=== PATIENT | female | born 1950 | race Caucasian/White ===

== ENCOUNTER 2018-01-15 09:31 | Inpatient (IN) | payer MEDICAID, MEDICARE ==
[~2018-01-15] VITALS: Ht 170.2 cm; Wt 96.6 kg
--- NOTE | 2018-01-15 09:32 | NUR ---
PT BIBA ALS FOR CONFUSION TO BED 4
--- NOTE | 2018-01-15 09:35 | NUR ---
PATIENT BIBA FOR ALOC FROM [facility], [facility]. PATIENT HAS HX OF CVA WITH RIGHT SIDED DEFICITS, DEVELOPMENTAL DELAYS, CARDIAC DISORDER UNKNOWN. PATIENT HAS BILATERAL LEG PITTING EDEMA, CAPILLARY REFILL ON LEFT BIG TOE >3 SEC. BEDSIDE EKG SHOWS SIGNS OF PVCS. UPON AUSCULTATION, PATIENT HAS EXPIRATORY WHEEZES BILATERAL. PATIENT GCS IS 13. [facility] ATTEMPTED IV UNSUCCESSFUL. PATIENT POSITIONED FOR COMFORT; HOB ELEVATED; BEDRAILS UP X2; BED DOWN. ER MD MADE AWARE OF PT STATUS.
[2018-01-15 09:36] VITALS: BP 147/56
[2018-01-15] MEDS ORDERED: SIMV20TA1 PO (09:43)
[2018-01-15] MEDS ORDERED: DIVA500T1 PO (09:43)
[2018-01-15] MEDS ORDERED: LACT10SO1 PO (09:43)
[2018-01-15] MEDS ORDERED: AMLO10TA PO (09:43)
[2018-01-15] MEDS ORDERED: MIRABULK PO (09:43)
[2018-01-15] MEDS ORDERED: LISI-420 PO ×2 (09:43→14:32)
[2018-01-15] MEDS ORDERED: SYN.05 PO ×2 (09:43→14:32)
[2018-01-15] MEDS ORDERED: MULT-2173 PO (09:43)
[2018-01-15] MEDS ORDERED: ASCO500T45 PO (09:43)
[2018-01-15] MEDS ORDERED: ROB PO (09:43)
[2018-01-15] MEDS ORDERED: POTA8TER12 PO (09:43)
[2018-01-15] MEDS ORDERED: INSU10SU8 SUBQ (09:43)
[2018-01-15] MEDS ORDERED: CARB200C PO (09:43)
[2018-01-15] MEDS ORDERED: FURO-570 PO (09:43)
[2018-01-15] MEDS ORDERED: GLU1I IM (09:44)
[2018-01-15] MEDS ORDERED: KETO2CRE3 TP (09:44)
[2018-01-15] MEDS ORDERED: ALBUTEROL SULFATE/IPRATROPIU 3 ML SOL IH ONE (10:20)
--- NOTE | 2018-01-15 10:27 | NUR ---
PATIENT TAKEN TO CT
--- NOTE | 2018-01-15 10:28 | NUR ---
PT TAKEN TO CT IN [place]
--- NOTE | 2018-01-15 10:42 | NUR ---
PATIENT BACK FROM CT
--- NOTE | 2018-01-15 10:55 | NUR ---
QUALITY ASSURANCE SUPERVISOR TRIM AT BEDSIDE FOR BLOOD COLLECTION
--- NOTE | 2018-01-15 11:14 | NUR ---
PT RECEIVING BREATHING TX, TOLERATING WELL. CAREGIVER AT BEDSIDE.
[2018-01-15 11:19] LABS: BASOPHILS % (AUTO) 0.3 % (0.0-2.0); EOSINOPHILS # (AUTO) 0.1 K/uL (0-0.4); EOSINOPHILS % (AUTO) 0.7 % (0.0-4.0); HEMOGLOBIN 11.9 g/dL (12.0-16.0); LYMPHOCYTES # (AUTO) 1.8 K/uL (2.5-16.5); LYMPHOCYTES % (AUTO) 21.6 % (20.5-51.1); MEAN CORPUSCULAR HEMOGLOBIN 30 pg (27-31); MEAN CORPUSCULAR HGB CONC 33 g/dL (33-37); MEAN CORPUSCULAR VOLUME 91.1 fL (80-94); MONOCYTES % (AUTO) 12.2 % (1.7-9.3); NEUTROPHILS # (AUTO) 5.5 K/uL (1.8-7.7); NEUTROPHILS % (AUTO) 65.2 % (42.2-75.2); PLATELET COUNT (AUTO) 250 K/uL (140-450); RED BLOOD CELL COUNT(AUTO) 3.95 MIL/uL (4.20-5.40); RED CELL DISTRIBUTION WIDTH 13.1 % (11.6-13.7); WHITE BLOOD COUNT (AUTO) 8.5 K/uL (4.8-10.8)
[2018-01-15 11:30] LABS: ANION GAP 10.8 (8-16); CARBON DIOXIDE 30.3 mmol/L (21-32); CREATININE 0.8 mg/dL (0.6-1.3); POTASSIUM 4.1 mmol/L (3.5-5.1)
[2018-01-15 11:36] LABS: ALBUMIN 2.2 g/dL (3.4-5.0); PROTHROMBIN TIME 10.3 secs (10.8-13.4); TOTAL BILIRUBIN 0.2 mg/dL (0.0-1.0)
--- NOTE | 2018-01-15 11:52 | NUR ---
# 16 FR Silverman catheter with ml utilizing sterile technique. Immediate return of ml urine noted. Bedside drainage bag placed below level of bladder. Urine sample collected and sent to lab. Pt tolerated procedure .
[2018-01-15] MEDS ORDERED: ONDANSETRON 4 MG/2 ML VIAL IVP PRN (12:30)
[2018-01-15] MEDS ORDERED: ACETAMINOPHEN 325 MG TAB PO PRN (12:30)
[2018-01-15] MEDS ORDERED: ZOLPIDEM 5 MG TAB PO PRN (12:30)
[2018-01-15 13:32] LABS: FREE T4 (FREE THYROXINE) 1.05 ng/dL (0.76-1.46); MAGNESIUM 1.9 mg/dL (1.8-2.4); PHOSPHORUS 3.3 mg/dL (2.5-4.9); THYROID STIMULATING HORMONE 2.87 uIU/mL (0.34-3.74)
--- NOTE | 2018-01-15 13:36 | NUR ---
PT ARRIVED ON THE UNIT WITH 2 ER NURSES. PT IS AWAKE AND ORIENTED X2. CAREGIVER IS ACCOMPANYING HER. PT IS MENTALLY DELAYED. PT HAS IV ON R UPPER CHEST 25G AND A 20G EJ SL. PT HAS A GORDON CATH IN PLACE. PT IS BEDBOUND. SKIN INTACT. HAS A WET DIAPER. REMOVED. ADMINISTERED THE TELE MONITOR. YELLOW SOCKS, BAND, AND SIGN ON DOOR. PT IS BEDBOUND. PT ROOM AIR. NO SIGNS OF DISTRESS. WILL CONTINUE TO MONITOR PT.
[2018-01-15 13:42] LABS: APPEARANCE,URINE SL CLOUDY (CLEAR); BILIRUBIN,URINE NEGATIVE (NEGATIVE); BLOOD, URINE NEGATIVE (NEGATIVE); COLOR,URINE YELLOW (YELLOW); LEUKOCYTE ESTERASE ,URINE NEGATIVE (NEGATIVE); NITRITE, URINE NEGATIVE (NEGATIVE); UGLUCOSE 2+ (NEGATIVE)
--- NOTE | 2018-01-15 13:52 | NUR ---
Patient will be admitted to care of DR NOGUEIRA. Admited to TELE. Will go to room. Belongings list completed. Report to .
--- NOTE | 2018-01-15 14:02 | NUR ---
V/S WITHIN NORMAL RANGE. MRSA SCREENING DONE. CAREGIVER LEFT. PT IS RESTING COMFORTABLY. WILL CONTINUE TO MONITOR PT. WILL CONTINUE THE ADMISSIONS PROCESS.
[2018-01-15] MEDS: NACL 0.9% 1,000 ML IV SCH (14:15)
[2018-01-15 15:33] VITALS: BP 165/63
[2018-01-15] MEDS ORDERED: guaiFENesin 20 MG/ML UDC PO PRN (15:45)
[2018-01-15] MEDS ORDERED: GLUCAGON 1 MG VIAL IM PRN (15:45)
[2018-01-15] MEDS ORDERED: DEXTROSE 50% 50 ML SYR IVP PRN (15:50)
[2018-01-15] MEDS ORDERED: ALBUTEROL SULFATE/IPRATROPIU 3 ML SOL IH PRN (15:50)
[2018-01-15] MEDS ORDERED: FUROSEMIDE 40 MG/4 ML VIAL IVP SCH (15:57)
[2018-01-15 16:00] VITALS: BP 111/61
--- NOTE | 2018-01-15 16:22 | NUR ---
R/T IS HERE. EKG IS BEING DONE.
[2018-01-15] MEDS ORDERED: ASPIRIN 325 MG TAB PO SCH (16:33)
--- NOTE | 2018-01-15 16:34 | NUR ---
PT UNABLE TO DO INCENTIVE SPIRAMOOTRY Addendum: 01/15/18 at 1635 by Tanesha Mccormick RT SPIROMETER
--- NOTE | 2018-01-15 17:08 | NUR ---
ADMINISTERED NC O2 2L VIA NC. O2 LOW 90%. OK PER DR. ARMSTRONG.
--- NOTE | 2018-01-15 17:28 | NUR ---
RADIOLOGY IS HERE FOR CAROTID US AND BILATERAL LEGS.
--- NOTE | 2018-01-15 19:24 | NUR ---
ENDORSED PT TO THE NIGHTSHIFT NURSE AT BEDSIDE FOR CONTINUITY OF CARE. PT IS IN STABLE CONDITION.
--- NOTE | 2018-01-15 19:34 | NUR ---
RECEIVED REPORT FROM DAY SHIFT RN, PATIENT RESTING IN BED, AWAKE AND RESPONSIVE, DOES NOT ANSWER QUESTIONS, BUT FOLLOW SIMPLE COMMENDS. NO S/S OF DISTRESS NOTED, RESPIRATION EVEN AND UNLABORED, IV PATENT AND INTACT, INFUSING NS AT 10ML/HR. RT EJ NOTED, SALINE LOCK, DRESSING DRY AND INTACT. GORDON IN PLACED, DRAINING URINE BY GRAVITY. CALL LIGHT WITHIN REACH, SAFETY MEASURE ENSURED, WILL CONTINUE TO MONITOR.
[2018-01-15 20:00] VITALS: BP 148/85
[2018-01-15] MEDS: ALBUTEROL SULFATE/IPRATROPIU 3 ML SOL IH SCH (20:00)
[2018-01-15] MEDS ORDERED: CARBAMAZEPINE 200 MG PO SCH (21:00)
[2018-01-15] MEDS: BLOOD GLUCOSE MONITORING 1 DEV DEV FS SCH (21:15)
[2018-01-15] MEDS: ASCORBIC ACID 500 MG TAB PO SCH (21:16)
[2018-01-15] MEDS: LISINOPRIL 20 MG TAB PO SCH (21:16)
[2018-01-15] MEDS: carBAMazepine 200 MG TAB PO SCH (21:16)
[2018-01-15] MEDS: DIVALPROEX 500 MG TABER PO SCH (21:16)
[2018-01-15] MEDS: DOCUSATE SODIUM 100 MG GELCAP PO SCH (21:16)
--- NOTE | 2018-01-15 21:20 | NUR ---
DUE MEDICATION GIVEN, PATIENT TOLERATED WELL. NO S/S OF DISTRESS NOTED, RESPIRATION EVEN AND UNLABORED, CALL LIGHT WITHIN REACH, SAFETY MEASURE ENSURED, WILL CONTINUE TO MONITOR.
[2018-01-15] MEDS: INSULIN LISPRO SLIDING SCALE 100 UNITS/ML VIAL SUBQ PRN (21:26)
--- NOTE | 2018-01-15 22:15 | NUR ---
PATIENT REFUSED US ARTERIAL BILATERAL LOWER EXTREMITIES, DR. CURTIS IS AWARE.
--- NOTE | 2018-01-15 22:23 | NUR ---
NO CHANGE IN CONDITION, RESPIRATION EVEN AND UNLABORED, REPOSITIONED PATIENT WITH THE GLASS MOLD REPAIRER, CALL LIGHT WITHIN REACH, SAFETY MEASURE ENSURED, WILL CONTINUE TO MONITOR.
[2018-01-16] VITALS: BP 159/78
--- NOTE | 2018-01-16 00:23 | NUR ---
DR. CURTIS IS AWARE OF BP 159/78, HR 90. NO ORDER RECEIVED AT THIS TIME.
--- NOTE | 2018-01-16 01:10 | NUR ---
PATIENT IS OFF THE UNIT FOR CT CHEST WITH CONTRAST.
--- NOTE | 2018-01-16 01:50 | NUR ---
PATIENT IS BACK FROM CT IN STABLE CONDITION, PROCESS OWNER SAID PATIENT WAS CRYING AND NOT COOPERATIVE, SO THE TECH COULD NOT GET CT CHEST WITH CONTRAS DONE. MADE DR. CURTIS AWARE, SAID," THAT'S FINE."
--- NOTE | 2018-01-16 03:37 | NUR ---
PATIENT IS SLEEPING, RESPIRATION EVEN AND UNLABORED, REPOSITIONED PATIENT WITH THE STONER OUT, CALL LIGHT WITHIN REACH, SAFETY MEASURE ENSURED, WILL CONTINUE TO MONITOR.
[2018-01-16 04:00] VITALS: BP 153/65
--- NOTE | 2018-01-16 05:47 | NUR ---
PATIENT HAD SMALL AMOUNT OF BOWEL MOVEMENT, CLEANED AND REPOSITIONED PATIENT WITH THE TIE LAYER, CALL LIGHT WITHIN REACH, SAFETY MEASURE ENSURED, WILL CONTINUE TO MONITOR.
[2018-01-16] MEDS: INSULIN LISPRO SLIDING SCALE 100 UNITS/ML VIAL SUBQ PRN ×3 (06:27→22:19)
[2018-01-16] MEDS: BLOOD GLUCOSE MONITORING 1 DEV DEV FS SCH ×4 (06:28→22:11)
[2018-01-16 06:45] LABS: BASOPHILS % (AUTO) 0.6 % (0.0-2.0); EOSINOPHILS # (AUTO) 0.2 K/uL (0-0.4); EOSINOPHILS % (AUTO) 1.9 % (0.0-4.0); HEMATOCRIT 36.2 % (36-48); HEMOGLOBIN 12.3 g/dL (12.0-16.0); LYMPHOCYTES # (AUTO) 1.8 K/uL (2.5-16.5); LYMPHOCYTES % (AUTO) 21.2 % (20.5-51.1); MEAN CORPUSCULAR HEMOGLOBIN 31 pg (27-31); MEAN CORPUSCULAR HGB CONC 34 g/dL (33-37); MEAN CORPUSCULAR VOLUME 90.4 fL (80-94); MONOCYTES # (AUTO) 1.1 K/uL (0.8-1.0); MONOCYTES % (AUTO) 12.2 % (1.7-9.3); NEUTROPHILS # (AUTO) 5.6 K/uL (1.8-7.7); NEUTROPHILS % (AUTO) 64.1 % (42.2-75.2); PLATELET COUNT (AUTO) 263 K/uL (140-450); WHITE BLOOD COUNT (AUTO) 8.7 K/uL (4.8-10.8)
[2018-01-16] MEDS: ALBUTEROL SULFATE/IPRATROPIU 3 ML SOL IH SCH ×3 (06:52→19:40)
[2018-01-16 06:59] LABS: CARBON DIOXIDE 29.5 mmol/L (21-32); CREATININE 0.6 mg/dL (0.6-1.3); MAGNESIUM 1.8 mg/dL (1.8-2.4); PHOSPHORUS 3.6 mg/dL (2.5-4.9); POTASSIUM 3.5 mmol/L (3.5-5.1)
[2018-01-16 07:07] LABS: CHOL/HDL RATIO 3.5 (1-4.5)
--- NOTE | 2018-01-16 07:15 | NUR ---
ENDORSED PLAN OF CARE TO DAY SHIFT RN, PATIENT RESTING IN BED, IN STABLE CONDITION.
--- NOTE | 2018-01-16 07:16 | NUR ---
RECEIVED REPORT FROM THE J2EE APPLICATION DEVELOPER NURSE AT BEDSIDE FOR CONTINUITY OF CARE. PT IS AWAKE AND ORIENTED. INTRODUCED MYSELF AND UPDATED THE BOARD. SKIN INTACT. IV ON R EJ 20G SL, R UPPER CHEST SL, F FA 20G NS AT 10ML/HR. SKIN INTACT, EXCEPT R HEEL, BLACK SCAB. POSSIBLY ESCHAR P.U. GORDON CATH IN PLACE. NO NC IN PLACE. PT LIKE TO TAKE IT OFF. PER J2EE APPLICATION DEVELOPER NURSE, PT REFUSED CT/ ANGIO, DOPPLER. WILL KEEP HER NPO. WILL NEED TO DO THE CT/ANGIO TODAY PER MD.
[2018-01-16 08:00] VITALS: BP 126/63
--- NOTE | 2018-01-16 09:12 | NUR ---
PATIENT HAS BEEN SCREENED AND CATEGORIZED MODERATE NUTRITION RISK. PATIENT WILL BE SEEN WITHIN 3-5 DAYS OF ADMISSION. 01/18/18 01/20/[address]
[2018-01-16] MEDS ORDERED: LORazepam 2 MG/ML VIAL IVP SCH ×2 (09:30→11:00)
[2018-01-16] MEDS: LEVOFLOXACIN 750 MG/D5W PREMIX 150 ML IV SCH (09:41)
[2018-01-16] MEDS: ECOTRIN 81 MG TABEC PO SCH (09:42)
[2018-01-16] MEDS: DOCUSATE SODIUM 100 MG GELCAP PO SCH ×2 (09:42→22:22)
[2018-01-16] MEDS: FUROSEMIDE 20 MG/2 ML VIAL IVP SCH ×2 (09:42→22:22)
[2018-01-16] MEDS: POLYETHYLENE GLYCOL 17 GM/PKT PO SCH (09:43)
[2018-01-16] MEDS: amLODIPine 5 MG TAB PO SCH (09:43)
[2018-01-16] MEDS: DIVALPROEX 500 MG TABER PO SCH ×2 (09:43→22:23)
[2018-01-16] MEDS: LEVOTHYROXINE 0.075 MG TAB PO SCH (09:44)
[2018-01-16] MEDS: POTASSIUM CHLORIDE 8 MEQ TABER PO SCH (09:44)
[2018-01-16] MEDS: PANTOPRAZOLE 40 MG TABEC PO SCH (09:44)
[2018-01-16] MEDS: ASCORBIC ACID 500 MG TAB PO SCH ×2 (09:45→22:23)
[2018-01-16] MEDS: carBAMazepine 200 MG TAB PO SCH ×2 (09:45→22:24)
[2018-01-16] MEDS: MULTIVITAMIN 1 TAB PO SCH (09:45)
[2018-01-16] MEDS: LISINOPRIL 20 MG TAB PO SCH ×2 (09:45→22:24)
[2018-01-16] MEDS: KETOCONAZOLE 2% 15 GM TUBE TP SCH (09:46)
[2018-01-16] MEDS: INSULIN NPH HUM/REG INSULIN HM 100 UNIT/ML 10 ML VIAL SUBQ SCH (09:47)
--- NOTE | 2018-01-16 09:50 | NUR ---
ADMINISTERED MORNING MEDS. CRUSHED IN APPLE SAUCE.PT TOLERATED WELL. WILL CONTINUE TO MONITOR PT.
--- NOTE | 2018-01-16 10:40 | NUR ---
C/T IS TAKING PT FOR THE CT/ANGIO. ATIVAN GIVEN PRIOR. PT SLEEPING SOUNDLY. WE WILL SEE IF SHE WILL COOPERATE.
--- NOTE | 2018-01-16 11:00 | NUR ---
CT CALLED. PT UNCOOPERATIVE. OVERRIDE ANOTHER 1 MG OF ATIVAN AND ADMINISTERED IN THE CT ROOM. ONCE THEY STARTED THE CT CONTRAST, IV INFILTRATED. IV NO GOOD. BROUGHT PT BACK. NOTIFIED .
[2018-01-16] MEDS ORDERED: LORazepam 2 MG/ML VIAL ONE (11:01)
[2018-01-16 12:00] VITALS: BP 155/67
[2018-01-16] MEDS: NACL 0.9% 1,000 ML IV SCH (12:28)
[2018-01-16] MEDS ORDERED: hePARIN / DEXT 5% PREMIX 250 ML IV SCH ×3 (14:15→15:30)
[2018-01-16] MEDS ORDERED: HEPARIN PER PHARMACY MC PRN (14:15)
--- NOTE | 2018-01-16 14:22 | NUR ---
U/S TECH HERE FOR PT'S DOPPLER STUDIES IN BLE.
[2018-01-16 16:00] VITALS: BP 126/63
--- NOTE | 2018-01-16 16:10 | NUR ---
VQ SCAN TO BE DONE AROUND 1999. TECH WILL BE COMING FROM [place]. AWARE. WILL CONTINUE TO KEEP PT NPO.
--- NOTE | 2018-01-16 18:54 | NUR ---
PT SLEEPING SOUNDLY. NO SIGNS OF DISTRESS. WILL CONTINUE TO MONITOR PT.
--- NOTE | 2018-01-16 19:24 | NUR ---
ENDORSED PT TO THE PATTERN TECHNICIAN NURSE AT BEDSIDE FOR CONTINUITY OF CARE. PT IS RESTING COMFORTABLY. NO SIGNS OF DISTRESS. HEPARIN DRIP INFUSING AT 14ML/HR. PTT AT 2200.
--- NOTE | 2018-01-16 19:25 | NUR ---
RECEIVED PT FROM AM NURSE AT THE BEDSIDE FOR CONTINUITY OF CARE. PT IS ON TELE MONITOR. INTRODUCED SELF TO PT AND UPDATED BOARD. PT HAS RT EXTERNAL JUGULAR ACCESS ,20G. HEPARIN DRIP INFUSING WELL. LINE INTACT AND PATENT. PT HAS ANOTHER IV ACCESS ON RT CHEST , 24 G. LINE IS INTACT. PT HAS GORDON CATHETER. DRAINING WITH CLEAR URINE. SIDE RAILS ARE PADDED FOR SEIZURE PRECAUTION. BED IN LOW POSITION. WILL DO FREQUENT CHECKS. CALL LIGHT WITHIN REACH. WILL CONTINUE TO MONITOR.
--- NOTE | 2018-01-16 19:52 | NUR ---
RECEIVED PATIENT ON 2L NASAL CANNULA. SCHEDULED BREATHING TREATMENT ADMINISTERED. PT TOLERATED TX WELL, NO ADVERSE SIDE EFFECTS. NO RESPIRATORY DISTRESS NOTED AT THIS TIME. WILL CONTINUE TO MONITOR.
[2018-01-16 20:00] VITALS: BP 144/69
--- NOTE | 2018-01-16 20:45 | NUR ---
TECH HERE FOR PULMONARY VQ SCAN .
[2018-01-16] MEDS ORDERED: SIMVASTATIN 40 MG TAB PO SCH (21:00)
--- NOTE | 2018-01-16 22:15 | NUR ---
PULMONARY VQ SCAN DONE AT BEDSIDE . WILL FOLLOW UP RESULT.
[2018-01-16] MEDS: CLINDAMYCIN 600 MG in DEXTROSE 5% 50 ML IV SCH (22:28)
--- NOTE | 2018-01-16 22:42 | NUR ---
VBrowsarity SCAN TECH CAME BACK. HE SAID RESULT MAY NOT BE READY TONIGHT. BUT STILL HAVE TO FOLLOW UP
--- NOTE | 2018-01-17 00:15 | NUR ---
HEPARIN DRIP WITHHELD FOR 1 HR PER PROTOCOL. PTT 96.2.
[2018-01-17 00:30] VITALS: BP 121/59
--- NOTE | 2018-01-17 01:15 | NUR ---
ITZEL SEPULVEDA RESIDENT INFORMED ABOUT PULMONARY VQ SCAN RESULT. DR MARQUES , MIGHT STOP HEPARIN DRIP IN MORNING. WAITING FOR DR AYALA TO DECIDE STOPPING OF HEPARIN. OKAY TO CONTINUE HEPARIN PER PROTOCOL AT THIS TIME. Addendum: 01/17/18 at 0122 by John Valadez RN CORRECTION DR SEPULVEDA
[2018-01-17 03:45] VITALS: BP 121/57
--- NOTE | 2018-01-17 04:15 | NUR ---
PT HAS BEEN REPOSITIONED FOR COMFORT. NO C/O ANY PAIN NOTED.
[2018-01-17] MEDS: CLINDAMYCIN 600 MG in DEXTROSE 5% 50 ML IV SCH ×2 (05:20→12:28)
[2018-01-17] MEDS: BLOOD GLUCOSE MONITORING 1 DEV DEV FS SCH ×3 (06:32→16:49)
[2018-01-17] MEDS: INSULIN LISPRO SLIDING SCALE 100 UNITS/ML VIAL SUBQ PRN ×2 (06:33→13:01)
--- NOTE | 2018-01-17 06:33 | NUR ---
BS CHECKED , 205 NOTED. ADMINISTERED 4 UNITS OF HUMALOG.
--- NOTE | 2018-01-17 07:10 | NUR ---
ENDORSED PT TO AM NURSE AT BEDSIDE FOR CONTINUITY OF CARE. PT IN STABLE CONDITION.
--- NOTE | 2018-01-17 07:11 | NUR ---
RECEIVED REPORT FROM UMBRELLA FRAME MAKER NURSE AT THE BEDSIDE FOR CONTINUITY OF CARE. PT IS ON TELE MONITOR. INTRODUCED SELF TO PT AND UPDATED BOARD. PT HAS RT EXTERNAL JUGULAR ACCESS, 20G WITH HEPARIN DRIP INFUSING WELL, INTACT, ASYMPTOMATIC, AND PATENT. PT HAS IV ACCESS ON RT CHEST, 24 G, PATENT, INTACT, AND ASYMPTOMATIC, INFUSING NS AT 10ML/HR. PT HAS GORDON CATHETER. DRAINING TO GRAVITY WITH CLEAR, YELLOW URINE. SAFETY AND SEIZURE PRECAUTIONS IN PLACE, SIDE RAILS ARE PADDED, BED IN LOW POSITION. CALL LIGHT WITHIN REACH. WILL CONTINUE TO MONITOR PATIENT.
[2018-01-17] MEDS: ALBUTEROL SULFATE/IPRATROPIU 3 ML SOL IH SCH ×2 (07:19→11:34)
--- NOTE | 2018-01-17 07:40 | NUR ---
DOCTORS MAKING THEIR ROUNDS. ORDERED HEPARIN DRIP TO BE DISCONTINUED. HEPARIN DRIP DISCONTINUED.
[2018-01-17 08:00] VITALS: BP 126/85
[2018-01-17 08:40] LABS: BASOPHILS % (AUTO) 0.4 % (0.0-2.0); EOSINOPHILS # (AUTO) 0.2 K/uL (0-0.4); EOSINOPHILS % (AUTO) 2.6 % (0.0-4.0); HEMATOCRIT 39.1 % (36-48); LYMPHOCYTES # (AUTO) 1.5 K/uL (2.5-16.5); LYMPHOCYTES % (AUTO) 19.2 % (20.5-51.1); MEAN CORPUSCULAR HEMOGLOBIN 31 pg (27-31); MEAN CORPUSCULAR HGB CONC 33 g/dL (33-37); MEAN CORPUSCULAR VOLUME 91.5 fL (80-94); MONOCYTES # (AUTO) 0.7 K/uL (0.8-1.0); MONOCYTES % (AUTO) 8.8 % (1.7-9.3); NEUTROPHILS # (AUTO) 5.4 K/uL (1.8-7.7); PLATELET COUNT (AUTO) 278 K/uL (140-450); RED BLOOD CELL COUNT(AUTO) 4.27 MIL/uL (4.20-5.40); RED CELL DISTRIBUTION WIDTH 13.1 % (11.6-13.7); WHITE BLOOD COUNT (AUTO) 7.9 K/uL (4.8-10.8)
[2018-01-17 08:50] LABS: MAGNESIUM 1.9 mg/dL (1.8-2.4)
[2018-01-17 08:51] LABS: ANION GAP 12.1 (8-16); CARBON DIOXIDE 29.4 mmol/L (21-32); CREATININE 0.8 mg/dL (0.6-1.3); POTASSIUM 3.5 mmol/L (3.5-5.1)
[2018-01-17] MEDS: MULTIVITAMIN 1 TAB PO SCH (09:05)
[2018-01-17] MEDS: PANTOPRAZOLE 40 MG TABEC PO SCH (09:05)
[2018-01-17] MEDS: DIVALPROEX 500 MG TABER PO SCH (09:05)
[2018-01-17] MEDS: LEVOTHYROXINE 0.075 MG TAB PO SCH (09:05)
[2018-01-17] MEDS: amLODIPine 5 MG TAB PO SCH (09:05)
[2018-01-17] MEDS: FUROSEMIDE 20 MG/2 ML VIAL IVP SCH (09:05)
[2018-01-17] MEDS: LISINOPRIL 20 MG TAB PO SCH (09:06)
[2018-01-17] MEDS: carBAMazepine 200 MG TAB PO SCH (09:06)
[2018-01-17] MEDS: ASCORBIC ACID 500 MG TAB PO SCH (09:06)
[2018-01-17] MEDS: DOCUSATE SODIUM 100 MG GELCAP PO SCH (09:06)
[2018-01-17] MEDS: POTASSIUM CHLORIDE 8 MEQ TABER PO SCH (09:07)
[2018-01-17] MEDS: POLYETHYLENE GLYCOL 17 GM/PKT PO SCH (09:09)
--- NOTE | 2018-01-17 09:30 | NUR ---
LAB CALLED ABOUT CRITICAL VALUE OF APTT 60.0. INFORMED DR. LUNDBERG. NO NEW ORDERS AT THIS TIME.
[2018-01-17] MEDS: KETOCONAZOLE 2% 15 GM TUBE TP SCH (09:31)
[2018-01-17] MEDS: LEVOFLOXACIN 750 MG/D5W PREMIX 150 ML IV SCH (09:37)
[2018-01-17] MEDS: INSULIN NPH HUM/REG INSULIN HM 100 UNIT/ML 10 ML VIAL SUBQ SCH (09:43)
[2018-01-17] MEDS: ECOTRIN 81 MG TABEC PO SCH (09:50)
--- NOTE | 2018-01-17 09:50 | NUR ---
ADMINISTERED ORDERED MEDICATIONS. PATIENT TOLERATED THEM. PATIENT NOW RESTING IN BED SLEEPING, NO SIGNS OF DISTRESS OR SOB NOTED. FLACC-0. SAFETY AND SEIZURE PRECAUTION IN PLACE, BED ON LOWEST SETTING, BED ALARM ON, CALL LIGHT WITHIN REACH, WILL CONTINUE TO MONITOR PATIENT. Addendum: 01/17/18 at 1027 by Carroll Saul RN BLOOD SUGAR 275, ORDERED HUMULIN 70/30 INSULIN ADMINISTERED.
--- NOTE | 2018-01-17 10:15 | NUR ---
PATIENT VOMITED. DOCTOR LISA AWARE. PATIENT CLEANED, PATIENT NOW CLEAN AND DRY. PATIENT NOW RESTING IN BED, NO SIGNS OF DISTRESS OR SOB NOTED. FLACC-0. SAFETY AND SEIZURE PRECAUTION IN PLACE, CALL LIGHT WITHIN REACH. WILL CONTINUE TO MONITOR PATIENT.
--- NOTE | 2018-01-17 10:40 | NUR ---
PATIENT HAD BOWEL MOVEMENT. PATIENT CHANGED, AND REPOSITIONED FOR COMFORT AND TO OFFLOAD PRESSURE ULCERS. PATIENT NOW CLEAN AND DRY. NO DISTRESS NOTED AT THIS TIME. BREATHING EVEN AND UNLABORED ON ROOM AIR, FLACC-0. SAFETY PRECAUTION IN PLACE, CALL LIGHT WITHIN EASY REACH. WILL CONTINUE TO MONITOR PATIENT.
--- NOTE | 2018-01-17 11:20 | NUR ---
EDGAR FROM CASE MANAGEMENT CALLED. GAVE MEL GARCIA OF [facility], PHONE NUMBER: [phone] TO GIVE REPORT ONCE PATIENT IS DISCHARGED. ALSO GAVE DELTA, IN CHARGE OF [facility]'S TRANSPORT SERVICES, PHONE NUMBER [phone].
--- NOTE | 2018-01-17 11:31 | NUR ---
Metal Rolling Mill Operator Note: I requested patient's nurse RN Carroll to contact and provide report to [facility]. I also informed her that intern product marketing manager from [facility] could provide transportation for patient upon discharge.
--- NOTE | 2018-01-17 11:35 | NUR ---
PT IS ASLEEP. HHN TX NOT GIVEN. NO SOB OR DISTRESS NOTED.
[2018-01-17 12:09] VITALS: BP 123/59
[2018-01-17] MEDS: NACL 0.9% 1,000 ML IV SCH (12:28)
--- NOTE | 2018-01-17 13:41 | NUR ---
PATIENT HAS BEEN SCREENED AND CATEGORIZED HIGH NUTRITION RISK. PATIENT WILL BE SEEN WITHIN 1-2 DAYS OF ADMISSION. 01/17/[address]
[2018-01-17] MEDS ORDERED: LACT1.4C PO (15:20)
[2018-01-17] MEDS ORDERED: LEVO750T51 PO (15:20)
[2018-01-17] MEDS ORDERED: PANT40EC28 PO (15:20)
[2018-01-17] MEDS ORDERED: CLIN300C2 PO (15:20)
[2018-01-17] MEDS ORDERED: ASPI-1173 PO (15:20)
[2018-01-17] MEDS ORDERED: HUMSLIDE SUBQ (15:20)
[2018-01-17] MEDS ORDERED: METF500T PO (15:20)
--- NOTE | 2018-01-17 15:46 | NUR ---
01/17/18 RD INITIAL ASSESSMENT COMPLETED PLEASE REFER TO NUTRITION ASSESSMENT UNDER CARE ACTIVITY FOR ESTIMATED NUTRITIONAL NEEDS. 1.CONTINUE CCHO PUREE, HONEY THICK TOLERATED 2. RD TO FOLLOW-UP 2-3 DAYS, HIGH RISK ANGEL GO RD
--- NOTE | 2018-01-17 16:05 | NUR ---
DISCHARGE ORDER IN. CALLED MEL GARCIA FOR [facility] AT [phone]. NO RESPONSE, LEFT VOICEMAIL WITH CALL BACK NUMBER. CALLED DELTA AT [phone] TO ARRANGE TRANSPORTATION FOR PATIENT. DELTA SAID SHE WILL CALL TRANSPORT AND ARRANGE TRANSPORTATION WHEN SHE GETS OFF THE PHONE AND CALL [facility]SE WELL. WILL FOLLOW UP AND CALLED JOSE AGAIN. PATIENT CURRENTLY RESTING IN BED, SLEEPING, NO SIGNS OF DISTRESS OR SOB NOTED, FLACC-0. SAFETY AND SEIZURE PRECAUTION IN PLACE, CALL LIGHT WITHIN REACH. WILL CONTINUE TO MONITOR PATIENT.
--- NOTE | 2018-01-17 16:10 | NUR ---
JOSE LEAL FROM [facility] CALLED BACK. REPORT GIVEN TO HER. UPDATED HER ON PATIENT'S STATUS AND CONDITION AND NEW LABS AND TEST RESULTS. JOSE VERBALIZED UNDERSTANDING. STATED THAT STAFF FROM [facility] WILL COME AND PICK PATIENT UP AT 1700.
--- NOTE | 2018-01-17 16:30 | NUR ---
PATIENT HAD BOWEL MOVEMENT. PATIENT CHANGED, AND REPOSITIONED FOR COMFORT AND TO OFFLOAD PRESSURE ULCERS. PATIENT NOW CLEAN AND DRY. PATIENT CHANGED INTO TRANSFER GOWN. IVS REMOVED, IV CATHETERS INTACT, MINIMAL BLEEDING NOTED. ID BANDS CUT. NO DISTRESS NOTED AT THIS TIME. BREATHING EVEN AND UNLABORED ON ROOM AIR, FLACC-0. SAFETY PRECAUTION IN PLACE, CALL LIGHT WITHIN EASY REACH. WILL CONTINUE TO MONITOR PATIENT AND WAIT FOR [facility] STAFF TO COME AND PICK PATIENT UP.
--- NOTE | 2018-01-17 17:00 | NUR ---
DISCHARGE PHOTOGRAPH TAKEN OF PATIENT'S WOUND.
--- NOTE | 2018-01-17 17:10 | NUR ---
DELTA, FROM [facility], CAME TO PICK PATIENT UP. PATIENT MOVED BY MARTINEZ LIFT TO HER WHEELCHAIR. PATIENT WHEELED OFF THE FLOOR BY DELTA. PATIENT TOOK ALL HER BELONGINGS WITH HER. PATIENT IN STABLE CONDITION. Addendum: 01/17/18 at 1927 by Carroll Saul RN TELE MONITOR REMOVED. PATIENT TOLERATED IT WELL.
--- NOTE | 2018-01-17 17:53 | NUR ---
LAB CALLED, PATIENT POSITIVE FOR MDRO AND ESBL IN THE URINE. FORWARDED ALONG TO PATIENT'S FACILITY RN, JOSE, AT [phone].
== END 2018-01-17 17:10 | disposition home or self-care (01) | DRG 48 ==
LOC: MED 09:31 → MTU 12:34
PROVIDERS: ADMIT Family Medicine; ATTEND Family Medicine
DX: G90.9 Disorder of the autonomic nervous system, unspecified (principal); J96.01 Acute respiratory failure with hypoxia; N17.0 Acute kidney failure with tubular necrosis; E43 Unspecified severe protein-calorie malnutrition; J69.0 Pneumonitis due to inhalation of food and vomit; G93.41 Metabolic encephalopathy; I50.43 Acute on chronic combined systolic (congestive) and diastolic (congestive) heart failure; D68.59 Other primary thrombophilia; N10 Acute pyelonephritis; E11.69 Type 2 diabetes mellitus with other specified complication; E87.8 Other disorders of electrolyte and fluid balance, not elsewhere classified; R56.9 Unspecified convulsions; I69.398 Other sequelae of cerebral infarction; E87.1 Hypo-osmolality and hyponatremia; K21.9 Gastro-esophageal reflux disease without esophagitis; I11.0 Hypertensive heart disease with heart failure; L97.309 Non-pressure chronic ulcer of unspecified ankle with unspecified severity; E03.9 Hypothyroidism, unspecified; B35.3 Tinea pedis; M81.0 Age-related osteoporosis without current pathological fracture; E66.9 Obesity, unspecified; D64.9 Anemia, unspecified; Z79.899 Other long term (current) drug therapy; Z68.33 Body mass index [BMI] 33.0-33.9, adult; Z79.4 Long term (current) use of insulin; Z99.3 Dependence on wheelchair; E11.42 Type 2 diabetes mellitus with diabetic polyneuropathy
CPT/HCPCS: 36415; 36600; 51702; 70450; 71045; 76604; 78582; 80048; 80053; 80156; 81003; 82140; 82150; 82550; 82553; 82803; 82948; 83036; 83605; 83690; 83735; 83874; 83880; 84100; 84439; 84443; 84484; 85025; 85379; 85610; 85730; 87040; 87081; 87086; 87186; 93005; 93880; 93925; 93970; 94640; 99285; J1644; J1815; J1940; J1956; J2060; J3490; J7030; J7060; J7620; Q0092

== ENCOUNTER 2018-05-31 12:22 | Emergency (ER) | payer MEDICAID, MEDICARE ==
[~2018-05-31] VITALS: Ht 165.1 cm; Wt 96.2 kg
[~2018-05-31 12:22] MED LIST: AMLO10TA PO; ASCO500T45 PO; ASPI-1173 PO; CARB200C PO; CLIN300C2 PO; DIVA500T1 PO; FURO-570 PO; GLU1I IM; HUMSLIDE SUBQ; INSU10SU8 SUBQ; KETO2CRE3 TP; LACT1.4C PO; LEVO750T51 PO; LISI-420 PO; METF500T PO; MIRABULK PO; MULT-2173 PO; PANT40EC28 PO; POTA8TER12 PO; ROB PO; SIMV20TA1 PO; SYN.05 PO
--- NOTE | 2018-05-31 12:27 | NUR ---
PT TAKEN BY WHEELCHAIR TO ER BED 09
[2018-05-31 12:35] VITALS: BP 120/50
--- NOTE | 2018-05-31 12:48 | NUR ---
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 PER GATE CLERK PT ACT NEUROLOGICALLY AT BASE LINE, ; DENIES PT N/V/D. AMB WITH W/C. ACCU CHECK 236 AT THIS TIME. HX; MRCP, SEIZURE, DM, HTN, HYPOTHYRODISM, GERD, RESSURE ULCER OF THE FEET, TIA, HYPERLIPIDEMIA. PATIENT POSITIONED FOR COMFORT. ARPIT DIGGS MADE AWARE OF PT STATUS. Addendum: 05/31/18 at 1342 by MED1 l foot pressure sore
--- NOTE | 2018-05-31 13:39 | NUR ---
Patient being evaluated by DR SANDOVAL at bedside.
[2018-05-31 13:55] VITALS: BP 120/50
--- NOTE | 2018-05-31 13:55 | NUR ---
Patient discharged with v/s stable. Written and verbal after care instructions given and explained. Patient alert, oriented and verbalized understanding of instructions. Ambulatory with steady gait. All questions addressed prior to discharge. ID band removed. Patient advised to follow up with PMD. Rx of BACTRIMKEFLEX& given. Patient educated on indication of medication including possible reaction and side effects. Opportunity to ask questions provided and answered.
== END 2018-05-31 13:55 | disposition home or self-care (01) ==
LOC: MED 12:22
DX: L97.529 Non-pressure chronic ulcer of other part of left foot with unspecified severity (principal); L03.116 Cellulitis of left lower limb; E11.9 Type 2 diabetes mellitus without complications; K21.9 Gastro-esophageal reflux disease without esophagitis; I10 Essential (primary) hypertension; E03.9 Hypothyroidism, unspecified; Z86.73 Personal history of transient ischemic attack (TIA), and cerebral infarction without residual deficits; Z79.4 Long term (current) use of insulin; Z79.899 Other long term (current) drug therapy; Z79.82 Long term (current) use of aspirin
CPT/HCPCS: 82948; 99283

== ENCOUNTER 2018-10-16 11:22 | Emergency (ER) | payer MEDICARE, MEDICAID ==
[~2018-10-16] VITALS: Ht 175.3 cm; Wt 92.5 kg
[~2018-10-16 11:22] MED LIST changes: -INSU10SU8 SUBQ; +NOV7030 SUBQ
--- NOTE | 2018-10-16 11:27 | NUR ---
PT TAKEN IN WHEELCHAIR BY CAREGIVER TO ER BED 09
[2018-10-16 11:37] VITALS: BP 119/59
--- NOTE | 2018-10-16 11:47 | NUR ---
68 Y/O F PT BROUGHT IN BY CAREGIVER W/C/O "WORSENING HEEL ULCERS." PER CAREGIVER PT HAS HAD THEM FOR 3 MONTHS BUT NOW THEY ARE DRAINING PUS AND FOUL SMELLING. BILAT ULCERS NOTED TO HEELS WITH YELLOW/GREEN, SEROSANGUANOUS DRAINAGE. +CMS. +1 PITTING EDEMA NOTED TO BILAT FEET. HR EVEN AND REGULAR, BL PERIPHERAL PULSES PRESENT; PT DENIES ANY FEVER, CP, SOB, OR COUGH AT THIS TIME; PT STATES 0/10 PAIN AT THIS TIME; VSS; PATIENT POSITIONED FOR COMFORT; HOB ELEVATED; BEDRAILS UP X2; BED DOWN.
[2018-10-16] MEDS ORDERED: CEPHALEXIN 500 MG CAP PO ONE (11:50)
--- NOTE | 2018-10-16 12:44 | NUR ---
Patient discharged with v/s stable. Written and verbal after care instructions given and explained. Patient alert, oriented and verbalized understanding of instructions. Wheel Chair Assisted with by caregiver. All questions addressed prior to discharge. ID band removed. Patient advised to follow up with PMD. Rx of bactrim and keflex given. Patient educated on indication of medication including possible reaction and side effects. Opportunity to ask questions provided and answered.
== END 2018-10-16 12:44 | disposition home or self-care (01) ==
LOC: MED 11:22
DX: L89.629 Pressure ulcer of left heel, unspecified stage (principal); L89.619 Pressure ulcer of right heel, unspecified stage; E11.9 Type 2 diabetes mellitus without complications; K21.9 Gastro-esophageal reflux disease without esophagitis; I10 Essential (primary) hypertension; E07.9 Disorder of thyroid, unspecified; Z86.73 Personal history of transient ischemic attack (TIA), and cerebral infarction without residual deficits; Z79.4 Long term (current) use of insulin; Z79.82 Long term (current) use of aspirin; Z79.899 Other long term (current) drug therapy
CPT/HCPCS: 99283

== ENCOUNTER 2018-11-04 10:42 | Inpatient (IN) | payer MEDICAID, MEDICARE ==
[~2018-11-04] VITALS: Ht 167.6 cm; Wt 92.1 kg
[2018-11-04 11:15] VITALS: BP 122/68
--- NOTE | 2018-11-04 11:16 | NUR ---
PT IN WHEELCHAIR TO ER BED 02
[2018-11-04] MEDS ORDERED: NACL 0.9% 1,000 ML IV SCH (12:57)
[2018-11-04] MEDS ORDERED: VANCOMYCIN 1,000 MG in DEXTROSE 5% 250 ML IV ONE (13:00)
--- NOTE | 2018-11-04 13:29 | NUR ---
LAB AT BEDSIDE
[2018-11-04 14:00] LABS: BASOPHILS % (AUTO) 0.5 % (0.0-2.0); EOSINOPHILS # (AUTO) 0.2 K/uL (0-0.4); EOSINOPHILS % (AUTO) 2.2 % (0.0-4.0); HEMATOCRIT 35.5 % (36-48); HEMOGLOBIN 11.9 g/dL (12.0-16.0); LYMPHOCYTES % (AUTO) 22.6 % (20.5-51.1); MEAN CORPUSCULAR HEMOGLOBIN 31 pg (27-31); MEAN CORPUSCULAR HGB CONC 34 g/dL (33-37); MEAN CORPUSCULAR VOLUME 91.9 fL (80-94); MONOCYTES # (AUTO) 0.8 K/uL (0.8-1.0); MONOCYTES % (AUTO) 9.2 % (1.7-9.3); NEUTROPHILS # (AUTO) 5.9 K/uL (1.8-7.7); NEUTROPHILS % (AUTO) 65.5 % (42.2-75.2); PLATELET COUNT (AUTO) 276 K/uL (140-450); RED BLOOD CELL COUNT(AUTO) 3.86 MIL/uL (4.20-5.40); RED CELL DISTRIBUTION WIDTH 13.9 % (11.6-13.7); WHITE BLOOD COUNT (AUTO) 9.1 K/uL (4.8-10.8)
[2018-11-04 14:20] LABS: ALBUMIN 3.2 g/dL (3.4-5.0); ANION GAP 11.8 (8-16); CARBON DIOXIDE 33.4 mmol/L (21-32); CREATININE 1.2 mg/dL (0.6-1.3); POTASSIUM 4.2 mmol/L (3.5-5.1); TOTAL BILIRUBIN 0.2 mg/dL (0.0-1.0)
[2018-11-04] MEDS ORDERED: PIPERACILLIN/TAZOBACTAM 3.375 GM in DEXTROSE 5% 50 ML IV ONE (14:25)
[2018-11-04 14:32] LABS: PROTHROMBIN TIME 9.4 secs (10.8-13.4)
[2018-11-04] MEDS ORDERED: PIPERACILLIN/TAZOBACTAM 3.375 GM VIAL IV ONE (14:40)
[2018-11-04] MEDS ORDERED: VANCOMYCIN 1,000 MG VIAL ONE (14:40)
[2018-11-04] MEDS ORDERED: ALBUTEROL SULFATE/IPRATROPIU 3 ML SOL IH ONE (14:50)
--- NOTE | 2018-11-04 15:27 | NUR ---
IV 24GA RT FOREARM. PT DORIAN WELL
[2018-11-04 17:50] VITALS: BP 130/68
--- NOTE | 2018-11-04 17:50 | NUR ---
RECEIVED PT FROM ED AAOX1-2, CONFUSED. NO SOB NOTED. NO C/O PAIN AT THIS TIME. CAREGIVER AT THE BEDSIDE. IV TO RT HAND PATENT AND INTACT. V/S : 97.1, HR: 70/MIN, BP: 130/68 MMHG, RESP, 18/MIN. O2 SATS AT 92% ON ROOM AIR. SETTLE PT IN BED. MRSA SWABS TAKEN AND SENT TO LAB.
--- NOTE | 2018-11-04 17:54 | NUR ---
PATIENT ADMITTED TO THE CARE OF DR MELLO ON TELE UNIT ROOM 121-B. REPORT GIVEN TO RN. PATIENT STABLE DURING TRANSFER.
[2018-11-04] MEDS ORDERED: ACETAMINOPHEN 325 MG TAB PO PRN (18:20)
[2018-11-04] MEDS ORDERED: INSULIN LISPRO SLIDING SCALE 100 UNITS/ML VIAL SUBQ PRN (18:20)
[2018-11-04] MEDS ORDERED: ONDANSETRON 4 MG/2 ML VIAL IVP PRN (18:20)
[2018-11-04] MEDS ORDERED: GLUCAGON 1 MG VIAL IM PRN (18:20)
[2018-11-04] MEDS ORDERED: guaiFENesin 20 MG/ML UDC PO PRN (18:20)
[2018-11-04] MEDS ORDERED: MORPHINE SULFATE 2 MG/ML SYR IVP PRN (18:20)
[2018-11-04] MEDS ORDERED: HYDROcodone/APAP 5/325 MG 1 TAB TAB PO PRN (18:20)
[2018-11-04] MEDS ORDERED: LORazepam 2 MG/ML VIAL IVP PRN (18:20)
[2018-11-04] MEDS ORDERED: DEXTROSE 50% 50 ML SYR IVP PRN (18:20)
[2018-11-04] MEDS: NACL 0.9% 1,000 ML IV SCH (18:30)
--- NOTE | 2018-11-04 18:55 | NUR ---
PT AWAKE, WATCHING TV. NO SOB NOTED. NO COMPLAINTS. WILL ENDORSE TO NEXT SHIFT NURSE TO CONTINUE WITH THE ADMISSION PROCESS.
--- NOTE | 2018-11-04 19:30 | NUR ---
RECEIVED REPORT AT BEDSIDE FOR CONTINUITY OF CARE. PT AAOX1. NO SOB NO S/S OF DISTRESS ON RA. PT IV NOTED RFA 24G NS 100ML/HR. BED LOWERED PT ORIENTED TO ROOM. PT ALSO HAS BOOTS TO PROTECT HEELS AND HAS A PRODUCTIVE WET COUGHT. WILL CONTINUE TO MONITOR.
[2018-11-04] MEDS: BLOOD GLUCOSE MONITORING 1 DEV DEV FS SCH (21:09)
[2018-11-04] MEDS: DIVALPROEX 500 MG TABER PO SCH (21:32)
[2018-11-04] MEDS: carBAMazepine 200 MG TAB PO SCH (21:32)
[2018-11-04] MEDS: ASCORBIC ACID 500 MG TAB PO SCH (21:32)
[2018-11-04] MEDS: LISINOPRIL 20 MG TAB PO SCH (21:33)
[2018-11-05] VITALS (7 sets, daily range): BP systolic 125–164; BP diastolic 47–80
--- NOTE | 2018-11-05 00:25 | NUR ---
CALLED [facility] FOR IMMUNIZATION RECORD. [facility] WILL SEND PATIENT INFORMATION RECORD VIA FAX IN THE AM
[2018-11-05] MEDS ORDERED: PIPERACILLIN/TAZOBACTAM 3.375 GM VIAL IV ONE ×2 (00:54→05:41)
[2018-11-05] MEDS: PIPER/TAZO 3.375GM/D5W PREMIX 50 ML IV SCH ×5 (01:24→23:17)
[2018-11-05] MEDS: NACL 0.9% 1,000 ML IV SCH ×2 (04:23→14:20)
[2018-11-05] MEDS: LEVOTHYROXINE 0.05 MG TAB PO SCH (05:35)
[2018-11-05] MEDS: PANTOPRAZOLE 40 MG TABEC PO SCH (05:35)
[2018-11-05] MEDS: INSULIN LISPRO SLIDING SCALE 100 UNITS/ML VIAL SUBQ PRN ×2 (05:37→11:42)
[2018-11-05] MEDS: BLOOD GLUCOSE MONITORING 1 DEV DEV FS SCH ×4 (05:38→21:59)
[2018-11-05 06:31] LABS: BASOPHILS % (AUTO) 0.3 % (0.0-2.0); EOSINOPHILS # (AUTO) 0.2 K/uL (0-0.4); EOSINOPHILS % (AUTO) 2.2 % (0.0-4.0); HEMATOCRIT 32.4 % (36-48); HEMOGLOBIN 10.9 g/dL (12.0-16.0); LYMPHOCYTES % (AUTO) 22.7 % (20.5-51.1); MEAN CORPUSCULAR HEMOGLOBIN 31 pg (27-31); MEAN CORPUSCULAR HGB CONC 34 g/dL (33-37); MEAN CORPUSCULAR VOLUME 92.8 fL (80-94); MONOCYTES % (AUTO) 11.2 % (1.7-9.3); NEUTROPHILS # (AUTO) 5.5 K/uL (1.8-7.7); NEUTROPHILS % (AUTO) 63.6 % (42.2-75.2); PLATELET COUNT (AUTO) 253 K/uL (140-450); RED BLOOD CELL COUNT(AUTO) 3.49 MIL/uL (4.20-5.40); RED CELL DISTRIBUTION WIDTH 13.8 % (11.6-13.7); WHITE BLOOD COUNT (AUTO) 8.7 K/uL (4.8-10.8)
[2018-11-05 06:54] LABS: ANION GAP 12.9 (8-16); CARBON DIOXIDE 27.3 mmol/L (21-32); CREATININE 0.9 mg/dL (0.6-1.3); POTASSIUM 4.2 mmol/L (3.5-5.1)
[2018-11-05 07:06] LABS: MAGNESIUM 1.8 mg/dL (1.8-2.4); PHOSPHORUS 3.8 mg/dL (2.5-4.9)
--- NOTE | 2018-11-05 07:26 | NUR ---
ENDORSED REPORT TO DAYSHIFT NURSE AT BEDSIDE FOR CONTINUITY OF CARE.
--- NOTE | 2018-11-05 07:27 | NUR ---
REPORT RECEIVED FROM CHAIN SAW DRIVER NURSE, PT AWAKE ALERT, RESP EVEN UNLABORED, SKIN WARM DRY COLOR WNL, DENIES ANY PAIN OR NEEDS, POC REVIEWD, ALL SAFETY MEASURES IN PLACE, WILL CONTINUE TO MONITOR.
--- NOTE | 2018-11-05 08:06 | NUR ---
PATIENT HAS BEEN SCREENED AND CATEGORIZED HIGH NUTRITION RISK. PATIENT WILL BE SEEN WITHIN 1-2 DAYS OF ADMISSION. 11/05/18-11/06/[address]
[2018-11-05] MEDS: LACTOBACILLUS RHAMNOSUS GG 1 EACH CAP PO SCH ×3 (08:30→16:28)
[2018-11-05] MEDS: FUROSEMIDE 40 MG TAB PO SCH ×2 (08:30→16:29)
[2018-11-05] MEDS: amLODIPine 5 MG TAB PO SCH (08:30)
[2018-11-05] MEDS: carBAMazepine 200 MG TAB PO SCH ×2 (08:30→20:19)
[2018-11-05] MEDS: metFORMIN 500 MG TAB PO SCH ×2 (08:30→16:28)
[2018-11-05] MEDS: DIVALPROEX 500 MG TABER PO SCH ×2 (08:31→20:19)
[2018-11-05] MEDS: ASPIRIN 81 MG TAB.CHEW PO SCH (08:31)
[2018-11-05] MEDS: MULTIVITAMIN 1 TAB PO SCH (08:31)
[2018-11-05] MEDS: LISINOPRIL 20 MG TAB PO SCH ×2 (08:31→20:19)
[2018-11-05] MEDS: ASCORBIC ACID 500 MG TAB PO SCH ×2 (08:31→20:20)
[2018-11-05] MEDS: POLYETHYLENE GLYCOL 17 GM/PKT PO SCH (08:32)
[2018-11-05] MEDS ORDERED: CLINDAMYCIN 150 MG CAP PO SCH (09:00)
[2018-11-05] MEDS ORDERED: NON-FORMULARY ITEM (Multivitamin (Multiple Vitamins) 1 TAB) PO SCH (09:00)
--- NOTE | 2018-11-05 10:05 | NUR ---
BED BATH GIVEN PERICARE DONE, PT POSITIONED FOR COMFORT, NO IMMEDIATE NEEDS AT THIS TIME, WILL CONTINUE TO MONITOR
[2018-11-05] MEDS ORDERED: LEVOFLOXACIN 750 MG TAB PO SCH (10:45)
[2018-11-05] MEDS: POTASSIUM CHLORIDE 8 MEQ TABER PO SCH (11:30)
[2018-11-05] MEDS: KETOCONAZOLE 2% 15 GM TUBE TP SCH (11:31)
--- NOTE | 2018-11-05 11:49 | NUR ---
10U INSULIN GIVEN FOR BS 368, PT SLEEPING, AROUSES EASILY, HEEL FOAM DRESSING APPLIED, IV ANTIBIOTIC STARTED PER ORDER, IV SITE WNL,
--- NOTE | 2018-11-05 12:33 | NUR ---
PT SITTING UP EATING LUNCH WITH ASSIST.
--- NOTE | 2018-11-05 12:46 | NUR ---
DR MELLO CALLED TO VERIFY MEDICATION PER PHARMACY, [facility], CONTINUE NPH, TRANSFER PT TO [facility].
[2018-11-05] MEDS ORDERED: INSULIN NPH HUM/REG INSULIN HM 100 UNIT/ML 10 ML VIAL SUBQ SCH (13:09)
--- NOTE | 2018-11-05 14:05 | NUR ---
PT RESTING QUIETLY IN NAD, RESP EVEN UNLABORED, AROUSES EASILY, DENIES ANY NEEDS, WILL CONTINUE TO MONITOR
--- NOTE | 2018-11-05 15:18 | NUR ---
11/05/18 RD INITIAL ASSESSMENT COMPLETED PLEASE REFER TO NUTRITION ASSESSMENT UNDER CARE ACTIVITY FOR ESTIMATED NUTRITIONAL NEEDS. 1. CONTINUE CARDIAC DIET TOLERATED 2. RD PROVIDED FOOD AND DRUG INTERACTION EDUCATION 3. RD TO FOLLOW-UP 3-5 DAYS, MODERATE RISK ANGEL GO RD
--- NOTE | 2018-11-05 15:55 | NUR ---
LARGE BM, SOFT, PERICARE DONE, POSITIONED FOR COMFORT, WILL CONTINUE TO MONITOR.
[2018-11-05] MEDS ORDERED: PNEUMOCOCCAL VACCINE 23 MCG/0.5 ML VIAL IMVAC SCH (17:00)
--- NOTE | 2018-11-05 17:05 | NUR ---
PT SLEEPING QUIETLY, IVF INFUSING, IV SITE WNL, BILAT HEELS IN BOOTS, CALL RIOS WITHIN REACH, SIDE RAIL UP, BED LOCKED IN LOW POSITION , NO IMMEDIATE NEEDS AT THIS TIME, WILL CONTINUE TO MONITOR.
--- NOTE | 2018-11-05 18:05 | NUR ---
PT ASSISTED WITH DINNER, TOTAL ASSIST, ATE 100%.
--- NOTE | 2018-11-05 19:13 | NUR ---
REPORT GIVEN TO STEAMER TENDER NURSE, PT IN STABLE CONDITION.
--- NOTE | 2018-11-05 19:30 | NUR ---
RECEIVED REPORT AT BEDSIDE FOR CONTINUITY OF CARE. PT AAOX1. NO SOB NO S/S OF DISTRESS ON RA. PT IV NOTED RFA 24G NS 100ML/HR. BED LOWERED PT ORIENTED TO ROOM. PT ALSO HAS BOOTS TO PROTECT HEELS AND HAS A PRODUCTIVE WET COUGH. WILL CONTINUE TO MONITOR.
[2018-11-05] MEDS: SIMVASTATIN 20 MG TAB PO SCH (20:33)
[2018-11-06] MEDS: NACL 0.9% 1,000 ML IV SCH ×3 (01:33→21:28)
[2018-11-06 06:37] LABS: ANION GAP 13.6 (8-16); CARBON DIOXIDE 25.2 mmol/L (21-32); CREATININE 0.9 mg/dL (0.6-1.3); POTASSIUM 3.8 mmol/L (3.5-5.1)
[2018-11-06] MEDS: LEVOTHYROXINE 0.05 MG TAB PO SCH (06:52)
[2018-11-06] MEDS: PIPER/TAZO 3.375GM/D5W PREMIX 50 ML IV SCH ×3 (06:52→18:48)
[2018-11-06] MEDS: PANTOPRAZOLE 40 MG TABEC PO SCH (06:52)
[2018-11-06] MEDS: BLOOD GLUCOSE MONITORING 1 DEV DEV FS SCH ×4 (06:52→21:46)
--- NOTE | 2018-11-06 07:39 | NUR ---
ENDORSED REPORT TO DAYSHIFT NURSE AT BEDSIDE FOR CONTINUITY OF CARE.
--- NOTE | 2018-11-06 07:42 | NUR ---
RECEIVED PT FROM WAREHOUSE SHIPPING SUPERVISOR NURSE WALDO, PT IS AWAKE WITH SIDE RAILS UP AND AMPARO LIGHT WITHIN REACH, PT HAS AN IV LINE ON THE LEFT WRIST G.24 WITH NS AT 10ML/HR INFUSING, FALL PRECAUTION INITIATED, PT IS ONN CONTACT PRECAUTION FOR MDRO AND SCHOOL OFFICE ASSISTANT OF URINE, PROTOCOL INITIATED. PT DENIES PAIN AND NO SOB NOTED. NO SIGN OF DISTRESS NOTED AND WILL CONTINUE TO MONITOR PT.
[2018-11-06 08:00] VITALS: BP 154/72
[2018-11-06 08:29] LABS: HEMATOCRIT 33.9 % (36-48); HEMOGLOBIN 11.1 g/dL (12.0-16.0); MEAN CORPUSCULAR HEMOGLOBIN 31 pg (27-31); MEAN CORPUSCULAR HGB CONC 33 g/dL (33-37); MEAN CORPUSCULAR VOLUME 93.9 fL (80-94); PLATELET COUNT (AUTO) 234 K/uL (140-450); RED BLOOD CELL COUNT(AUTO) 3.61 MIL/uL (4.20-5.40); RED CELL DISTRIBUTION WIDTH 13.7 % (11.6-13.7); WHITE BLOOD COUNT (AUTO) 10.1 K/uL (4.8-10.8)
[2018-11-06 08:30] LABS: BASOPHILS % (AUTO) 0.4 % (0.0-2.0); EOSINOPHILS # (AUTO) 0.3 K/uL (0-0.4); EOSINOPHILS % (AUTO) 3.4 % (0.0-4.0); LYMPHOCYTES # (AUTO) 2.8 K/uL (2.5-16.5); LYMPHOCYTES % (AUTO) 28.1 % (20.5-51.1); MONOCYTES # (AUTO) 1.1 K/uL (0.8-1.0); MONOCYTES % (AUTO) 10.7 % (1.7-9.3); NEUTROPHILS # (AUTO) 5.8 K/uL (1.8-7.7); NEUTROPHILS % (AUTO) 57.4 % (42.2-75.2)
[2018-11-06] MEDS: POLYETHYLENE GLYCOL 17 GM/PKT PO SCH (08:57)
[2018-11-06] MEDS: LACTOBACILLUS RHAMNOSUS GG 1 EACH CAP PO SCH ×3 (08:58→17:00)
[2018-11-06] MEDS: ASCORBIC ACID 500 MG TAB PO SCH ×2 (08:58→21:30)
[2018-11-06] MEDS: carBAMazepine 200 MG TAB PO SCH ×2 (08:59→21:30)
[2018-11-06] MEDS: metFORMIN 500 MG TAB PO SCH ×2 (08:59→17:00)
[2018-11-06] MEDS: MULTIVITAMIN 1 TAB PO SCH (08:59)
[2018-11-06] MEDS ORDERED: LEVOFLOXACIN 750 MG TAB PO SCH (09:00)
[2018-11-06] MEDS: LISINOPRIL 20 MG TAB PO SCH ×2 (09:00→21:29)
[2018-11-06] MEDS: ASPIRIN 81 MG TAB.CHEW PO SCH (09:00)
[2018-11-06] MEDS: amLODIPine 5 MG TAB PO SCH (09:01)
[2018-11-06] MEDS: FUROSEMIDE 40 MG TAB PO SCH ×2 (09:01→17:00)
[2018-11-06] MEDS: DIVALPROEX 500 MG TABEC PO SCH ×2 (09:02→21:29)
[2018-11-06] MEDS: KETOCONAZOLE 2% 15 GM TUBE TP SCH (09:03)
[2018-11-06] MEDS: POTASSIUM CHLORIDE 8 MEQ TABER PO SCH (09:03)
[2018-11-06] MEDS: INSULIN NPH HUM/REG INSULIN HM 100 UNIT/ML 10 ML VIAL SUBQ SCH (09:27)
[2018-11-06] MEDS: INSULIN LISPRO SLIDING SCALE 100 UNITS/ML VIAL SUBQ PRN ×3 (12:22→21:48)
--- NOTE | 2018-11-06 12:27 | NUR ---
PT IS AWAKE AND SEATED ON THE BED, BLOOD GLUCOSE CHECK DONE AND RESULT IS 187, 2UNITS INSULIN AND ORAL MEDICATION WERE GIVEN AND PT TOLERATED IT. NO SIGN OF DISTRESS NOTED AND WILL MONITOR PT..
--- NOTE | 2018-11-06 12:40 | NUR ---
WOUND CARE EVALUATION NOTE: REASON FOR EVALUATION: MULTIPLE WOUNDS SKIN ASSESSMENT DONE WITH PRIMARY RN AT 9:30 AM WITH THIS 58 Y/O FEMALE PT ADMITTED FROM [facility] TO [facility] WITH INITIAL DX OF PAIN ON HEEL ULCER. PAST MEDICAL HX INCLUDES CVA RIGHT SIDE WEAKNESS, HTN, DM AND GERD. PREVIOUS ED VISIT FOR HEELS ULCERS. PT IS AWAKE, SKIN IS WARM AND DRY, BLE NO HAIR GROWTH, DORSAL PEDAL PULSES PRESENT CAPILLARY REFILLED < 3 SEC. X [address]ES[address] F/C IN PLACE, NHUNG COLOR OF MODERATE AMOUNT URINE OUTPUT. PLAN OF CARE DISCUSSED WITH PRIMARY RN AND PT. AND PT VERBALIZES UNDERSTANDING. INTEGUMENTARY: -INTERTRIGO TO RIGHT AND LEFT GROINS, SKIN INTACT WITH REDNESS -POSTERIOR RIGHT THIGH AND RIGHT LATERAL FOOT TO 5TH DIGIT OLD SCARS -PRESSURE INJURY DTI TO RIGHT HEEL, 1X1CM 100% MAROON COLOR -PRESSURE INJURY UN-STAGEABLE TO LEFT HEEL 5X6CM WITH 60% YELLOW SLOUGH AND 40% GRANULATING TISSUE ON WOUND BED, MODERATE AMOUNT OF SEROSANGUINEOUS DRAINAGE, NO ODOR, PERIWOUND SKIN INTACT WITH SURROUNDING REDNESS INDICATED FURTHER DAMAGE - SACRALCOCCYX BLANCHABLE REDNESS WITH SKIN INTACT. RECOMMENDATIONS: -KEEP SKIN DRY AND CLEAN AT ALL TIMES - CLEANSE LEFT HEEL ULCER WITH WOUND CLEANSING SOLUTION AND APPLY THERAHONEY GEL TO COVER WITH DRY DRESSING QD AND PRN IF SOILING -APPLY OPTIFORM TO RIGHT HEEL AND CHANGE Q5D AND PRN IF DISLODGED - CLEANSE RIGHT AND LEFT GROINS WITH SOAP AND WATER, PAT DRY AND APPLY INTER DRY CLOTH CHANGE Q5 DAYS AND PRN IF SOILING -OFFLOAD BILATERAL HEELS BY PLACING PILLOWS UNDER CALVES UNLESS OTHERWISE CONTRAINDICATED -HEEL RAISERS TO BILATERAL HEELS AT ALL TIMES -PRESSURE REDISTRIBUTION SURFACE THERAPY -TURN AND REPOSITION Q2H, OFFLOAD SACRALCOCCYX BY TURNING RIGHT AND LEFT -MONITOR SKIN CONDITION EACH TIME PT IS REPOSITIONS -CONTINUE TO FOLLOW RD RECOMMENDATIONS ALL ABOVE RECOMMENDATIONS DISCUSSED WITH PRIMARY RN WILL FOLLOW UP PT Q7-10 DAYS. PLEASE CONTACT WOUND CARE NURSE FOR ANY QUESTION AND CHANGE OF WOUND CONDITION.
--- NOTE | 2018-11-06 12:44 | NUR ---
PT WAS FED AND ATE LUNCH ABOUT 80% AND TOLERATED IT. WILL MONITOR PT.
[2018-11-06] MEDS ORDERED: INTERDRY CLOTH TP SCH (12:50)
[2018-11-06] MEDS: THERAHONEY GEL 42.5 GM TP SCH (13:00)
[2018-11-06 16:00] VITALS: BP 139/82
--- NOTE | 2018-11-06 17:30 | NUR ---
PT IS OFF UNIT NOW FOR A SECOND ROUND OF BONE SCAN.
--- NOTE | 2018-11-06 19:40 | NUR ---
ENDORSED PT TO [facility] SHIFT NURSE, DESTINY PHILLIPS FOR CONTINUITY OF CARE, PT IS STABLE AT THIS TIME.
--- NOTE | 2018-11-06 19:41 | NUR ---
RECEIVED ENDORSEMENT FROM AM SHIFT RN; PT IS AWAKE, A/Ox2, CONFUSED, UNABLE TO MAKE NEEDS KNOWN. NO SOB OR DISTRESS NOTED. PATIENT HAS AN IV LINE ON THE LEFT WRIST, 24 GAUGE, WITH NS AT 100ML/HR. FALL PRECAUTION INITIATED, PT IS ON CONTACT PRECAUTION FOR MDRO AND ENOLOGIST OF URINE, PROTOCOL INITIATED. CALL LIGHT WITHIN REACH, BED IN THE LOWEST POSITION. INITIAL ASSESSMENT DONE. WILL CONTINUE TO MONITOR.
[2018-11-06] MEDS: SIMVASTATIN 20 MG TAB PO SCH (21:30)
--- NOTE | 2018-11-06 22:05 | NUR ---
FREQUENT ROUNDS DONE, PATIENT REPOSITIONED. LINENS AND CHUX CHANGED, TOLERATED WELL.
[2018-11-07] VITALS: BP 132/78
--- NOTE | 2018-11-07 00:10 | NUR ---
VITALS TAKEN, NO SOB OR DISTRESS NOTED.
[2018-11-07] MEDS: PIPER/TAZO 3.375GM/D5W PREMIX 50 ML IV SCH ×5 (00:39→23:19)
--- NOTE | 2018-11-07 02:35 | NUR ---
PATIENT REPOSITIONED. PATIENT ASLEEP, VISIBLE CHEST RISE AND FALL NOTED.
--- NOTE | 2018-11-07 04:30 | NUR ---
ROUNDS DONE, PATIENT TURNED, LINENS CHANGED. SMALL BM NOTED.
[2018-11-07] MEDS: NACL 0.9% 1,000 ML IV SCH ×2 (05:19→17:08)
[2018-11-07] MEDS: PANTOPRAZOLE 40 MG TABEC PO SCH (06:03)
[2018-11-07] MEDS: LEVOTHYROXINE 0.05 MG TAB PO SCH (06:05)
--- NOTE | 2018-11-07 06:10 | NUR ---
DUE MEDS GIVEN, TOLERATED WELL.
[2018-11-07 06:58] LABS: BASOPHILS % (AUTO) 0.4 % (0.0-2.0); EOSINOPHILS # (AUTO) 0.2 K/uL (0-0.4); EOSINOPHILS % (AUTO) 2.7 % (0.0-4.0); HEMATOCRIT 33.8 % (36-48); HEMOGLOBIN 11.2 g/dL (12.0-16.0); LYMPHOCYTES # (AUTO) 2.2 K/uL (2.5-16.5); LYMPHOCYTES % (AUTO) 26.7 % (20.5-51.1); MEAN CORPUSCULAR HEMOGLOBIN 31 pg (27-31); MEAN CORPUSCULAR HGB CONC 33 g/dL (33-37); MEAN CORPUSCULAR VOLUME 92.8 fL (80-94); MONOCYTES # (AUTO) 0.9 K/uL (0.8-1.0); MONOCYTES % (AUTO) 10.7 % (1.7-9.3); NEUTROPHILS # (AUTO) 4.9 K/uL (1.8-7.7); NEUTROPHILS % (AUTO) 59.5 % (42.2-75.2); PLATELET COUNT (AUTO) 230 K/uL (140-450); RED BLOOD CELL COUNT(AUTO) 3.64 MIL/uL (4.20-5.40); WHITE BLOOD COUNT (AUTO) 8.2 K/uL (4.8-10.8)
--- NOTE | 2018-11-07 07:05 | NUR ---
ENDORSED PATIENT TO AM SHIFT RN; PATIENT IN STABLE CONDITION.
[2018-11-07] MEDS: BLOOD GLUCOSE MONITORING 1 DEV DEV FS SCH ×4 (07:09→20:51)
--- NOTE | 2018-11-07 07:10 | NUR ---
RECEIVED PT FROM [facility] NURSERADHA, PT IS AWAKE AND LYING ON THE BED WITH SIDE RAISL UP AND CALL LIGHT WITHIN REACH, PT IS ON FALL PRECAUTION, PT HAS AN IV LINE ON THE LEFT HAND G. 24 WITH NS INFUSING AT A 100ML/HR, INTACT, NO SIGN OF DISTRESS NOTED AND WILL CONTINUE TO MONITOR PT.
[2018-11-07 08:00] VITALS: BP 155/73
[2018-11-07 08:18] LABS: CARBON DIOXIDE 24.9 mmol/L (21-32); CREATININE 0.9 mg/dL (0.6-1.3); POTASSIUM 3.9 mmol/L (3.5-5.1)
--- NOTE | 2018-11-07 08:20 | NUR ---
PT IS AWAKE AND VITAL SIGNS WAS TAKEN AND IS WITHIN NORMAL LIMIT, NO SIGN OF DISTRESS NOTED AND WILL MONITOR PT.
[2018-11-07] MEDS: POTASSIUM CHLORIDE 8 MEQ TABER PO SCH (10:11)
[2018-11-07] MEDS: POLYETHYLENE GLYCOL 17 GM/PKT PO SCH (10:11)
[2018-11-07] MEDS: FUROSEMIDE 40 MG TAB PO SCH ×2 (10:12→17:22)
[2018-11-07] MEDS: ASCORBIC ACID 500 MG TAB PO SCH ×2 (10:12→20:45)
[2018-11-07] MEDS: DIVALPROEX 500 MG TABEC PO SCH ×2 (10:12→20:45)
[2018-11-07] MEDS: MULTIVITAMIN 1 TAB PO SCH (10:12)
[2018-11-07] MEDS: carBAMazepine 200 MG TAB PO SCH ×2 (10:12→20:44)
--- NOTE | 2018-11-07 10:12 | NUR ---
PT IS AWAKE AND VITAL SIGNS WAS CHECKED AND IS WITHIN NORMAL LIMIT, BLOOD GLUCOSE CHECKED AND RESULT IS 297, INSULIN SCHEDULED IN AM WAS GIVEN AND ALL ORAL MEDICATIONS WERE GIVEN WELL AND PT TOLERATED ALL OF IT. NO SIGN OF DISTRESS NOTED AND WILL MONITOR PT.
[2018-11-07] MEDS: LISINOPRIL 20 MG TAB PO SCH ×2 (10:13→20:45)
[2018-11-07] MEDS: amLODIPine 5 MG TAB PO SCH (10:13)
[2018-11-07] MEDS: ASPIRIN 81 MG TAB.CHEW PO SCH (10:13)
[2018-11-07] MEDS: KETOCONAZOLE 2% 15 GM TUBE TP SCH (10:14)
[2018-11-07] MEDS: INSULIN NPH HUM/REG INSULIN HM 100 UNIT/ML 10 ML VIAL SUBQ SCH (10:16)
[2018-11-07] MEDS: LACTOBACILLUS RHAMNOSUS GG 1 EACH CAP PO SCH ×3 (10:33→17:22)
[2018-11-07] MEDS: metFORMIN 500 MG TAB PO SCH ×2 (10:33→17:22)
--- NOTE | 2018-11-07 11:30 | NUR ---
PT IS AWAKE AND BLOOD GLUCOSE CHECKED DONE AND RESULT IS 281, INSULIN COVERAGE WAS GIVEN AND PT TOLERATED IT. WILL MONITOR PT.
[2018-11-07] MEDS: INSULIN LISPRO SLIDING SCALE 100 UNITS/ML VIAL SUBQ PRN ×2 (12:30→20:59)
[2018-11-07] MEDS: THERAHONEY GEL 42.5 GM TP SCH (13:00)
[2018-11-07 16:00] VITALS: BP 158/79
--- NOTE | 2018-11-07 17:24 | NUR ---
PT IS AWAKE, ON RT LATERAL SIDE AND LYING ON THE BED, SIDE RAILS ARE UP AND CALL LIGHT WITHIN REACH, ORAL MEDICATIONS WERE GIVEN AND PT TOLERATED IT. NO SIGN OF DISTRESS NOTED AND WILL CONTINUE TO MONITOR PT.
--- NOTE | 2018-11-07 19:30 | NUR ---
ENDORSED PT TO SOCIAL ORGANIZATION PROFESSOR NURSERADHA FOR CONTINUITY OF CARE, PT IS AWAKE ON SEMI-ECHOLS'S POSITION, TALKING AND IS STABLE AT THIS TIME, IVF BAG WAS CHANGED.
--- NOTE | 2018-11-07 19:40 | NUR ---
RECEIVED ENDORSEMENT FROM AM SHIFT RN; PT IS AWAKE, A/Ox2, CONFUSED, UNABLE TO MAKE NEEDS KNOWN. NO SOB OR DISTRESS NOTED. PATIENT HAS AN IV LINE ON THE LEFT WRIST, 24 GAUGE, INTACT. FALL PRECAUTION INITIATED, PT IS ON CONTACT PRECAUTION FOR MDRO AND OIL AND GAS FIELD TECHNICIAN OF URINE, PROTOCOL INITIATED. CALL LIGHT WITHIN REACH, BED IN THE LOWEST POSITION. INITIAL ASSESSMENT DONE. WILL CONTINUE TO MONITOR.
--- NOTE | 2018-11-07 20:30 | NUR ---
ADMINISTERED DUE MEDS, NO SOB OR DISTRESS NOTED. Addendum: 11/07/18 at 2353 by Emre Felix RN PATIENT WAS CLEANED, CHUX AND LINENS WERE CHANGED. REPOSITIONED, TOLERATED WELL.
[2018-11-07] MEDS: SIMVASTATIN 20 MG TAB PO SCH (20:45)
--- NOTE | 2018-11-07 23:52 | NUR ---
ROUNDS DONE, VITALS TAKEN. PATIENT IS ASLEEP, VISIBLE CHEST RISE AND FALL NOTED.
[2018-11-08] VITALS: BP 147/66
--- NOTE | 2018-11-08 01:26 | NUR ---
PATIENT ASLEEP, EYES CLOSED, VISIBLE CHEST RISE AND FALL NOTED.
[2018-11-08] MEDS: NACL 0.9% 1,000 ML IV SCH ×3 (02:06→21:56)
--- NOTE | 2018-11-08 03:44 | NUR ---
FREQUENT CHECKS MADE. PATIENT ASLEEP, NO SOB OR DISTRESS NOTED.
[2018-11-08] MEDS: PIPER/TAZO 3.375GM/D5W PREMIX 50 ML IV SCH ×3 (05:02→18:53)
[2018-11-08] MEDS: PANTOPRAZOLE 40 MG TABEC PO SCH (05:42)
[2018-11-08] MEDS: LEVOTHYROXINE 0.05 MG TAB PO SCH (05:43)
[2018-11-08 06:48] LABS: EOSINOPHILS # (AUTO) 0.3 K/uL (0-0.4); LYMPHOCYTES # (AUTO) 2.5 K/uL (2.5-16.5); PLATELET COUNT (AUTO) 234 K/uL (140-450)
[2018-11-08] MEDS: BLOOD GLUCOSE MONITORING 1 DEV DEV FS SCH ×4 (06:50→20:37)
[2018-11-08 06:52] LABS: BASOPHILS % (AUTO) 0.4 % (0.0-2.0); EOSINOPHILS % (AUTO) 3.1 % (0.0-4.0); HEMOGLOBIN 11.4 g/dL (12.0-16.0); LYMPHOCYTES % (AUTO) 26.5 % (20.5-51.1); MEAN CORPUSCULAR HEMOGLOBIN 31 pg (27-31); MEAN CORPUSCULAR HGB CONC 33 g/dL (33-37); MEAN CORPUSCULAR VOLUME 93.4 fL (80-94); MONOCYTES # (AUTO) 1.1 K/uL (0.8-1.0); MONOCYTES % (AUTO) 11.4 % (1.7-9.3); NEUTROPHILS # (AUTO) 5.6 K/uL (1.8-7.7); NEUTROPHILS % (AUTO) 58.6 % (42.2-75.2); RED BLOOD CELL COUNT(AUTO) 3.75 MIL/uL (4.20-5.40); RED CELL DISTRIBUTION WIDTH 13.9 % (11.6-13.7); WHITE BLOOD COUNT (AUTO) 9.5 K/uL (4.8-10.8)
[2018-11-08 07:19] LABS: ALBUMIN 2.5 g/dL (3.4-5.0); ANION GAP 9.1 (8-16); CARBON DIOXIDE 27.2 mmol/L (21-32); CREATININE 0.8 mg/dL (0.6-1.3); POTASSIUM 3.3 mmol/L (3.5-5.1); TOTAL BILIRUBIN 0.2 mg/dL (0.0-1.0)
--- NOTE | 2018-11-08 07:25 | NUR ---
ENDORSED PATIENT TO AM SHIFT RN; PATIENT IN STABLE CONDITION.
--- NOTE | 2018-11-08 07:27 | NUR ---
RECEIVED BEDSIDE REPORT FROM AUDIT INTERN NURSE. PT IS AWAKE, AOX2 TO NAME AND PLACE;CONFUSED. ABLE TO FOLLOW SIMPLE COMMANDS AND MAKE NEEDS KNOWN. DENIES PAIN. RESPIRATION IS EVEN AND UNLABORED. RA. NO SIGNS OF DISTRESS NOTED. PATIENT HAS AN IV LINE ON THE LEFT WRIST, 24 GAUGE, INTACT. FALL PRECAUTION INITIATED, PT IS ON CONTACT PRECAUTION FOR MDRO AND CHIEF CATALYST OPERATOR OF URINE, PROTOCOL INITIATED. CALL LIGHT WITHIN REACH, BED IN THE LOWEST POSITION. DISCUSSED PLAN OF CARE FOR TODAY. WILL CONTINUE TO MONITOR.
[2018-11-08 08:00] VITALS: BP 155/76
[2018-11-08] MEDS: LACTOBACILLUS RHAMNOSUS GG 1 EACH CAP PO SCH ×3 (08:28→17:24)
[2018-11-08] MEDS: carBAMazepine 200 MG TAB PO SCH ×2 (08:29→20:28)
[2018-11-08] MEDS: FUROSEMIDE 40 MG TAB PO SCH ×2 (08:29→17:24)
[2018-11-08] MEDS: ASCORBIC ACID 500 MG TAB PO SCH ×2 (08:29→20:28)
[2018-11-08] MEDS: LISINOPRIL 20 MG TAB PO SCH ×2 (08:29→20:28)
[2018-11-08] MEDS: metFORMIN 500 MG TAB PO SCH ×2 (08:29→17:24)
[2018-11-08] MEDS: MULTIVITAMIN 1 TAB PO SCH (08:30)
[2018-11-08] MEDS: ASPIRIN 81 MG TAB.CHEW PO SCH (08:30)
[2018-11-08] MEDS: amLODIPine 5 MG TAB PO SCH (08:30)
[2018-11-08] MEDS: DIVALPROEX 500 MG TABEC PO SCH ×2 (08:30→20:28)
[2018-11-08] MEDS: KETOCONAZOLE 2% 15 GM TUBE TP SCH (08:41)
[2018-11-08] MEDS: POLYETHYLENE GLYCOL 17 GM/PKT PO SCH (08:42)
[2018-11-08] MEDS: POTASSIUM CHLORIDE 8 MEQ TABER PO SCH (08:42)
[2018-11-08] MEDS: INSULIN NPH HUM/REG INSULIN HM 100 UNIT/ML 10 ML VIAL SUBQ SCH (08:44)
--- NOTE | 2018-11-08 08:49 | NUR ---
ADMINISTERED MEDS PER MD ORDER. PT'S POTASSIUM LEVEL IS 3.3. PT TOLERATED WELL. PT IS WATCHING TV ON BED. NO SIGNS OF DISTRESS NOTED.
--- NOTE | 2018-11-08 11:02 | NUR ---
PT IS RESTING ON AT THIS TIME, NO SIGNS OF DISTRESS NOTED.
--- NOTE | 2018-11-08 12:08 | NUR ---
PUT A CALL IN FOR JOSE SANDS RN CAREGIVER AT THE FACILITY ABOUT WHETHER THEY GIVE IV ANTIBIOTICS THERE. WAITING FOR CALL BACK.
[2018-11-08] MEDS: INSULIN LISPRO SLIDING SCALE 100 UNITS/ML VIAL SUBQ PRN ×3 (12:11→20:40)
--- NOTE | 2018-11-08 12:23 | NUR ---
ADMINISTERED MEDS PER MD ORDER. PT IS SITTING UP ON BED AND STUMMEL SELECTOR IS FEEDING HER LUNCH. NO SIGNS OF DISTRESS NOTED.
--- NOTE | 2018-11-08 13:09 | NUR ---
WOUND CARE RE-EVALUATION: -RIGHT HEEL PRESSURE INJURY DTI TO RIGHT HEEL IS PROGRESSING TO UN-STAGEABLE 2X2CM BROWN SCAB, FOAM DRESSING IN PLACE, APPLY HEEL RAISER AT ALL TIMES.
[2018-11-08] MEDS: THERAHONEY GEL 42.5 GM TP SCH (13:18)
--- NOTE | 2018-11-08 13:18 | NUR ---
CHANGED SOILED DRESSING AND APPLIED THERAHONEY. PT TOLERATED WELL. NO SIGNS OF DISTRESS NOTED.
--- NOTE | 2018-11-08 14:20 | NUR ---
CALLED SELVIN AT FACILITY. THEY DO NOT DO IV ANTIBIOTICS.
[2018-11-08] MEDS ORDERED: POTASSIUM CHLORIDE 10 MEQ TABER PO SCH (14:30)
--- NOTE | 2018-11-08 14:32 | NUR ---
CALLED [facility]. 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 HE WILL CONTACT THE FLOOR.
--- NOTE | 2018-11-08 14:53 | NUR ---
RECEIVED A CALL FROM LAB THAT PT IS POSITIVE OF MRSA. NOTIFIED HEADLINE WRITER. AND CONTACT PRECAUTION INITIAL.
--- NOTE | 2018-11-08 15:09 | NUR ---
Water Pump Servicer Note: Per manager rn case at [facility], Komal Cleveland [facility] may be contacted for snf placement. I faxed inquiry to [facility]. Per Sy from [facility], they need final cultures, Template Reproduction Technician Komal made aware. Addendum: 11/11/18 at 1634 by Cheryl Hernandez SS Late entry for 11/08/18: Per Director Aisha, it is anticipated that patient will need snf placement for continuity of care.
[2018-11-08] MEDS ORDERED: VANCOMYCIN PER PHARMACY MC PRN (15:35)
[2018-11-08 16:00] VITALS: BP 150/82
--- NOTE | 2018-11-08 16:20 | NUR ---
PT IS WATCHING TV ON BED. DENIES OF PAIN. NO SIGNS OF DISTRESS NOTED.
[2018-11-08] MEDS: VANCOMYCIN 1,250 MG in DEXTROSE 5% 250 ML IV SCH (17:59)
--- NOTE | 2018-11-08 18:13 | NUR ---
PT IS SITTING ON BED AND EATING DINNER WITH ASSISTANCE FROM AIRPORT SHUTTLE DRIVER.
--- NOTE | 2018-11-08 19:15 | NUR ---
ENDORSED PATIENT AT BEDSIDE TO RADIO TOWER TECHNICIAN NURSE FOR CONTINUITY OF CARE. PT IS IN STABLE CONDITION.
--- NOTE | 2018-11-08 19:20 | NUR ---
RECEIVED ENDORSEMENT FROM AM SHIFT RN; PT IS AWAKE, A/Ox2, CONFUSED, UNABLE TO MAKE NEEDS KNOWN. NO SOB OR DISTRESS NOTED. PATIENT HAS AN IV LINE ON THE LEFT WRIST, 24 GAUGE, INTACT. PT IS ON CONTACT PRECAUTION FOR MDRO AND CLINICAL DOCUMENTATION MANAGER OF URINE, PROTOCOL INITIATED. CALL LIGHT WITHIN REACH, BED IN THE LOWEST POSITION. INITIAL ASSESSMENT DONE. WILL CONTINUE TO MONITOR.
--- NOTE | 2018-11-08 20:00 | NUR ---
DUE MEDS GIVEN, TOLERATED WELL.
[2018-11-08] MEDS: SIMVASTATIN 20 MG TAB PO SCH (20:28)
--- NOTE | 2018-11-08 22:05 | NUR ---
ROUNDS MADE, PATIENT WATCHING TV.
[2018-11-09] VITALS: BP 131/75
[2018-11-09] MEDS: PIPER/TAZO 3.375GM/D5W PREMIX 50 ML IV SCH ×2 (00:12→05:13)
--- NOTE | 2018-11-09 00:15 | NUR ---
VITALS TAKEN, PATIENT WAS CHANGED AT THIS TIME. LINENS AND CHUX CHANGED, REPOSITIONED, TOLERATED WELL.
--- NOTE | 2018-11-09 02:30 | NUR ---
PATIENT ASLEEP, EYES CLOSED, VISIBLE CHEST RISE AND FALL NOTED.
--- NOTE | 2018-11-09 05:00 | NUR ---
DUE MEDS GIVEN, NO SOB OR DISTRESS NOTED.
[2018-11-09] MEDS: LEVOTHYROXINE 0.05 MG TAB PO SCH (05:37)
[2018-11-09] MEDS: PANTOPRAZOLE 40 MG TABEC PO SCH (05:38)
[2018-11-09] MEDS: BLOOD GLUCOSE MONITORING 1 DEV DEV FS SCH ×4 (06:31→21:22)
--- NOTE | 2018-11-09 07:05 | NUR ---
ENDORSED PATIENT TO AM SHIFT RN; PATIENT IN STABLE CONDITION.
--- NOTE | 2018-11-09 07:06 | NUR ---
RECEIVED BEDSIDE REPORT FROM UNDERGROUND MINER NURSE. PT IS AWAKE, AOX1 TO NAME;CONFUSED. ABLE TO FOLLOW SIMPLE COMMANDS AND MAKE NEEDS KNOWN. DENIES PAIN. RESPIRATION IS EVEN AND UNLABORED. RA. NO SIGNS OF DISTRESS NOTED. PATIENT HAS AN IV LINE ON THE RIGHT WRIST, 22 GAUGE, INTACT AND PATENT, INFUSING PER MD ORDER. IV ON RFA 22G, NOT INFUSING AT THIS TIME. FALL PRECAUTION INITIATED, PT IS ON CONTACT PRECAUTION FOR MDRO AND CUSTOMER EXPERIENCE RETAIL CLERK OF URINE AND MRSA, PROTOCOL INITIATED. CALL LIGHT WITHIN REACH, BED IN THE LOWEST POSITION. DISCUSSED PLAN OF CARE FOR TODAY.
[2018-11-09 07:43] LABS: BASOPHILS % (AUTO) 0.6 % (0.0-2.0); EOSINOPHILS # (AUTO) 0.2 K/uL (0-0.4); EOSINOPHILS % (AUTO) 3.4 % (0.0-4.0); HEMATOCRIT 32.4 % (36-48); HEMOGLOBIN 10.8 g/dL (12.0-16.0); LYMPHOCYTES % (AUTO) 29.1 % (20.5-51.1); MEAN CORPUSCULAR HEMOGLOBIN 31 pg (27-31); MEAN CORPUSCULAR HGB CONC 33 g/dL (33-37); MEAN CORPUSCULAR VOLUME 93.2 fL (80-94); MONOCYTES # (AUTO) 0.8 K/uL (0.8-1.0); MONOCYTES % (AUTO) 11.7 % (1.7-9.3); NEUTROPHILS # (AUTO) 3.8 K/uL (1.8-7.7); NEUTROPHILS % (AUTO) 55.2 % (42.2-75.2); PLATELET COUNT (AUTO) 204 K/uL (140-450); RED BLOOD CELL COUNT(AUTO) 3.48 MIL/uL (4.20-5.40); RED CELL DISTRIBUTION WIDTH 14.1 % (11.6-13.7); WHITE BLOOD COUNT (AUTO) 6.9 K/uL (4.8-10.8)
[2018-11-09 08:00] VITALS: BP 160/82
--- NOTE | 2018-11-09 08:20 | NUR ---
PT IS SITTING UP ON BED AND DIGITAL MARKETING OFFICER IS FEEDING HER BREAKFAST. NO SIGNS OF DISTRESS NOTED.
[2018-11-09 08:21] LABS: ANION GAP 13.1 (8-16); CARBON DIOXIDE 25.5 mmol/L (21-32); CREATININE 0.8 mg/dL (0.6-1.3); POTASSIUM 3.6 mmol/L (3.5-5.1)
[2018-11-09] MEDS: LACTOBACILLUS RHAMNOSUS GG 1 EACH CAP PO SCH ×3 (08:37→17:44)
[2018-11-09] MEDS: carBAMazepine 200 MG TAB PO SCH ×2 (08:37→21:08)
[2018-11-09] MEDS: metFORMIN 500 MG TAB PO SCH ×2 (08:37→17:45)
[2018-11-09] MEDS: ASCORBIC ACID 500 MG TAB PO SCH ×2 (08:37→21:08)
[2018-11-09] MEDS: LISINOPRIL 20 MG TAB PO SCH ×2 (08:38→21:07)
[2018-11-09] MEDS: MULTIVITAMIN 1 TAB PO SCH (08:38)
[2018-11-09] MEDS: amLODIPine 5 MG TAB PO SCH (08:38)
[2018-11-09] MEDS: ASPIRIN 81 MG TAB.CHEW PO SCH (08:38)
[2018-11-09] MEDS: DIVALPROEX 500 MG TABEC PO SCH ×2 (08:39→21:07)
[2018-11-09] MEDS: POLYETHYLENE GLYCOL 17 GM/PKT PO SCH (08:39)
[2018-11-09] MEDS: FUROSEMIDE 40 MG TAB PO SCH ×2 (08:39→17:44)
[2018-11-09] MEDS: FOAM DRESSING TP SCH (08:42)
[2018-11-09] MEDS: KETOCONAZOLE 2% 15 GM TUBE TP SCH (08:42)
[2018-11-09] MEDS: NACL 0.9% 1,000 ML IV SCH ×2 (08:47→17:56)
[2018-11-09] MEDS: POTASSIUM CHLORIDE 8 MEQ TABER PO SCH (08:53)
[2018-11-09] MEDS: INSULIN NPH HUM/REG INSULIN HM 100 UNIT/ML 10 ML VIAL SUBQ SCH (08:55)
--- NOTE | 2018-11-09 09:02 | NUR ---
ADMINISTERED MEDS PER MD ORDER, PT TOLERATED WELL. SAFETY MEASURES IN PLACE.
[2018-11-09] MEDS: VANCOMYCIN 1,250 MG in DEXTROSE 5% 250 ML IV SCH (11:11)
--- NOTE | 2018-11-09 11:13 | NUR ---
ASSISTED TO CHANGE THE PT INTO CLEAN GOWN AND LINEN. REPOSITIONED PT TO HER LEFT SIDE AND USED PILLOWS TO OFF LOAD PRESSURE FROM BACK AND SACRAL, AND HEEL WEDGE TO OFF LOAD PRESSURE FROM HEEL. PT TOLERATED WELL.
[2018-11-09] MEDS: INSULIN LISPRO SLIDING SCALE 100 UNITS/ML VIAL SUBQ PRN ×3 (11:53→21:22)
--- NOTE | 2018-11-09 12:57 | NUR ---
PT IS SITTING ON BED AND PIPE FITTER SOFT COPPER IS ASSISTING PT TO EAT LUNCH. NO SIGNS OF DISTRESS NOTED.
[2018-11-09] MEDS: THERAHONEY GEL 42.5 GM TP SCH (12:58)
--- NOTE | 2018-11-09 15:10 | NUR ---
PT IS SLEEPING AT THIS TIME. NO SIGNS OF DISTRESS NOTED. IV IS INFUSING PER MD ORDER.
--- NOTE | 2018-11-09 15:41 | NUR ---
11/09/18 RD FOLLOW UP COMPLETED PLEASE REFER TO NUTRITION PROGRESS NOTE UNDER CARE ACTIVITY FOR ESTIMATED NUTRITION NEEDS. RD RECOMMENDATIONS: 1. RECOMMEND CONTINUE WITH CARDIAC DIET. 2. RD WILL F/U 7 DAYS; LOW RISK. TRUE HAILE RD
[2018-11-09 16:00] VITALS: BP 131/79
--- NOTE | 2018-11-09 18:10 | NUR ---
PT IS SITTING UP ON BED AND MARKETING COPYWRITER IS ASSISTING PT TO EAT DINNER. NO SIGNS OF DISTRESS NOTED.
--- NOTE | 2018-11-09 18:30 | NUR ---
RECEIVED A CALL BACK FROM DR SARMIENTO. PER , CONTINUE WITH HIS ORIGINAL PLAN AND CONTINUE ZOSYN. REBACK 'S ORDER AND CONFIRMED ORDER.
--- NOTE | 2018-11-09 19:10 | NUR ---
ENDORSED PATIENT AT BEDSIDE TO POST OFFICE MARKUP CLERK NURSE FOR CONTINUITY OF CARE. PT IS IN STABLE CONDITION.
--- NOTE | 2018-11-09 19:45 | NUR ---
RECEIVED BEDSIDE REPORT FROM DAY SHIFT NURSE FOR CONTINUITY OF CARE. PATIENT IS AWAKE AOX1 TO NAME RESPIRATION EVEN UNLABORED ON ROOM AIR. DENIES PAIN. SKIN IS WARM AND DRY. IV PATENT AND INTACT. PLAN OF CARE WAS DISCUSSED. ALL SAFETY MEASURES ARE IN PLACE. CONTACT PRECAUTION MAINTAINED. BED IS AT LOW POSITION. CALL LIGHT WITHIN REACH.
--- NOTE | 2018-11-09 20:45 | NUR ---
PATIENT AWAKE, RESPIRATION EVEN UNLABORED ON ROOM AIR. NO DISTRESS NOTED. INITIAL ASSESSMENT DONE. VITAL STABLE. ALL DUE MEDS WERE GIVEN PER ORDER. CALL LIGHT WITHIN REACH. BED IS AT LOW POSITION. WILL CONTINUE TO MONITOR
[2018-11-09] MEDS: SIMVASTATIN 20 MG TAB PO SCH (21:07)
[2018-11-09] MEDS: MEROPENEM 500 MG in NACL 0.9% 50 ML IV SCH (21:08)
[2018-11-09] MEDS ORDERED: MEROPENEM 500 MG VIAL IV ONE (21:10)
--- NOTE | 2018-11-09 23:00 | NUR ---
CHECKED PATIENT. PATIENT SLEEPING COMFORTABLY RESPIRATION EVEN UNLABORED ON ROOM AIR. NO DISTRESS NOTED. WILL CONTINUE TO MONITOR.
[2018-11-10] VITALS: BP 179/75
[2018-11-10] MEDS ORDERED: PIPER/TAZO 3.375GM/D5W PREMIX 50 ML IV SCH
--- NOTE | 2018-11-10 | NUR ---
PATIENT BP 172/63. RECHECKED 3OMINS LATER BP 179/75. CALLED DR. MELLO. NO ANSWER. WILL CONTINUE TO MONITOR
--- NOTE | 2018-11-10 00:30 | NUR ---
RECHECKED BP 179/66 CALLED AGAIN X2 NO RESPOND. WILL CONTINUE TO MONITOR.
--- NOTE | 2018-11-10 01:00 | NUR ---
CLEAN WOUND AND CHANGED DRESSING. PATIENT TOLERATED WELL. WILL CONTINUE TO MONITOR.
--- NOTE | 2018-11-10 03:32 | NUR ---
CHECKED PATIENT. PATIENT STABLE. NO DISTRESS NOTED. WILL CONTINUE TO MONITOR.
[2018-11-10] MEDS: NACL 0.9% 1,000 ML IV SCH ×3 (04:19→23:35)
[2018-11-10] MEDS: MEROPENEM 500 MG in NACL 0.9% 50 ML IV SCH ×3 (04:42→20:51)
[2018-11-10] MEDS ORDERED: MEROPENEM 500 MG VIAL IV ONE (04:47)
[2018-11-10 05:30] LABS: ANION GAP 12.7 (8-16); CARBON DIOXIDE 27.6 mmol/L (21-32); CREATININE 0.7 mg/dL (0.6-1.3); POTASSIUM 3.3 mmol/L (3.5-5.1)
--- NOTE | 2018-11-10 05:30 | NUR ---
RECHECKED PATIENT BP 163/[address] MELLO CALL BACK. PATIENT STABLE. NO DISTRESS NOTED.
[2018-11-10] MEDS: LEVOTHYROXINE 0.05 MG TAB PO SCH (05:35)
[2018-11-10] MEDS: PANTOPRAZOLE 40 MG TABEC PO SCH (05:35)
[2018-11-10] MEDS: VANCOMYCIN 1,250 MG in DEXTROSE 5% 250 ML IV SCH (06:02)
[2018-11-10] MEDS: BLOOD GLUCOSE MONITORING 1 DEV DEV FS SCH ×4 (06:07→20:50)
[2018-11-10 06:34] LABS: BASOPHILS % (AUTO) 0.6 % (0.0-2.0); EOSINOPHILS # (AUTO) 0.2 K/uL (0-0.4); EOSINOPHILS % (AUTO) 2.8 % (0.0-4.0); HEMATOCRIT 34.6 % (36-48); HEMOGLOBIN 11.5 g/dL (12.0-16.0); LYMPHOCYTES # (AUTO) 1.9 K/uL (2.5-16.5); LYMPHOCYTES % (AUTO) 29.4 % (20.5-51.1); MEAN CORPUSCULAR HEMOGLOBIN 31 pg (27-31); MEAN CORPUSCULAR HGB CONC 33 g/dL (33-37); MEAN CORPUSCULAR VOLUME 92.5 fL (80-94); MONOCYTES # (AUTO) 0.8 K/uL (0.8-1.0); MONOCYTES % (AUTO) 11.6 % (1.7-9.3); NEUTROPHILS # (AUTO) 3.6 K/uL (1.8-7.7); NEUTROPHILS % (AUTO) 55.6 % (42.2-75.2); PLATELET COUNT (AUTO) 217 K/uL (140-450); RED BLOOD CELL COUNT(AUTO) 3.74 MIL/uL (4.20-5.40); RED CELL DISTRIBUTION WIDTH 13.9 % (11.6-13.7); WHITE BLOOD COUNT (AUTO) 6.5 K/uL (4.8-10.8)
[2018-11-10] MEDS ORDERED: cloNIDine 0.1 MG TAB PO PRN (07:10)
--- NOTE | 2018-11-10 07:42 | NUR ---
ENDORSED PATIENT TO DAY SHIFT NURSE. PATIENT STABLE AT THIS TIME.
--- NOTE | 2018-11-10 07:43 | NUR ---
RECEIVED REPORT FROM CARGO SUPERVISOR RN AT BEDSIDE, PT IS AAOX1, CONFUSED, SELF TALKING, ABLE TO FOLLOW COMMANDS SOMETIMES, DENIES PAIN, VSS, NO S/S OF DISTRESS, CLEAR LUNG SOUNDS TIMUR, ON RA. DENIES CHEST PAIN, HYPERTENSION NOTED, NONPITTING EDEMA ON BOTH FEET NOTED, LARGE ROUND SOFT ABDOMEN WITH ACTIVE BOWEL SOUNDS, INCONTINENT b&B'S, SEVERE WEAKNESS TO BLE, SKIN IS WARM AND DRY TO TOUCH, OPEN WOUND TO LEFT HEEL, (SEE WOUND ASSESSMENT), IV SITE TO RIGHT FOREARM,22GA, RUNNING NS AT 100ML/HR. HOB ELEVATED TO 30 DEGREES, SAFETY MEASURES IN PLACE, POSITION FOR COMFORT, CALL LIGHT WITHIN REACH, WILL CONTINUE TO MONITOR.
[2018-11-10 08:00] VITALS: BP 168/64
[2018-11-10] MEDS: LACTOBACILLUS RHAMNOSUS GG 1 EACH CAP PO SCH ×3 (08:59→16:33)
[2018-11-10] MEDS: MULTIVITAMIN 1 TAB PO SCH (08:59)
[2018-11-10] MEDS: carBAMazepine 200 MG TAB PO SCH ×2 (09:00→20:50)
[2018-11-10] MEDS: ASPIRIN 81 MG TAB.CHEW PO SCH (09:00)
[2018-11-10] MEDS: metFORMIN 500 MG TAB PO SCH ×2 (09:00→16:33)
--- NOTE | 2018-11-10 09:00 | NUR ---
SCHEDULED MEDICATION GIVEN, PT IS ABLE TO SWALLOW PILLS WHOLE, NO SIDE EFFECTS NOTED.
[2018-11-10] MEDS: DIVALPROEX 500 MG TABEC PO SCH ×2 (09:03→20:49)
[2018-11-10] MEDS: ASCORBIC ACID 500 MG TAB PO SCH ×2 (09:03→20:50)
[2018-11-10] MEDS: FUROSEMIDE 40 MG TAB PO SCH ×2 (09:03→16:34)
[2018-11-10] MEDS: POTASSIUM CHLORIDE 8 MEQ TABER PO SCH (09:04)
[2018-11-10] MEDS: LISINOPRIL 20 MG TAB PO SCH ×2 (09:04→20:50)
[2018-11-10] MEDS: POLYETHYLENE GLYCOL 17 GM/PKT PO SCH (09:06)
[2018-11-10] MEDS: amLODIPine 5 MG TAB PO SCH (09:06)
[2018-11-10] MEDS: KETOCONAZOLE 2% 15 GM TUBE TP SCH (09:07)
[2018-11-10] MEDS: INSULIN NPH HUM/REG INSULIN HM 100 UNIT/ML 10 ML VIAL SUBQ SCH (09:10)
--- NOTE | 2018-11-10 12:00 | NUR ---
PT IS RESTING IN BED, NO S/S OF DISTRESS, DENIES PAIN, POSITION CHANGED WITH HEAVY EQUIPMENT PLUMBING SUPERVISOR.
[2018-11-10] MEDS: INSULIN LISPRO SLIDING SCALE 100 UNITS/ML VIAL SUBQ PRN ×3 (12:07→20:53)
[2018-11-10] MEDS: THERAHONEY GEL 42.5 GM TP SCH (12:08)
--- NOTE | 2018-11-10 13:00 | NUR ---
WOUND CARE PROVIDED TO BIL. CHOPRA. PT TOLERATED WELL.
[2018-11-10 16:00] VITALS: BP 136/85
--- NOTE | 2018-11-10 16:00 | NUR ---
NO CHANGE OF CONDITION, PT IS RESTING IN BED, NO S/S OF DISTRESS, VSS, DENIES PAIN, POSITION CHANGE FOR OFF LOAD PRESSURE.
[2018-11-10] MEDS: VANCOMYCIN 1GM/DEXT 5% PREMIX 200 ML IV SCH (17:30)
--- NOTE | 2018-11-10 19:15 | NUR ---
REPORT GIVEN TO AUTOMATION TECHNICIAN NURSE AT BEDSIDE FOR CONTINUE OF CARE.
--- NOTE | 2018-11-10 19:16 | NUR ---
RECEIVED REPORT FROM DAY SHIFT NURSE BAUTISTA-RN AT BEDSIDE. PT RESTING IN BED, AOX1-CONFUSED, ON BEDREST, UNABLE TO AMBULATE, INCONTINENT OF URINE AND STOOL, WITH BILATERAL HEEL WOUNDS (LEFT OPEN, RIGHT REDNESS). RIGHT FA #22G RUNNING NS @ 100ML/HR. PT UNABLE TO VERBALIZED UNDERSTANDING THE PLAN OF CARE. BED IN LOWEST POSITION, BED BREAKS ON, BOTH SIDE RAILS UP AND FALL PRECAUTIONS ARE IN PLACE. BEDSIDE TABLE AND CALL LIGHT ARE WITHIN REACH. WILL CONTINUE TO MONITOR.
[2018-11-10 20:00] VITALS: BP 145/84
--- NOTE | 2018-11-10 20:00 | NUR ---
VITAL SIGNS TAKEN AND TOLERATED WELL. BLOOD GLUCOSE 213- WILL ADMINISTER INSULIN COVERAGE. NO S/S OF RESPIRATORY DISTRESS OR DISCOMFORT NOTED AT THIS TIME. WILL CONTINUE TO MONITOR.
[2018-11-10] MEDS: SIMVASTATIN 20 MG TAB PO SCH (20:50)
--- NOTE | 2018-11-10 20:53 | NUR ---
SCHEDULED MEDICATION AND INSULIN COVERAGE GIVEN. PT TOLERATED WELL. NO S/S OF RESPIRATORY DISTRESS OR DISCOMFORT NOTED AT THIS TIME. WILL CONTINUE TO MONITOR.
--- NOTE | 2018-11-10 22:00 | NUR ---
PT RESTING IN BED. NO S/S OF RESPIRATORY DISTRESS OR DISCOMFORT NOTED AT THIS TIME. WILL CONTINUE TO MONITOR.
[2018-11-11] VITALS: BP 91/59
--- NOTE | 2018-11-11 | NUR ---
VITAL SIGNS TAKEN AND TOLERATED WELL. NO S/S OF RESPIRATORY DISTRESS OR DISCOMFORT NOTED AT THIS TIME. WILL CONTINUE TO MONITOR.
--- NOTE | 2018-11-11 02:00 | NUR ---
PT CONTINUES TO SLEEP IN BED. NO S/S OF RESPIRATORY DISTRESS OR DISCOMFORT NOTED AT THIS TIME. WILL CONTINUE TO MONITOR.
--- NOTE | 2018-11-11 04:00 | NUR ---
PT RESTING IN BED. NO S/S OF RESPIRATORY DISTRESS OR DISCOMFORT NOTED AT THIS TIME. WILL CONTINUE TO MONITOR.
[2018-11-11] MEDS: MEROPENEM 500 MG in NACL 0.9% 50 ML IV SCH ×3 (04:33→20:59)
--- NOTE | 2018-11-11 04:33 | NUR ---
SCHEDULED MEDICATION MERREM GIVEN AND TOLERATED WELL. EDYTA NORIEGA AND JASON ASSISTING PT WITH PERINEAL CARE. NO S/S OF RESPIRATORY DISTRESS OR DISCOMFORT NOTED AT THIS TIME. WILL CONTINUE TO MONITOR.
[2018-11-11] MEDS: NACL 0.9% 1,000 ML IV SCH ×2 (04:38→20:19)
[2018-11-11] MEDS: LEVOTHYROXINE 0.05 MG TAB PO SCH (05:38)
[2018-11-11] MEDS: PANTOPRAZOLE 40 MG TABEC PO SCH (05:38)
[2018-11-11] MEDS: VANCOMYCIN 1GM/DEXT 5% PREMIX 200 ML IV SCH ×2 (05:38→18:31)
[2018-11-11] MEDS: BLOOD GLUCOSE MONITORING 1 DEV DEV FS SCH ×4 (05:39→21:29)
[2018-11-11] MEDS: INSULIN LISPRO SLIDING SCALE 100 UNITS/ML VIAL SUBQ PRN ×3 (05:42→21:29)
--- NOTE | 2018-11-11 05:42 | NUR ---
SCHEDULED MEDICATION GIVEN. BLOOD GLUCOSE 153- INSULIN COVERAGE GIVEN AND TOLERATED WELL. NO S/S OF RESPIRATORY DISTRESS OR DISCOMFORT NOTED AT THIS TIME. WILL CONTINUE TO MONITOR.
[2018-11-11] MEDS ORDERED: VANCOMYCIN 1,250 MG in DEXTROSE 5% 250 ML IV SCH (07:00)
--- NOTE | 2018-11-11 07:14 | NUR ---
ENDORSED PT CARE TO DAY SHIFT NURSE KRISTIN FOR CONTINUITY OF CARE.
--- NOTE | 2018-11-11 07:25 | NUR ---
RECEIVED PT REPORT FROM ICEBOX MAN NURSE AT BEDSIDE. PT IS AWAKE AND TALKING, BUT SPEECH IS INCOMPREHENSIBLE. PT IS IN NO ACUTE DISTRESS, NO SOB NOTED. IV SITE NOTED IN RFA, 22 G, INFUSING NS 100 ML/HR. SKIN INTACT ASIDE FROM THE PRESSURE ULCERS ON BIALTERAL HEELS, L HEEL IS COVERED BY DRY DRESSING. SEIZURE AND FALL PRECAUTIONS IN PLACE. CONTACT ISOLATION IN PLACE. CALL LIGHT WITHIN REACH. WILL CONTINUE TO MONITOR.
[2018-11-11 07:57] LABS: BASOPHILS # (AUTO) 0.1 K/uL (0.00-0.22); BASOPHILS % (AUTO) 0.7 % (0.0-2.0); EOSINOPHILS # (AUTO) 0.2 K/uL (0-0.4); EOSINOPHILS % (AUTO) 2.4 % (0.0-4.0); HEMATOCRIT 34.1 % (36-48); HEMOGLOBIN 11.3 g/dL (12.0-16.0); LYMPHOCYTES # (AUTO) 1.9 K/uL (2.5-16.5); LYMPHOCYTES % (AUTO) 24.7 % (20.5-51.1); MEAN CORPUSCULAR HEMOGLOBIN 31 pg (27-31); MEAN CORPUSCULAR HGB CONC 33 g/dL (33-37); MEAN CORPUSCULAR VOLUME 93.8 fL (80-94); MONOCYTES # (AUTO) 0.9 K/uL (0.8-1.0); MONOCYTES % (AUTO) 10.8 % (1.7-9.3); NEUTROPHILS # (AUTO) 4.9 K/uL (1.8-7.7); NEUTROPHILS % (AUTO) 61.4 % (42.2-75.2); PLATELET COUNT (AUTO) 213 K/uL (140-450); RED BLOOD CELL COUNT(AUTO) 3.63 MIL/uL (4.20-5.40); RED CELL DISTRIBUTION WIDTH 14.3 % (11.6-13.7); WHITE BLOOD COUNT (AUTO) 7.9 K/uL (4.8-10.8)
[2018-11-11 08:00] VITALS: BP 151/74
[2018-11-11 08:51] LABS: ALBUMIN 2.5 g/dL (3.4-5.0); ANION GAP 12.2 (8-16); CARBON DIOXIDE 26.3 mmol/L (21-32); CREATININE 0.8 mg/dL (0.6-1.3); POTASSIUM 3.5 mmol/L (3.5-5.1); TOTAL BILIRUBIN 0.2 mg/dL (0.0-1.0)
[2018-11-11] MEDS ORDERED: THIAMINE 100 MG TAB PO SCH (09:00)
--- NOTE | 2018-11-11 09:10 | NUR ---
Biology Professor Note: I faxed final cultures to [facility].
[2018-11-11] MEDS: metFORMIN 500 MG TAB PO SCH ×2 (09:20→18:32)
[2018-11-11] MEDS: POLYETHYLENE GLYCOL 17 GM/PKT PO SCH (09:20)
[2018-11-11] MEDS: LISINOPRIL 20 MG TAB PO SCH ×2 (09:22→21:30)
[2018-11-11] MEDS: amLODIPine 5 MG TAB PO SCH (09:22)
[2018-11-11] MEDS: ASPIRIN 81 MG TAB.CHEW PO SCH (09:22)
[2018-11-11] MEDS: ASCORBIC ACID 500 MG TAB PO SCH ×2 (09:22→20:57)
[2018-11-11] MEDS: FUROSEMIDE 40 MG TAB PO SCH ×2 (09:22→18:32)
[2018-11-11] MEDS: MULTIVITAMIN 1 TAB PO SCH (09:23)
[2018-11-11] MEDS: DIVALPROEX 500 MG TABEC PO SCH ×2 (09:23→20:58)
[2018-11-11] MEDS: carBAMazepine 200 MG TAB PO SCH ×2 (09:23→20:58)
[2018-11-11] MEDS: LACTOBACILLUS RHAMNOSUS GG 1 EACH CAP PO SCH ×3 (09:23→18:31)
[2018-11-11] MEDS: POTASSIUM CHLORIDE 8 MEQ TABER PO SCH (09:23)
[2018-11-11] MEDS: INSULIN NPH HUM/REG INSULIN HM 100 UNIT/ML 10 ML VIAL SUBQ SCH (09:24)
--- NOTE | 2018-11-11 11:27 | NUR ---
PICC LINE INSERTED INTO LUE, BY PICC LINE NURSE AUGUSTA. TIMEOUT FORM WAS COMPLETED. PT TOLERATED WELL. PT IS GOING TO HAVE XRAY FOR PLACEMENT CONFIRMATION.
--- NOTE | 2018-11-11 11:43 | NUR ---
PT SEEN BY DR AIKEN
[2018-11-11] MEDS: THERAHONEY GEL 42.5 GM TP SCH (15:30)
[2018-11-11 16:00] VITALS: BP 133/51
--- NOTE | 2018-11-11 16:19 | NUR ---
PT COMFORTABLY RESTING IN BED, NO S/S OF ACUTE DISTRESS NOTED. CALL LIGHT IS WITHIN REACH. WILL CONTINUE TO MONITOR PT.
--- NOTE | 2018-11-11 19:28 | NUR ---
PT ENDORSED TO UNIVERSITY SERVICES PROGRAM ASSOCIATE IN STABLE CONDITION
--- NOTE | 2018-11-11 19:29 | NUR ---
RECEIVED PT REPORT FROM AM NURSE AT BEDSIDE. PT IS AWAKE, SPEECH IS INCOMPREHENSIBLE. PT IS MS. PT MENTALLY DELAYED. PT IS IN NO ACUTE DISTRESS, NO SOB NOTED. IV SITE NOTED IN RFA, 22 G, INFUSING VANCO AT THIS TIME. WITH R AC AC IV NOT WORKING, SALINE LOCK PT PER PREVIOUS NURSE TRY TO TAKE IT OFF BUT PT REFUSED TO LET THEM. WILL TRY AGAIN LATER. WITH PICC LINE ON L UPPER ARM, FOR MCC VANCO. WITH PRESSURE ULCERS ON BILATERAL HEELS, L HEEL IS COVERED BY DRY DRESSING, RIGHT HEEL WITH BILATERAL BOOTS ON. SEIZURE AND FALL PRECAUTIONS IN PLACE. CONTACT ISOLATION IN PLACE. CALL LIGHT WITHIN REACH. WILL CONTINUE TO MONITOR.
--- NOTE | 2018-11-11 20:00 | NUR ---
PT CHANGED DRESSING ON BILATERAL HEELS. W/ SEROSANGUIOUS NOTED
--- NOTE | 2018-11-11 20:56 | NUR ---
[employer] TECH HERE. WILL AWAIT FOR RESULTS
[2018-11-11] MEDS: SIMVASTATIN 20 MG TAB PO SCH (20:57)
--- NOTE | 2018-11-11 21:30 | NUR ---
DR. SARMIENTO VISITED PT. SAID TO D/C ALL IV ON THE LEFT SUDE. AND TO USE THE PICC LINE
[2018-11-12] VITALS: BP 138/68
--- NOTE | 2018-11-12 00:13 | NUR ---
PT CHECKED PT IS ON HER SIDE ABLE TO TURN SELF. SLEEPING. TAKEN VS/
--- NOTE | 2018-11-12 05:40 | NUR ---
VANCO TROUGH RESULT PER LAB IS 20.4. HIGH. INFORMED PHARMACY AFTER OFFC HRS, SHE SAID TO HOLD VANCO. TO INFORM PHARMACY IN HOUSE IN THE AM
[2018-11-12] MEDS: MEROPENEM 500 MG in NACL 0.9% 50 ML IV SCH ×3 (05:58→21:55)
[2018-11-12] MEDS: BLOOD GLUCOSE MONITORING 1 DEV DEV FS SCH ×4 (05:59→21:53)
[2018-11-12] MEDS: NACL 0.9% 1,000 ML IV SCH ×3 (05:59→17:54)
[2018-11-12] MEDS: VANCOMYCIN 1GM/DEXT 5% PREMIX 200 ML IV SCH (06:00)
[2018-11-12] MEDS: INSULIN LISPRO SLIDING SCALE 100 UNITS/ML VIAL SUBQ PRN ×3 (06:01→22:10)
[2018-11-12] MEDS: PANTOPRAZOLE 40 MG TABEC PO SCH (06:07)
[2018-11-12] MEDS: LEVOTHYROXINE 0.05 MG TAB PO SCH (06:07)
[2018-11-12 06:41] LABS: CARBON DIOXIDE 28.7 mmol/L (21-32); CREATININE 0.7 mg/dL (0.6-1.3); POTASSIUM 3.7 mmol/L (3.5-5.1)
[2018-11-12 06:44] LABS: BASOPHILS % (AUTO) 0.7 % (0.0-2.0); EOSINOPHILS # (AUTO) 0.2 K/uL (0-0.4); EOSINOPHILS % (AUTO) 2.8 % (0.0-4.0); LYMPHOCYTES # (AUTO) 2.3 K/uL (2.5-16.5); LYMPHOCYTES % (AUTO) 33.2 % (20.5-51.1); MEAN CORPUSCULAR HEMOGLOBIN 31 pg (27-31); MEAN CORPUSCULAR HGB CONC 33 g/dL (33-37); MEAN CORPUSCULAR VOLUME 93.6 fL (80-94); MONOCYTES # (AUTO) 0.7 K/uL (0.8-1.0); MONOCYTES % (AUTO) 10.3 % (1.7-9.3); NEUTROPHILS # (AUTO) 3.7 K/uL (1.8-7.7); PLATELET COUNT (AUTO) 224 K/uL (140-450); RED BLOOD CELL COUNT(AUTO) 3.53 MIL/uL (4.20-5.40); RED CELL DISTRIBUTION WIDTH 14.3 % (11.6-13.7)
--- NOTE | 2018-11-12 06:59 | NUR ---
WILL ENDORSE TO NEXT SHIFT FOR CONTINUITY OF CARE. WILL ENDORSE TO NEXT SHIFT VANCO TROUGH WAS HIGH AND TO INFORM PHARMACY THAT VANCOMYCIN DOSE WAS NOT GIVEN.
--- NOTE | 2018-11-12 07:25 | NUR ---
RECEIVED REPORT FROM COMBER FIXER NURSE. PATIENT LYING DOWN IN BED WATCHING TV. NO DISTRESS NOTED. DENIES ANY PAIN. RESPIRATIONS EVEN, UNLABORED ON ROOM AIR. LUNGS CTA ON ALL LOBES. AAOX1, CALM, COOPERATIVE, SKIN COLOR APPROPRIATE TO ETHNICITY, WARM TO TOUCH. B/L HEELS ULCERS NOTED, DRESSING IS DRY AND INTACT. LEFT UPPER ARM PICC LINE NOTED, INFUSING IVF PER MD ORDERS. ABDOMEN SOFT. REVIEWED PLAN OF CARE WITH PATIENT. PATIENT VERBALIZED UNDERSTANDING. SAFETY MEASURES IN PLACE, CALL LIGHT WITHIN REACH. WILL CONTINUE TO MONITOR.
[2018-11-12 08:00] VITALS: BP 138/97
[2018-11-12] MEDS: LISINOPRIL 20 MG TAB PO SCH ×2 (09:53→22:00)
[2018-11-12] MEDS: LACTOBACILLUS RHAMNOSUS GG 1 EACH CAP PO SCH ×3 (09:53→17:53)
[2018-11-12] MEDS: ASCORBIC ACID 500 MG TAB PO SCH ×2 (09:53→22:00)
[2018-11-12] MEDS: POLYETHYLENE GLYCOL 17 GM/PKT PO SCH (09:53)
[2018-11-12] MEDS: MULTIVITAMIN 1 TAB PO SCH (09:54)
[2018-11-12] MEDS: FUROSEMIDE 40 MG TAB PO SCH ×2 (09:54→17:53)
[2018-11-12] MEDS: DIVALPROEX 500 MG TABEC PO SCH ×2 (09:54→21:59)
[2018-11-12] MEDS: carBAMazepine 200 MG TAB PO SCH ×2 (09:54→22:00)
[2018-11-12] MEDS: ASPIRIN 81 MG TAB.CHEW PO SCH (09:55)
[2018-11-12] MEDS: metFORMIN 500 MG TAB PO SCH ×2 (09:55→17:53)
[2018-11-12] MEDS: FOAM DRESSING TP SCH (09:55)
[2018-11-12] MEDS: amLODIPine 5 MG TAB PO SCH (09:55)
[2018-11-12] MEDS: INSULIN NPH HUM/REG INSULIN HM 100 UNIT/ML 10 ML VIAL SUBQ SCH (10:08)
[2018-11-12] MEDS: POTASSIUM CHLORIDE 8 MEQ TABER PO SCH (10:36)
--- NOTE | 2018-11-12 10:36 | NUR ---
ASSISTED CURATOR NATURAL HISTORY MUSEUM IN CLEANING AND REPOSITIONING PATIENT. SCHEDULED MEDICATIONS DUE GIVEN. WILL CONTINUE TO MONITOR.
[2018-11-12] MEDS: VANCOMYCIN 1,250 MG in DEXTROSE 5% 250 ML IV SCH (12:54)
--- NOTE | 2018-11-12 12:59 | NUR ---
PATIENT SITTING IN BED WITH LUNCH TRAY IN FRONT. NO DISTRESS NOTED. DENIES ANY PAIN. SCHEDULED MEDICATIONS DUE GIVEN. WILL CONTINUE TO MONITOR.
[2018-11-12] MEDS: THERAHONEY GEL 42.5 GM TP SCH (13:01)
--- NOTE | 2018-11-12 14:43 | NUR ---
Auto Carrier Driver Note: Detention Facility placement follow up: Per Greg from [facility] , they do not have any female beds available at this time. Per Nicole from [facility] , the type of services patient will need will be too costly, unable to accept patient. Per Tho from [facility] , the type of services patient will need will be too costly, unable to accept patient. Pending response from Esha at [facility] .
[2018-11-12 16:00] VITALS: BP 143/53
--- NOTE | 2018-11-12 16:30 | NUR ---
PATIENT LYING DOWN IN BED SLEEPING, AROUSABLE BY VOICE. CONDITION UNCHANGED. WILL CONTINUE TO MONITOR.
--- NOTE | 2018-11-12 19:36 | NUR ---
GAVE REPORT TO TECH ED/WOODSHOP TEACHER NURSE FOR CONTINUITY OF CARE. PATIENT IN STABLE CONDITION.
--- NOTE | 2018-11-12 19:36 | NUR ---
RECEIVED REPORT FROM VITO LEAL DAYSHIFT NURSE AT BEDSIDE FOR CONTINUITY OF CARE, PT IN STABLE CONDITION.
--- NOTE | 2018-11-12 20:00 | NUR ---
PT IN BED ALL FALLS AND SEIZURE PRECAUTIONS IN PLACE. PT AOX1 SHE CAN FOLLOWS COMMANDS, HOWEVER PT KEEPS COMPLAINING OF ROOMMATE THAT HAS PULLED ON HER FOOT WHEN PT DOESN'T HAVE ROOMMATE. PT IN BED WATCHING TV NO S/S OF PAIN OR DISTRESS NOTED. V/S FOLLOWS T 97.8 P 81 R 18 B/P 149/50 02 91 ON ROOM AIR,. PT HAS NO S/S OF PAIN OR DISTRESS NOTED. RESPIRATIONS EVEN AND UNLABORED ON ROOM AIR. BOWEL SOUNDS ACTIVE. CALL RIOS IN EACH.
--- NOTE | 2018-11-12 21:00 | NUR ---
PT GIVEN ALL DUE MEDS , MERREM IV RUNNING PIGGY BACK ORDERED. PICC LINE INTACT AND FLUSHED PATENT. PT GIVEN ORAL MEDS OF DEPAKOTE, TEGRETOL VITAMIN C ZESTRIL AND ZOCOR. PT F/S WAS 155, GIVEN 2 UNITS HUMALOG COVERAGE.
[2018-11-12] MEDS: SIMVASTATIN 20 MG TAB PO SCH (22:00)
[2018-11-13] VITALS: BP 126/68
--- NOTE | 2018-11-13 | NUR ---
PT IN BED NO /S OF PAIN OR DISTRESS NOTED. PT IS ON WOUND BED WITH ALL FALLS AND SEIZURE PRECAUTIONS IN PLACE. PT HAS HEEL PROTECTORS ON. PT WAS TURNED, CHANGED AND REPOSITIONED. V/S FOLLOWS T 97.2 P 78 R 18 B/P 133/91 02 95% ON ROOM AIR. NO S/S OF PAIN OR DISTRESS NOTED.
[2018-11-13] MEDS: NACL 0.9% 1,000 ML IV SCH ×2 (02:19→08:56)
--- NOTE | 2018-11-13 04:00 | NUR ---
PT TURNED CHANGED AND REPOSITIONED.
--- NOTE | 2018-11-13 05:00 | NUR ---
GIVEN IV MERREM
--- NOTE | 2018-11-13 06:00 | NUR ---
GIVEN VANCOMYCIN IV AND SCHEDULE ED MEDS. F/S IS 157 GIVEN 2 UNITS OF COVERAGE.
[2018-11-13] MEDS: MEROPENEM 500 MG in NACL 0.9% 50 ML IV SCH (06:19)
[2018-11-13] MEDS: VANCOMYCIN 1,250 MG in DEXTROSE 5% 250 ML IV SCH (06:56)
[2018-11-13] MEDS: PANTOPRAZOLE 40 MG TABEC PO SCH (06:57)
[2018-11-13] MEDS: LEVOTHYROXINE 0.05 MG TAB PO SCH (06:57)
[2018-11-13] MEDS: BLOOD GLUCOSE MONITORING 1 DEV DEV FS SCH ×2 (07:03→11:30)
[2018-11-13] MEDS: INSULIN LISPRO SLIDING SCALE 100 UNITS/ML VIAL SUBQ PRN (07:05)
--- NOTE | 2018-11-13 07:25 | NUR ---
REPORT GIVEN TO GEORGE RN DAYSHIFT NURSE AT BEDSIDE FOR CONTINUITY OF CARE, PT IN STABLE CONDITION.
--- NOTE | 2018-11-13 07:26 | NUR ---
RECEIVED BEDSIDE REPORT FROM AUCTIONEER TOBACCO NURSE. PATIENT IS AWAKE, ALERT AND ORIENTEDX1. VERBALLY GARBLED, HARD TO UNDERSTAND. HX MENTAL DELAY AND CVA. FALL RISK PROTOCOL PATIENT HAS WEAKNESS. WOUND BED IN PLACE. WOUNDS TIMUR HEELS. HEEL RAISERS AVAILABLE. INCONTINENT DERMATITIS. DANNI DOUBLE LUMEN PICC LINE INFUSING VANCO AT 125 CLEAN, DRY AND INTACT. CONTACT PRECAUTIONS IN PLACE. SEIZURE PRECAUTIONS. BED IN LOW POSITION. CALL LIGHT WITHIN REACH. WILL CONTINUE TO MONITOR THE PATIENT.
[2018-11-13 07:31] LABS: ANION GAP 11.6 (8-16); CARBON DIOXIDE 27.9 mmol/L (21-32); CREATININE 0.6 mg/dL (0.6-1.3); POTASSIUM 3.5 mmol/L (3.5-5.1)
[2018-11-13 08:00] VITALS: BP 136/81
[2018-11-13] MEDS: metFORMIN 500 MG TAB PO SCH (08:46)
[2018-11-13] MEDS: ASPIRIN 81 MG TAB.CHEW PO SCH (08:48)
[2018-11-13] MEDS: DIVALPROEX 500 MG TABEC PO SCH (08:49)
[2018-11-13] MEDS: LACTOBACILLUS RHAMNOSUS GG 1 EACH CAP PO SCH (08:50)
[2018-11-13] MEDS: FUROSEMIDE 40 MG TAB PO SCH (08:50)
[2018-11-13] MEDS: LISINOPRIL 20 MG TAB PO SCH (08:51)
[2018-11-13] MEDS: carBAMazepine 200 MG TAB PO SCH (08:51)
[2018-11-13] MEDS: ASCORBIC ACID 500 MG TAB PO SCH (08:52)
[2018-11-13] MEDS: amLODIPine 5 MG TAB PO SCH (08:52)
[2018-11-13] MEDS: MULTIVITAMIN 1 TAB PO SCH (08:52)
[2018-11-13] MEDS: POLYETHYLENE GLYCOL 17 GM/PKT PO SCH (08:53)
[2018-11-13] MEDS: POTASSIUM CHLORIDE 8 MEQ TABER PO SCH (08:53)
[2018-11-13] MEDS: INSULIN NPH HUM/REG INSULIN HM 100 UNIT/ML 10 ML VIAL SUBQ SCH (09:12)
--- NOTE | 2018-11-13 09:14 | NUR ---
ADMINISTERED MEDS. PATIENT TOLERATED WELL. WILL CONTINUE TO MONITOR
--- NOTE | 2018-11-13 10:03 | NUR ---
Spoke with Greg from [facility] still no female bed available at this time.
--- NOTE | 2018-11-13 10:15 | NUR ---
Spoke with Esha from [facility] pt is going to room 17 D.
--- NOTE | 2018-11-13 10:29 | NUR ---
Transportation arranged with pt will be picked up from room 121 B and transported to [facility] room 17 D at 1300. Address: [address] [place] [address]. [phone], phone # . Informed Mehrdad RN and Dorothea RN for pt schedule for brain picker. Pt unable to pay the transportation bill. Joselitoier will bill [facility].
--- NOTE | 2018-11-13 10:44 | NUR ---
Bagman/Woman Note: I called and spoke with case management director Komal Cleveland at [facility] . I informed Komal patient will be transfer to [facility] today for abx ivs. She verbalized understanding.
--- NOTE | 2018-11-13 10:46 | NUR ---
Called Maria M Morrow from [facility] left a message for her to call me back.
--- NOTE | 2018-11-13 11:30 | NUR ---
PATIENT REFUSED INSULIN AT THIS TIME.
[2018-11-13] MEDS ORDERED: MER500I IV (12:08)
[2018-11-13] MEDS ORDERED: VANC1.2524 IV (12:09)
--- NOTE | 2018-11-13 13:00 | NUR ---
CALLED JOSE CAREGIVER. JOSE DID NOT ANSWER. LEFT HER A MESSAGE WITH MY CALL BACK NUMBER FOR DISCHARGE.
--- NOTE | 2018-11-13 13:40 | NUR ---
I GAVE TELEPHONE REPORT TO PETAR, NURSE FROM [facility]. GAVE HIM MY CALL BACK NUMBER. TRANSPORT HERE TO EQUIPMENT SERVICE TECHNICIAN PATIENT. EDUCATED PATIENT ON DISEASE PROCESS, ABN S/SX, WHEN TO GO TO THE ER, EDUCATED ON CONTINUED ANTIBIOTICS, EDUCATED ON DISCHARGE TO SNF, EDUCATED ON WOUND CARE, PATIENT HAS PNA AND FLU VACCINE. PATIENT UNABLE TO VERBALIZE UNDERSTANDING. PATIENT LEFT [facility] IN STABLE CONDITION
== END 2018-11-13 13:40 | DRG 720 ==
LOC: MED 10:42 → MTU 16:49
PROVIDERS: ADMIT Preventive Medicine Preventive Medicine/Occupational Environmental Medicine; ATTEND Preventive Medicine Preventive Medicine/Occupational Environmental Medicine
PROC: 3E0234Z Introduction of Serum, Toxoid and Vaccine into Muscle, Percutaneous Approach (ICD-10-PCS; 2018-11-05)
PROC: 02HV33Z Insertion of Infusion Device into Superior Vena Cava, Percutaneous Approach (ICD-10-PCS; principal; 2018-11-11)
PROC: B548ZZA Ultrasonography of Superior Vena Cava, Guidance (ICD-10-PCS; 2018-11-11)
DX: A41.9 Sepsis, unspecified organism (principal); E44.0 Moderate protein-calorie malnutrition; J18.1 Lobar pneumonia, unspecified organism; E11.51 Type 2 diabetes mellitus with diabetic peripheral angiopathy without gangrene; M86.171 Other acute osteomyelitis, right ankle and foot; E11.21 Type 2 diabetes mellitus with diabetic nephropathy; E11.621 Type 2 diabetes mellitus with foot ulcer; L03.116 Cellulitis of left lower limb; D64.9 Anemia, unspecified; E03.9 Hypothyroidism, unspecified; E78.5 Hyperlipidemia, unspecified; E11.65 Type 2 diabetes mellitus with hyperglycemia; G40.909 Epilepsy, unspecified, not intractable, without status epilepticus; I12.9 Hypertensive chronic kidney disease with stage 1 through stage 4 chronic kidney disease, or unspecified chronic kidney disease; K21.9 Gastro-esophageal reflux disease without esophagitis; I69.351 Hemiplegia and hemiparesis following cerebral infarction affecting right dominant side; Z68.32 Body mass index [BMI] 32.0-32.9, adult; E87.1 Hypo-osmolality and hyponatremia; E87.6 Hypokalemia; B96.4 Proteus (mirabilis) (morganii) as the cause of diseases classified elsewhere; L89.629 Pressure ulcer of left heel, unspecified stage; E11.69 Type 2 diabetes mellitus with other specified complication; F79 Unspecified intellectual disabilities; M85.80 Other specified disorders of bone density and structure, unspecified site; N18.9 Chronic kidney disease, unspecified; Z16.24 Resistance to multiple antibiotics; E86.0 Dehydration; E87.8 Other disorders of electrolyte and fluid balance, not elsewhere classified; L97.419 Non-pressure chronic ulcer of right heel and midfoot with unspecified severity; B95.62 Methicillin resistant Staphylococcus aureus infection as the cause of diseases classified elsewhere; Z99.3 Dependence on wheelchair; Z23 Encounter for immunization; Z79.82 Long term (current) use of aspirin; Z79.4 Long term (current) use of insulin; Z79.84 Long term (current) use of oral hypoglycemic drugs; Z79.899 Other long term (current) drug therapy; M86.9 Osteomyelitis, unspecified
CPT/HCPCS: 36415; 71045; 73650; 78315; 80048; 80053; 80202; 82948; 83605; 83735; 84100; 84484; 85025; 85610; 85651; 85730; 86140; 87040; 87070; 87075; 87081; 87186; 87205; 90732; 93005; 93925; 94640; 99285; C1751; J1815; J2185; J2543; J3370; J7030; J7060; J7620; Q0092

== ENCOUNTER 2018-11-18 11:09 | Inpatient (IN) | payer MEDICAID, MEDICARE ==
[~2018-11-18] VITALS: Ht 160 cm; Wt 89.4 kg
[~2018-11-18 11:09] MED LIST changes: +MER500I IV; +VANC1.2524 IV
--- NOTE | 2018-11-18 11:09 | NUR ---
PT BIBA ALS TO ER BED 10
[2018-11-18 11:10] VITALS: BP 95/40
--- NOTE | 2018-11-18 11:10 | NUR ---
DERIAN FROM [facility]. PT PRESENTS TO ED WITH ALOC STARTED 25 MINS AGO PER EMS. ON O2 2LPM VIA NASAL CANNULA BY EMS, SPO2 98%. PERRL, RESPONDS TO PAINFUL STIMULATION. NON VERBAL. BILATERAL LUNGS CLEAR. TACHYPNEIC. FLACCID BILATERAL UPPER AND LOWER EXTREMITIES. HOB UP, BED RAILS UP X 1, ON LOW BED POSITION, LOCKED. WILL CONTINUE TO MONITOR.
[2018-11-18] MEDS ORDERED: NACL 0.9% 2,000 ML IV SCH (11:24)
--- NOTE | 2018-11-18 11:24 | NUR ---
Patient being evaluated by physician at bedside.
[2018-11-18] MEDS ORDERED: PIPERACILLIN/TAZOBACTAM 3.375 GM in DEXT 5% MINI-BAG PLUS 50 ML IV ONE (11:25)
[2018-11-18] MEDS ORDERED: ACETAMINOPHEN 650 MG SUPP RC ONE (11:30)
[2018-11-18] MEDS ORDERED: ACETAMINOPHEN 325 MG SUPP RC ONE (11:33)
--- NOTE | 2018-11-18 12:00 | NUR ---
PT TAKEN TO CT AT THIS TIME
[2018-11-18] MEDS ORDERED: PIPERACILLIN/TAZOBACTAM 3.375 GM VIAL IV ONE (12:03)
--- NOTE | 2018-11-18 12:12 | NUR ---
PATIENT TAKEN BACK FROM CT TO HER ROOM VIA BED
[2018-11-18 12:13] LABS: BASOPHILS % (AUTO) 0.2 % (0.0-2.0); HEMATOCRIT 42.2 % (36-48); HEMOGLOBIN 13.7 g/dL (12.0-16.0); LYMPHOCYTES # (AUTO) 2.2 K/uL (2.5-16.5); LYMPHOCYTES % (AUTO) 19.5 % (20.5-51.1); MEAN CORPUSCULAR HEMOGLOBIN 31 pg (27-31); MEAN CORPUSCULAR HGB CONC 32 g/dL (33-37); MEAN CORPUSCULAR VOLUME 97.1 fL (80-94); MONOCYTES # (AUTO) 1.5 K/uL (0.8-1.0); MONOCYTES % (AUTO) 12.7 % (1.7-9.3); NEUTROPHILS # (AUTO) 7.8 K/uL (1.8-7.7); NEUTROPHILS % (AUTO) 67.6 % (42.2-75.2); PLATELET COUNT (AUTO) 280 K/uL (140-450); RED BLOOD CELL COUNT(AUTO) 4.35 MIL/uL (4.20-5.40); WHITE BLOOD COUNT (AUTO) 11.5 K/uL (4.8-10.8)
--- NOTE | 2018-11-18 12:13 | NUR ---
RADIOLOGY AT BEDSIDE
--- NOTE | 2018-11-18 12:30 | NUR ---
Pt laying on bed in supine position, eyes open to name, respirations e/u, on full monitor bed in low position, locked, no identified requests at this time. Will continue to monitor closely.
[2018-11-18 12:34] LABS: PROTHROMBIN TIME 10.1 secs (10.8-13.4)
[2018-11-18 12:37] LABS: ACETONE, SERUM NEGATIVE (NEGATIVE)
[2018-11-18 12:51] LABS: APPEARANCE,URINE CLEAR (CLEAR); BILIRUBIN,URINE NEGATIVE (NEGATIVE); BLOOD, URINE TRACE-I (NEGATIVE); COLOR,URINE YELLOW (YELLOW); LEUKOCYTE ESTERASE ,URINE NEGATIVE (NEGATIVE); NITRITE, URINE NEGATIVE (NEGATIVE); PH,URINE 5.5 (5.0-9.0); UGLUCOSE 3+ (NEGATIVE)
[2018-11-18 13:28] LABS: ANION GAP 21.2 (8-16); CHLORIDE 124 mmol/L (98-107); POTASSIUM 4.2 mmol/L (3.5-5.1); SODIUM SERUM 165 mmol/L (136-145)
[2018-11-18 13:29] LABS: CREATININE 2.1 mg/dL (0.6-1.3); GFR ARICAN-AMERICAN 30 mL/min (>90); GLUCOSE 467 mg/dL (74-106); TOTAL BILIRUBIN 0.4 mg/dL (0.0-1.0); UREA NITROGEN, BLOOD 58 mg/dL (7-18)
[2018-11-18 13:30] LABS: ALBUMIN 2.7 g/dL (3.4-5.0); ASPARTATE AMINOTRANSFERASE 27 U/L (15-37); MAGNESIUM 2.8 mg/dL (1.8-2.4); URIC ACID 9.8 mg/dL (2.6-7.2)
[2018-11-18 13:43] LABS: RBC,URINE 0-5 /HPF (0-5); WBC,URINE 0-5 /HPF (0-5)
[2018-11-18] MEDS ORDERED: INSULIN REGULAR, HUMAN 100 UNIT/ML VIAL IVP ONE (14:00)
[2018-11-18] MEDS ORDERED: THIAMINE 200 MG/2 ML VIAL IM ONE (14:00)
[2018-11-18] MEDS ORDERED: POTASSIUM CHL 10 MEQ/D5-1/2NS 1,000 ML IV ONE (14:05)
[2018-11-18] MEDS ORDERED: THIAMINE 200 MG/2 ML VIAL IM SCH (14:15)
--- NOTE | 2018-11-18 14:30 | NUR ---
Pt laying on bed in supine position, pt found hypotensive 85/47, and not following commands EDMD aware, physician to place orders. Respirations E/U, on full monitor bed in low position, locked, no identified requests at this time. Will continue to monitor closely.
--- NOTE | 2018-11-18 15:15 | NUR ---
Pt laying on bed in supine position, eyes open to painful stimuli, following commands, BP stabilized, pt placed on monitor for transfer.
[2018-11-18] MEDS ORDERED: DEXT 5% / NACL 0.2% 1,000 ML IV ONE (15:20)
[2018-11-18] MEDS ORDERED: DEXT 5% / NACL 0.2% 500 ML IV ONE (15:20)
--- NOTE | 2018-11-18 15:25 | NUR ---
Patient will be admitted to care of Dr. Carpenter. Admited to icu. Will go to room icu bed 8. Belongings list completed. Report to Sheila LEAL.
--- NOTE | 2018-11-18 15:30 | NUR ---
PT ADMITTED TO ICU FROM ER. PT IS AWAKE, DISORIENTED, GARBLED SPEECH, FOLLOWS SOME SIMPLE COMMANDS. PERRL. AFEBRILE. A. FIB ON MONITOR. PT IS ON O2 AT 2 LPM/NC. LUNGS SOUND DIMINISHED. BREATHING EVEN AND UNLABORED, NO SOB NOTED. ABDOMEN SOFT, ROUND, NONTENDER W/ ACTIVE BOWEL SOUNDS. BOWEL MOVEMENT X1 UPON ARRIVAL. PICC LINE TO LEFT UPPER ARM INTACT, PATENT, RUNNING IVF D51/2NS W/ 10 MEQ KCL AT 250 ML/HR. PT IS INCONTINENT B&B. SKIN IS DRY AND WARM TO TOUCH. SKIN IS NONINTACT, PRESSURE ULCER TO LEFT HEEL AND SCAB TO RIGHT HEEL NOTED. BLANCHABLE REDNESS TO BILATERAL BUTTOCKS. HOB 30 DEGREES, BED IN LOWEST POSITION AND CALL LIGHT WITHIN REACH. WILL CONTINUE TO MONITOR.
[2018-11-18 16:00] VITALS: BP 102/58
[2018-11-18] MEDS ORDERED: COMPOSITE DRESSING TP PRN (16:50)
[2018-11-18] MEDS ORDERED: MILD SOAP AND WATER TP PRN (16:50)
[2018-11-18] MEDS ORDERED: THERAHONEY GEL 42.5 GM TP PRN (16:50)
[2018-11-18] MEDS ORDERED: WOUND CARE PREPARATION 178 ML SPR TP PRN (16:50)
[2018-11-18] MEDS ORDERED: HYDRAGUARD CREAM TP PRN (16:50)
[2018-11-18] MEDS ORDERED: FOAM DRESSING TP PRN (16:50)
--- NOTE | 2018-11-18 16:54 | NUR ---
A. FIB CONVERTED TO NORMAL SINUS RHYTHM.
[2018-11-18] MEDS ORDERED: DEXT 5% / NACL 0.45% 1,000 ML IV SCH (17:15)
[2018-11-18] MEDS ORDERED: guaiFENesin 20 MG/ML UDC PO PRN (17:40)
[2018-11-18] MEDS ORDERED: GLUCAGON 1 MG VIAL IM PRN (17:40)
[2018-11-18] MEDS ORDERED: ONDANSETRON 4 MG/2 ML VIAL IVP PRN (17:45)
[2018-11-18] MEDS ORDERED: LORazepam 2 MG/ML VIAL IVP PRN (17:45)
[2018-11-18] MEDS ORDERED: MORPHINE SULFATE 4 MG/ML SYR IVP PRN (17:45)
[2018-11-18] MEDS ORDERED: MORPHINE SULFATE 2 MG/ML SYR IVP PRN (17:45)
--- NOTE | 2018-11-18 17:45 | NUR ---
DR. FUNMILYAO Salazar IN THE UNIT, SEEN AND EXAMINED PT. WILL FOLLOW UP ON ORDERS.
--- NOTE | 2018-11-18 17:50 | NUR ---
BLOOD SUGAR 452, [address] FUNMILAYO ROBERTS.
[2018-11-18 18:00] VITALS: BP 115/59
[2018-11-18] MEDS ORDERED: DEXTROSE 50% 50 ML SYR IVP PRN (18:05)
--- NOTE | 2018-11-18 18:16 | NUR ---
DR. Mil MELLO CALLED. UPDATED ON PT'S CONDITION.
--- NOTE | 2018-11-18 18:33 | NUR ---
RECEIVED A CALL FROM DR. SARMIENTO, UPDATES GIVEN ON PT'S CONDITION. ORDERS RECEIVED.
[2018-11-18] MEDS ORDERED: VANCOMYCIN PER PHARMACY MC PRN (18:35)
[2018-11-18 18:50] LABS: ANION GAP 16.6 (8-16); CARBON DIOXIDE 26.1 mmol/L (21-32); CREATININE 2.2 mg/dL (0.6-1.3); POTASSIUM 3.7 mmol/L (3.5-5.1)
--- NOTE | 2018-11-18 19:25 | NUR ---
RECEIVED BEDSIDE REPORT FROM MORNING NURSE, PATIENT IN A SLEEP, AROUSABLE TO LIGHT PAIN, ABLE TO ANSWER VERBALLY SIMPLE QUESTIONS BUT CONFUSED. O2 2L/M VIA NC WITH O2 SAT 94%, BILATERAL LUNGS SOUND DIMINISHED, SR ON THE MONITOR WITH HR 80'S. NO ACUTE DISTRESS NOTED. PICC LINE TO LEFT UPPER ARM, INTACT AND PATENT BUT NO BLOOD RETURN FROM DOUBLE LUMENS. RUNNING WITH 1/2 NS 100ML/HR. PRESSURE ULCERS TO BILATERAL HEEL WITH DRESSING. HOB ELEVATED, BED IN LOW POSITION, CALL LIGHT WITHIN REACH. WILL CONTINUE TO MONITOR.
[2018-11-18] MEDS: NACL 0.45% 1,000 ML IV SCH (19:39)
--- NOTE | 2018-11-18 19:39 | NUR ---
REPORT GIVEN TO ROTARY FURNACE TENDER RN FOR CONTINUITY OF CARE. PT IS IN STABLE CONDITION.
--- NOTE | 2018-11-18 19:45 | NUR ---
US TECH AT BEDSIDE TO DO US KIDNEY. WILL CONTINUE TO MONITOR.
[2018-11-18 20:00] VITALS: BP 117/59
--- NOTE | 2018-11-18 20:00 | NUR ---
INSERTED GORDON CATH 18FR, PATIENT TOLERATED WELL. CLEAR YELLOW URINE NOTED. UA SAMPLE OBTAINED. WILL CONTINUE TO MONITOR.
[2018-11-18] MEDS ORDERED: DIVALPROEX 500 MG TABER PO SCH (21:00)
[2018-11-18] MEDS ORDERED: PIPER/TAZO 2.25GM/D5W PREMIX 50 ML IV SCH (21:00)
[2018-11-18] MEDS ORDERED: FUROSEMIDE 40 MG TAB PO SCH (21:00)
[2018-11-18] MEDS ORDERED: PIPERACILLIN/TAZOBACTAM 3.375 GM in DEXTROSE 5% 50 ML IV SCH (21:00)
[2018-11-18] MEDS ORDERED: VALPROIC ACID 250 MG/5 ML UDC PO SCH (21:00)
--- NOTE | 2018-11-18 21:00 | NUR ---
INSERTED NGT TO LEFT NARES. PLACEMENT CHECKED, NO RESIDUAL NOTED. BS CHECKED 371 NOTED. WILL CONTINUE TO MONITOR.
[2018-11-18 21:03] LABS: CREATINE KINASE MB 2.4 ng/mL (0-3.6)
[2018-11-18] MEDS: INSULIN LISPRO SLIDING SCALE 100 UNITS/ML VIAL SUBQ PRN (21:06)
[2018-11-18] MEDS: BLOOD GLUCOSE MONITORING 1 DEV DEV FS SCH (21:06)
[2018-11-18] MEDS: carBAMazepine 200 MG TAB PO SCH (21:07)
[2018-11-18] MEDS: ASCORBIC ACID 500 MG TAB PO SCH (21:07)
[2018-11-18 22:00] VITALS: BP 114/50
[2018-11-18] MEDS ORDERED: DIVALPROEX SPRINKLES 125 MG CAPDR PO SCH (22:00)
[2018-11-18] MEDS ORDERED: DIVALPROEX 500 MG TABEC PO ONE (22:16)
--- NOTE | 2018-11-18 22:20 | NUR ---
AT BEDSIDE TO CHECK THE PATIENT, RECEIVED ORDERS; IV ABX CHANGE TO MERREM AND WOUND CULTURE FROM LEFT HEEL. CARRIED OUT. WILL CONTINUE TO MONITOR.
[2018-11-18] MEDS ORDERED: DIVALPROEX SPRINKLES 125 MG CAPDR ONE (23:12)
[2018-11-19] VITALS (35 sets, daily range): BP systolic 113–158; BP diastolic 51–107
[2018-11-19] MEDS ORDERED: PIPER/TAZO 2.25GM/D5W PREMIX 50 ML IV SCH
--- NOTE | 2018-11-19 01:00 | NUR ---
PATIENT IN ASLEEP, NO ACUTE DISTRESS NOTED. VSS. DENIES PAIN. ABLE TO ANSWER SIMPLE QUESTIONS BUT CONFUSED. WILL CONTINUE TO MONITOR.
[2018-11-19] MEDS: HYDRAGUARD CREAM TP SCH ×2 (01:25→13:21)
[2018-11-19] MEDS: MILD SOAP AND WATER TP SCH ×2 (01:25→13:22)
--- NOTE | 2018-11-19 04:00 | NUR ---
PATIENT IS ASLEEP, AROUSABLE TO LIGHT TOUCH. NO ACUTE DISTRESS NOTED. VSS. O2 2L/M VIA NC WITH O2 SAT 95% NOTED. WILL CONTINUE TO MONITOR.
[2018-11-19 04:52] LABS: BASOPHILS % (AUTO) 0.3 % (0.0-2.0); EOSINOPHILS % (AUTO) 0.1 % (0.0-4.0); HEMATOCRIT 36.5 % (36-48); HEMOGLOBIN 11.6 g/dL (12.0-16.0); LYMPHOCYTES % (AUTO) 16.3 % (20.5-51.1); MEAN CORPUSCULAR HEMOGLOBIN 31 pg (27-31); MEAN CORPUSCULAR HGB CONC 32 g/dL (33-37); MEAN CORPUSCULAR VOLUME 96.3 fL (80-94); MONOCYTES # (AUTO) 0.9 K/uL (0.8-1.0); MONOCYTES % (AUTO) 7.6 % (1.7-9.3); NEUTROPHILS # (AUTO) 9.1 K/uL (1.8-7.7); NEUTROPHILS % (AUTO) 75.7 % (42.2-75.2); PLATELET COUNT (AUTO) 219 K/uL (140-450); RED BLOOD CELL COUNT(AUTO) 3.79 MIL/uL (4.20-5.40); RED CELL DISTRIBUTION WIDTH 16.3 % (11.6-13.7)
--- NOTE | 2018-11-19 05:30 | NUR ---
PROVIDED MORNING CARE, TOLERATED WELL. NO ACUTE DISTRESS. VSS. PATIENT HAD MODERATE AMOUNT BROWN FORMED STOOL NOTED. DENIES PAIN AT THIS TIME. WILL CONTINUE TO MONITOR.
[2018-11-19] MEDS: NACL 0.45% 1,000 ML IV SCH (05:48)
[2018-11-19 05:56] LABS: ALBUMIN 2.2 g/dL (3.4-5.0); ANION GAP 14.2 (8-16); CARBON DIOXIDE 27.6 mmol/L (21-32); CREATININE 1.7 mg/dL (0.6-1.3); MAGNESIUM 2.5 mg/dL (1.8-2.4); PHOSPHORUS 4.5 mg/dL (2.5-4.9); POTASSIUM 3.8 mmol/L (3.5-5.1); TOTAL BILIRUBIN 0.3 mg/dL (0.0-1.0)
[2018-11-19 06:01] LABS: CREATINE KINASE MB 2.9 ng/mL (0-3.6)
[2018-11-19] MEDS: LEVOTHYROXINE 0.075 MG TAB PO SCH (06:46)
[2018-11-19] MEDS: BLOOD GLUCOSE MONITORING 1 DEV DEV FS SCH ×4 (06:48→20:17)
[2018-11-19] MEDS: INSULIN LISPRO SLIDING SCALE 100 UNITS/ML VIAL SUBQ PRN ×3 (06:51→20:16)
--- NOTE | 2018-11-19 07:30 | NUR ---
RECEIVED BEDSIDE REPORT FROM CANTEEN OPERATOR RN. PT IS ASLEEP, AROUSABLE TO LIGHT PAIN. FOLLOWS SIMPLE COMMANDS. SINUS RHYTHM ON MONITOR, S1 S2 HEARD. PT IS ON O2 AT 2 LPM/NC. LUNGS SOUND CLEAR BILATERALLY. NO SOB NOTED, BREATHING EVEN AND UNLABORED. ABDOMEN SOFT, NONTENDER W/ ACTIVE BOWEL SOUNDS. NGT IN PLACE, PLACEMENT CONFIRMED VIA AUSCULTATION. PICC LINE TO LEFT UPPER ARM INTACT, PATENT, RUNNING IVF 1/2NS AT 100 ML/HR. DRESSINGS TO PRESSURE ULCER TO LEFT HEEL AND SCAB TO RIGHT HEEL CLEAN, DRY AND INTACT. HEEL PROTECTORS IN PLACE. GORDON CATH IN PLACE DRAINING LIGHT NHUNG URINE TO GRAVITY. SKIN IS DRY AND WARM TO TOUCH. PT IS AFEBRILE. FLACC 0. HOB 30 DEGREES, BED IN LOWEST POSITION LOCKED, CALL LIGHT WITHIN REACH. WILL CONTINUE TO MONITOR.
[2018-11-19] MEDS: MEROPENEM 500 MG in NACL 0.9% 50 ML IV SCH ×2 (08:19→20:14)
[2018-11-19] MEDS: POLYETHYLENE GLYCOL 17 GM/PKT PO SCH (08:19)
[2018-11-19] MEDS: MULTIVITAMIN 1 TAB PO SCH (08:20)
[2018-11-19] MEDS: ECOTRIN 81 MG TABEC PO SCH (08:20)
[2018-11-19] MEDS: ASCORBIC ACID 500 MG TAB PO SCH ×2 (08:20→20:13)
[2018-11-19] MEDS: carBAMazepine 200 MG TAB PO SCH ×2 (08:20→20:13)
[2018-11-19] MEDS: LACTOBACILLUS RHAMNOSUS GG 1 EACH CAP PO SCH ×3 (08:20→16:31)
[2018-11-19] MEDS: PANTOPRAZOLE 40 MG TABEC PO SCH (08:20)
[2018-11-19] MEDS: amLODIPine 5 MG TAB PO SCH (08:20)
[2018-11-19] MEDS: KETOCONAZOLE 2% 15 GM TUBE TP SCH (08:21)
[2018-11-19] MEDS: DIVALPROEX SPRINKLES 125 MG CAPDR PO SCH ×2 (08:21→20:13)
[2018-11-19] MEDS: INSULIN NPH HUMAN ISOPHANE 100 UNIT/ML VIAL SUBQ SCH (08:22)
--- NOTE | 2018-11-19 08:45 | NUR ---
PT SEEN AND EXAMINED BY DR. WALTON. WILL FOLLOW UP ON ORDERS.
--- NOTE | 2018-11-19 08:48 | NUR ---
PATIENT HAS BEEN SCREENED AND CATEGORIZED HIGH NUTRITION RISK. PATIENT WILL BE SEEN WITHIN 1-2 DAYS OF ADMISSION. 11/19/18-11/20/[address]
--- NOTE | 2018-11-19 08:51 | NUR ---
MEDICATIONS ADMINISTERED ORDERED. PT TOLERATED WELL.
[2018-11-19] MEDS ORDERED: POTASSIUM CHLORIDE 8 MEQ TABER PO SCH (09:00)
--- NOTE | 2018-11-19 09:07 | NUR ---
DR. RUSHING IN TO SEE PT. WILL FOLLOW UP ON ORDERS.
--- NOTE | 2018-11-19 10:10 | NUR ---
ECHOCARDIOGRAM BEING DONE AT BEDSIDE. NO S/SX OF ACUTE DISTRESS NOTED. VSS. WILL CONTINUE TO MONITOR.
--- NOTE | 2018-11-19 11:29 | NUR ---
DR. WALTON INFORMED THAT UNABLE TO SCHEDULE PT FOR MRI UNTIL SUNDAY. PER DR. WALTON IT IS OK.
--- NOTE | 2018-11-19 13:00 | NUR ---
WOUND CARE AND TREATMENT DONE ORDERED. PT TOLERATED WELL.
[2018-11-19] MEDS: WOUND CARE PREPARATION 178 ML SPR TP SCH (13:21)
[2018-11-19] MEDS: THERAHONEY GEL 42.5 GM TP SCH (13:21)
[2018-11-19] MEDS: COMPOSITE DRESSING TP SCH (13:21)
--- NOTE | 2018-11-19 14:00 | NUR ---
CALLED DR. SONG'S OFFICE, NOTIFIED DR. SONG OF HIS NEW CONSULT.
--- NOTE | 2018-11-19 14:01 | NUR ---
PT SEEN AND EXAMINED BY DR. WILLIAMSON. WILL FOLLOW UP ON ORDERS. Addendum: 11/19/18 at 1417 by Zeus Liu RN BRANDY HERNANDEZ
[2018-11-19] MEDS: DEXT 5% / NACL 0.2% 1,000 ML IV SCH (14:10)
--- NOTE | 2018-11-19 14:44 | NUR ---
RECEIVED AN ORDER FOR MRI BRAIN WITHOUT CONTRAST.. SPOKE WITH MARY ELLEN AT [facility]. SHE SAID NO TECH TOMORROW, BUT HAS TECH ON SUNDAY [id number]. TO 12A.M. FAXED THE ORDER TO HER AT [phone] INCLUDING FACE SHEET AND QUESTIONNAIRE AND CT HEAD. SHE SAID SHE DOES HAVE A NURSE AT RADIOLOGY. SHE ASKED THAT WE CALL HER TOMORROW TO CONFIRM TIME FOR MRI FOR SUNDAY. PER [employer] APPLIANCE TECH NURSE, DR. WALTON SAID SUNDAY IS OKAY. Addendum: 11/19/18 at 1448 by Komal Parikh CM PHONE MARY ELLEN [phone]
--- NOTE | 2018-11-19 14:55 | NUR ---
11/19/18 RD INITIAL ASSESSMENT COMPLETED PLEASE REFER TO NUTRITION ASSESSMENT UNDER CARE ACTIVITY FOR ESTIMATED NUTRITIONAL NEEDS. 1. CONTINUE NPO MEDICALLY NECESSARY 2. WHEN PATIENT BECOMES MEDICALLY STABLE CONSIDER REQUESTING A SWALLOW EVALULATION TO ADVANCE DIET 3. CONTINUE MULTIVITAMIN WITH VITAMIN C 4. RD TO FOLLOW-UP 2-3 DAYS, HIGH RISK ANGEL GO, RD
--- NOTE | 2018-11-19 14:55 | NUR ---
RETURNED FROM RADIOLOGY. CT OF ABDOMEN/PELVIS DONE. PT TOLERATED WELL.
--- NOTE | 2018-11-19 15:18 | NUR ---
NORMAL SINUS RHYTHM TURNED INTO A. FIB.
[2018-11-19] MEDS ORDERED: INSULIN LANTUS 100 UNITS/ML 10 ML VIAL SUBQ SCH (15:40)
--- NOTE | 2018-11-19 15:45 | NUR ---
PT SEEN BY DR. SONG. WILL FOLLOW UP ON ORDERS.
--- NOTE | 2018-11-19 16:30 | NUR ---
DR. FUNMILAYO Champion MADE AWARE THAT Good. SAHIL HAS CONVERTED TO NSR. ORDERS RECEIVED. Addendum: 11/19/18 at 1927 by Zeus Liu RN WRONG TIME. CORRECT TIME = 1830
--- NOTE | 2018-11-19 16:49 | NUR ---
DR. FUNMILAYO Champion IN TO SEE PT. WILL FOLLOW UP ON ORDERS.
[2018-11-19] MEDS ORDERED: DILTIAZEM 125 MG in DEXTROSE 5% 100 ML IV SCH (16:55)
--- NOTE | 2018-11-19 17:48 | NUR ---
A. FIB CONVERTED INTO NORMAL SINUS RHYTHM. PT ON CARDIZEM DRIP AT 10 MG/HR.
--- NOTE | 2018-11-19 19:28 | NUR ---
REPORT GIVEN TO RETIREMENT PLAN SPECIALIST RN FOR CONTINUITY OF CARE. PT IS IN STABLE CONDITION.
--- NOTE | 2018-11-19 19:30 | NUR ---
RECEIVED REPORT FROM MORNING RN, JACQUES, FOR CONTINUITY OF CARE. VS STABLE AT THIS TIME. PT AWAKE AND ABLE TO FOLLOW SIMPLE COMMANDS. PT DENIES PAIN OR ANY DISCOMFORT AT THIS TIME. PERRL. LUNG SOUNDS CLEAR. PT ON OXYGEN AT 2L/MIN VIA NC. RESPIRATIONS ARE EVEN AND UNLABORED. NO SOB NOTED. S1+S2 HEARD. SR ON MONITOR. PULSES ARE PALPABLE IN ALL EXTREMITIES. NGT THROUGH LEFT NARES AT THIS TIME. PLACEMENT WAS CHECKED. GORDON CATHETER IN PLACE WITH CLEAR AND YELLOW URINE IN PLACE. RECEIVED PT WITH PICC LINE ON LEFT UPPER ARM. PT HAS D5 0.20NS AT 100ML/HR. RECEIVED PT ON CARDIZEM DRIP AT 10MG/HR. SKIN IS WARM AND DRY TO TOUCH. KEPT HOB AT 30 DEGREES AT THIS TIME. ALL SAFETY PRECAUTIONS ARE IN PLACE AT THIS TIME.
--- NOTE | 2018-11-19 20:10 | NUR ---
PT WAS TURNED AND REPOSITIONED AT TH IS TIME. PT WAS ABLE TO ASSIST. DENIES ANY DISCOMFORT AT THIS TIME. WILL CONTINUE TO MONITOR.
[2018-11-19] MEDS: SIMVASTATIN 20 MG TAB PO SCH (20:13)
--- NOTE | 2018-11-19 22:17 | NUR ---
NO CHANGE IN PT'S CONDITION AT THIS TIME. PT REMAINS AFIB ON MONITOR WITH HR BETWEEN 70S TO 80S. PT DOES NOT APPEAR TO BE EXPERIENCING ANY DISCOMFORT AT THIS TIME. WILL CONTINUE TO MONITOR PT.
[2018-11-20] VITALS (39 sets, daily range): BP systolic 101–173; BP diastolic 56–127
[2018-11-20] MEDS: DILTIAZEM 60 MG TAB PO SCH ×4 (00:01→17:17)
[2018-11-20] MEDS: MILD SOAP AND WATER TP SCH ×2 (00:02→13:05)
[2018-11-20] MEDS: HYDRAGUARD CREAM TP SCH ×2 (00:02→13:06)
[2018-11-20] MEDS: DEXT 5% / NACL 0.2% 1,000 ML IV SCH ×3 (00:02→21:13)
--- NOTE | 2018-11-20 00:39 | NUR ---
CALLED DR. Mil MELLO TO INFORM HIM THAT PT'S RHYTHM IS AFIB AT THIS TIME. CARDIZEM PO FIRST DOSE WAS ALREADY ADMINISTERED WELL. RECEIVED AN ORDER TO DECREASE CARDIZEM DRIP DOSE TO 5MG/HR AND HOLD THE NEXT DOSE OF CARDIZEM DRIP.
--- NOTE | 2018-11-20 02:02 | NUR ---
PT WATCHING TELEVISION AT THIS TIME. DENIES ANY DISCOMFORT OR PAIN. VS STABLE AT THIS TIME. AFIB ON BEDSIDE MONITOR WITH HR BETWEEN 70S TO 80S. PT REMAINS OF CARDIZEM DRIP AT 5MG/HR.
[2018-11-20] MEDS ORDERED: DILTIAZEM 125 MG in DEXTROSE 5% 100 ML IV SCH (03:00)
[2018-11-20 06:25] LABS: BASOPHILS # (AUTO) 0.1 K/uL (0.00-0.22); BASOPHILS % (AUTO) 0.8 % (0.0-2.0); EOSINOPHILS # (AUTO) 0.1 K/uL (0-0.4); EOSINOPHILS % (AUTO) 2.1 % (0.0-4.0); HEMATOCRIT 37.3 % (36-48); HEMOGLOBIN 12.1 g/dL (12.0-16.0); LYMPHOCYTES % (AUTO) 27.4 % (20.5-51.1); MEAN CORPUSCULAR HEMOGLOBIN 32 pg (27-31); MEAN CORPUSCULAR HGB CONC 33 g/dL (33-37); MEAN CORPUSCULAR VOLUME 97.1 fL (80-94); MONOCYTES # (AUTO) 0.5 K/uL (0.8-1.0); MONOCYTES % (AUTO) 7.4 % (1.7-9.3); NEUTROPHILS # (AUTO) 4.5 K/uL (1.8-7.7); NEUTROPHILS % (AUTO) 62.3 % (42.2-75.2); PLATELET COUNT (AUTO) 201 K/uL (140-450); RED BLOOD CELL COUNT(AUTO) 3.84 MIL/uL (4.20-5.40); RED CELL DISTRIBUTION WIDTH 15.7 % (11.6-13.7); WHITE BLOOD COUNT (AUTO) 7.1 K/uL (4.8-10.8)
[2018-11-20] MEDS: LEVOTHYROXINE 0.075 MG TAB PO SCH (06:30)
[2018-11-20 06:38] LABS: ANION GAP 14.2 (8-16); CARBON DIOXIDE 26.4 mmol/L (21-32); POTASSIUM 3.6 mmol/L (3.5-5.1)
[2018-11-20 06:44] LABS: ALBUMIN 2.2 g/dL (3.4-5.0); MAGNESIUM 2.4 mg/dL (1.8-2.4); TOTAL BILIRUBIN 0.4 mg/dL (0.0-1.0)
[2018-11-20] MEDS: BLOOD GLUCOSE MONITORING 1 DEV DEV FS SCH ×5 (07:30→22:55)
[2018-11-20] MEDS: LACTOBACILLUS RHAMNOSUS GG 1 EACH CAP PO SCH ×3 (08:00→17:16)
--- NOTE | 2018-11-20 08:00 | NUR ---
PATIENT OPENS EYES TO VOICE, DOES NOT COMMUNICATE AT THIS TIME, LOCALIZES TO PAIN, SINUS RHYTHM, ON CARDIZEM DRIP 5MGS/HR., NASAL CANNULA O2 2L/MIN. 100%, BILATERAL CLEAR BREATH SOUNDS ANTERIOR CHEST, WITH NG TUBE LEFT NARES, NO RESIDUALS, NPO EXCEPT MEDICATIONS ORDERED, WITH GORDON CATHETER, CLEAR YELLOW URINE NOTED IN THE UROMETER, WITH PICC LINE AT LEFT UPPER ARM-SITE ASYMPTOMATIC WITH CLEAN/INTACT DRESSING- D5 0.2%NS INFUSING AT 100ML/HR, CARDIZEM IN SEPARATE PORT, BACK INTACT, BILATERAL FOAM BOOTS ON, PRESSURE SORE ON BILATERAL HEELS WITH CLEAN INTACT DRESSING
[2018-11-20] MEDS ORDERED: INSULIN LANTUS 100 UNITS/ML 10 ML VIAL SUBQ SCH ×2 (09:00)
[2018-11-20] MEDS: ASCORBIC ACID 500 MG TAB PO SCH ×2 (09:00→21:11)
[2018-11-20] MEDS: PANTOPRAZOLE 40 MG TABEC PO SCH (09:00)
[2018-11-20] MEDS: INSULIN NPH HUMAN ISOPHANE 100 UNIT/ML VIAL SUBQ SCH (09:00)
[2018-11-20] MEDS: MULTIVITAMIN 1 TAB PO SCH (09:00)
[2018-11-20] MEDS: DIVALPROEX SPRINKLES 125 MG CAPDR PO SCH ×2 (09:00→21:12)
[2018-11-20] MEDS: carBAMazepine 200 MG TAB PO SCH ×2 (09:00→21:14)
[2018-11-20] MEDS: POLYETHYLENE GLYCOL 17 GM/PKT PO SCH (09:00)
[2018-11-20] MEDS: MEROPENEM 500 MG in NACL 0.9% 50 ML IV SCH ×2 (09:00→21:12)
[2018-11-20] MEDS: ECOTRIN 81 MG TABEC PO SCH (09:00)
[2018-11-20] MEDS: amLODIPine 5 MG TAB PO SCH (09:00)
[2018-11-20] MEDS: KETOCONAZOLE 2% 15 GM TUBE TP SCH (09:00)
[2018-11-20] MEDS: VANCOMYCIN 1GM/DEXT 5% PREMIX 200 ML IV SCH (09:00)
--- NOTE | 2018-11-20 09:00 | NUR ---
DR. SONG HERE FOR ROUNDS
--- NOTE | 2018-11-20 09:37 | NUR ---
DR. MELLO BEHAVIORAL SERVICES TECH ON THE PHONE AND MADE AWARE OF PATIENT RECENT VITAL SIGNS, SINUS RHYTHM RATE IN THE 60s. OK TO DISCONTINUE CARDIZEM DRIP, TELEPHONE ORDERS RECEIVED-READBACK AND VERIFIED
--- NOTE | 2018-11-20 10:26 | NUR ---
FAXED H&P AND MED LIST TO [facility], [phone] RECEIVED A CALL FROM MARY ELLEN FROM [facility]. SHE SAID THEY CAN DO THE MRI OF THE HEAD ON THIS PATIENT ON 11/21/18 AT 2P.M. ARRANGE DIAGNOSTIC TECHNICIAN BY 1:15P.M. I CALLED MARY ELLEN BACK AND INFORMED HER THAT THE PATIENT WAS ON A CARDIZEM DRIP AT THE PRESENT TIME. WILL CALL WHEN PATIENT IS STABLE TO GET THE MRI. SHE WILL HOLD THE APPOINTMENT AT THE PRESENT TIME. SHE SAID SHE DOES HAVE A NURSE IN RADIOLOGY.
--- NOTE | 2018-11-20 10:26 | NUR ---
WOUND CARE EVALUATION NOTE: REASON FOR EVALUATION: MULTIPLE WOUNDS SKIN ASSESSMENT DONE WITH THIS 58 Y/O FEMALE PT. ADMITTED FROM SNF TO [facility] WITH INITIAL DX OF ALOC. PAST MEDICAL HX INCLUDES CVA RIGHT SIDE WEAKNESS, HTN, DM AND GERD. PT. ADMITTED WITH BILATERAL HEELS ULCERS. PT IS AWAKE, SKIN IS WARM AND DRY, BLE NO HAIR GROWTH, DORSAL PEDAL PULSES PRESENT FUNGAL NAILS X 10 TOES[address] F/C IN PLACE, CLEAR YELLOW COLOR OF MODERATE AMOUNT URINE OUTPUT. PLAN OF CARE DISCUSSED WITH PRIMARY RN AND PT. AND PT VERBALIZES UNDERSTANDING. INTEGUMENTARY: -POSTERIOR RIGHT THIGH AND RIGHT LATERAL FOOT TO 5TH DIGIT OLD SCARS -PRESSURE INJURY UNSTAGEABLE TO RIGHT HEEL, 1X2CM BROWN SCAB -PRESSURE INJURY UN-STAGEABLE TO LEFT HEEL 3.5X5CM WITH 30% BROWN SOFT SLOUGH AND 70% GRANULATING TISSUE ON WOUND BED, MODERATE AMOUNT OF SEROSANGUINEOUS DRAINAGE, NO ODOR, PERIWOUND SKIN INTACT PALE WHITE WITH SURROUNDING REDNESS INDICATED FURTHER DAMAGE - SACRALCOCCYX BLANCHABLE REDNESS WITH SKIN INTACT. RECOMMENDATIONS: -KEEP SKIN DRY AND CLEAN AT ALL TIMES -CLEANSE LEFT HEEL ULCER WITH WOUND CLEANSING SOLUTION AND APPLY THERAHONEY GEL TO COVER WITH DRY DRESSING QD AND PRN IF SOILING -APPLY OPTIFORM TO RIGHT HEEL AND CHANGE Q5D AND PRN IF DISLODGED -OFFLOAD BILATERAL HEELS BY PLACING PILLOWS UNDER CALVES UNLESS OTHERWISE CONTRAINDICATED -HEEL RAISERS TO BILATERAL HEELS AT ALL TIMES -PRESSURE REDISTRIBUTION SURFACE THERAPY -TURN AND REPOSITION Q2H, OFFLOAD SACRALCOCCYX BY TURNING RIGHT AND LEFT -MONITOR SKIN CONDITION EACH TIME PT IS REPOSITIONS -CONTINUE TO FOLLOW RD RECOMMENDATIONS ALL ABOVE RECOMMENDATIONS DISCUSSED WITH PRIMARY RN WILL FOLLOW UP PT Q7-10 DAYS. PLEASE CONTACT WOUND CARE NURSE FOR ANY QUESTION AND CHANGE OF WOUND CONDITION.
--- NOTE | 2018-11-20 10:35 | NUR ---
PER DR FUNMILAYO IVEY TO JOSE [place]NON, START ON PO AND START ON METOPROLOL 25MG BID AND GIVE FRIST DOSE NOW. ORDERS TRANSCRIBED AND CARRIED OUT. PRIMARY RN AWARE.
[2018-11-20] MEDS ORDERED: METOPROLOL 25 MG TAB PO SCH ×2 (11:00→21:00)
--- NOTE | 2018-11-20 11:59 | NUR ---
Client Success Specialist Note: Per Esha from [facility] , patient is on a 7 day bed hold. On previous hospital admission ([facility]) patient was transferred to [facility] for short term placement. Patient resides at [facility] . Patient�s corpsman at [facility] is Komal Cleveland . Patient does not have any family members.
[2018-11-20] MEDS: INSULIN LISPRO SLIDING SCALE 100 UNITS/ML VIAL SUBQ PRN ×2 (12:00→17:22)
--- NOTE | 2018-11-20 12:17 | NUR ---
DR. RUSHING AT BEDSIDE. PLAN TO DO SWALLOW EVALUATION
[2018-11-20] MEDS: THERAHONEY GEL 42.5 GM TP SCH (13:04)
[2018-11-20] MEDS: WOUND CARE PREPARATION 178 ML SPR TP SCH (13:05)
[2018-11-20] MEDS: COMPOSITE DRESSING TP SCH (13:06)
--- NOTE | 2018-11-20 13:10 | NUR ---
DR. MELLO AT BEDSIDE. INFORMED OF PATIENT'S VITAL SIGN TRENDS, HEART RATE WOULD DROP TO 50s, SBP HIGH IN THE 160-170s. PER PHYSICIAN WILL NOT GIVE PRN ANTIHYPERTENSIVE WILL WAIT FOR THE METOPROLOL AND CARDIZEM MEDICATIONS TO WORK, CONTINUE TO MONITOR, MAY GIVE PRN NORCO FOR PAIN IN BOTH HEELS
--- NOTE | 2018-11-20 13:12 | NUR ---
PER DR. MELLO WAIT ANOTHER DAY TO MONITOR PATIENT PRIOR TO TRANSPORTING PATIENT FOR MRI
[2018-11-20] MEDS ORDERED: HYDROcodone/APAP 5/325 MG 1 TAB TAB PO PRN (13:40)
--- NOTE | 2018-11-20 14:15 | NUR ---
PER DR. Marie MELLO, IF PATIENT IS STABLE ALL DAY, MAY TRANSFER TO TELEMETRY IN AM.
--- NOTE | 2018-11-20 18:00 | NUR ---
PM CARE RENDERED, PATIENT TOLERATED. BACK INTACT. PUT PATIENT ON ROOM AIR SO2 >95%. WILL CONTINUE TO MONITOR
--- NOTE | 2018-11-20 19:05 | NUR ---
RECEIVED BEDSDIE REPORT FROM RNOSEI. PT IS IN STABLE CONDITION AT THIS TIME. AFEBRILE, BP 120/68, SATING 97%, RR=16, HR=97. PERRL, GARBLED/DELAYED SPEECH AAOX1-2. ON ROOM AIR, LUNG SOUNDS CLEAR.SR ON QUOTATION CHECKER. NGT IN PLACE, NPO EXCEPT MEDS. BOWEL SOUNDS ACTIVE X4. DANNI PICC LINE INFUSING D5.2NS AT 100ML/HR. GORDON CATH IN PLACE. CONTACT ISOLATION MAINTAINED. HOB ABOVE 30 DEG. SKIN IS NON-INTACT, WITH WOUNDS BILATERAL HEELS, COVERED WITH DRESSING AND HEEL PROTECTORS ON.
[2018-11-20] MEDS: SIMVASTATIN 20 MG TAB PO SCH (21:11)
--- NOTE | 2018-11-20 22:30 | NUR ---
PT AWAKE, WATCHING TV, APPEARS TO BE WITHOUT DISTRESS.
[2018-11-21] VITALS (9 sets, daily range): BP systolic 132–171; BP diastolic 53–84
[2018-11-21] MEDS: DILTIAZEM 60 MG TAB PO SCH ×5 (00:53→23:55)
[2018-11-21] MEDS: MILD SOAP AND WATER TP SCH ×2 (01:00→13:45)
[2018-11-21] MEDS: HYDRAGUARD CREAM TP SCH ×2 (01:00→13:45)
--- NOTE | 2018-11-21 01:04 | NUR ---
PT AWAKE, REPOSITIONED. ADULT PAIN SCALE 0/10 APPEARS TO BE WITHOUT DISTRESS. AFEBRILE TEMP 97.3 [address]GT [address] AND IN PLACE.
--- NOTE | 2018-11-21 04:45 | NUR ---
AM CARES PROVIDED, PT REPOSITIONED, DRESSING ON HEELS DRY/INTACT. HEEL PROTECTORS ON. HOB ELEVATED.
--- NOTE | 2018-11-21 05:04 | NUR ---
PAGED DR. VIKAS MELLO Addendum: 11/21/18 at 0518 by Lizbeth Rodriguez RN ALSO PAGED DR QUE MELLO AT THIS TIME
--- NOTE | 2018-11-21 05:36 | NUR ---
UNABLE TO DRAW BLOOD FROM PICC LINE, HEATH FROM LAB AT BEDSIDE TO COLLECT BLOOD SAMPLE.
[2018-11-21] MEDS ORDERED: hydrALAZINE 20 MG/ML VIAL IVP PRN (05:45)
[2018-11-21] MEDS: LEVOTHYROXINE 0.075 MG TAB PO SCH (06:03)
[2018-11-21] MEDS: BLOOD GLUCOSE MONITORING 1 DEV DEV FS SCH ×4 (07:09→20:23)
[2018-11-21 07:59] LABS: BASOPHILS % (AUTO) 0.5 % (0.0-2.0); EOSINOPHILS # (AUTO) 0.3 K/uL (0-0.4); EOSINOPHILS % (AUTO) 4.5 % (0.0-4.0); HEMOGLOBIN 11.6 g/dL (12.0-16.0); LYMPHOCYTES # (AUTO) 1.3 K/uL (2.5-16.5); LYMPHOCYTES % (AUTO) 21.9 % (20.5-51.1); MEAN CORPUSCULAR HEMOGLOBIN 32 pg (27-31); MEAN CORPUSCULAR HGB CONC 33 g/dL (33-37); MEAN CORPUSCULAR VOLUME 95.4 fL (80-94); MONOCYTES # (AUTO) 0.3 K/uL (0.8-1.0); MONOCYTES % (AUTO) 5.8 % (1.7-9.3); NEUTROPHILS # (AUTO) 3.9 K/uL (1.8-7.7); NEUTROPHILS % (AUTO) 67.3 % (42.2-75.2); PLATELET COUNT (AUTO) 179 K/uL (140-450); RED BLOOD CELL COUNT(AUTO) 3.67 MIL/uL (4.20-5.40); RED CELL DISTRIBUTION WIDTH 15.2 % (11.6-13.7); WHITE BLOOD COUNT (AUTO) 5.8 K/uL (4.8-10.8)
--- NOTE | 2018-11-21 08:00 | NUR ---
PATIENT OPENS EYES TO SPONTANEOUSLY, ORIENTED TO SELF AND PLACE, NOTED GARBLED SPEECH, OBEYS SIMPLE COMMANDS, SINUS RHYTHM, ON ROOM AIR SO2 96%, BILATERAL CLEAR BREATH SOUNDS ANTERIOR CHEST, WITH NG TUBE LEFT NARES, NO RESIDUALS, NPO EXCEPT MEDICATIONS ORDERED, WITH GORDON CATHETER, CLEAR YELLOW URINE NOTED IN THE UROMETER, WITH PICC LINE AT LEFT UPPER ARM-SITE ASYMPTOMATIC WITH CLEAN/INTACT DRESSING- D5 0.2%NS INFUSING AT 100ML/HR, CARDIZEM IN SEPARATE PORT, BACK INTACT, BILATERAL FOAM BOOTS ON, PRESSURE SORE ON BILATERAL HEELS WITH CLEAN INTACT DRESSING
[2018-11-21 08:12] LABS: ANION GAP 13.9 (8-16); CARBON DIOXIDE 25.7 mmol/L (21-32); CREATININE 0.7 mg/dL (0.6-1.3); MAGNESIUM 1.8 mg/dL (1.8-2.4); PHOSPHORUS 2.1 mg/dL (2.5-4.9); POTASSIUM 3.6 mmol/L (3.5-5.1); TOTAL BILIRUBIN 0.4 mg/dL (0.0-1.0)
[2018-11-21] MEDS: ASCORBIC ACID 500 MG TAB PO SCH ×2 (08:39→20:45)
[2018-11-21] MEDS: carBAMazepine 200 MG TAB PO SCH ×2 (08:39→20:45)
[2018-11-21] MEDS: ECOTRIN 81 MG TABEC PO SCH (08:39)
[2018-11-21] MEDS: LACTOBACILLUS RHAMNOSUS GG 1 EACH CAP PO SCH ×3 (08:39→17:16)
[2018-11-21] MEDS ORDERED: FOAM DRESSING TP SCH (09:00)
[2018-11-21] MEDS: METOPROLOL 50 MG TAB PO SCH ×2 (09:05→20:46)
[2018-11-21] MEDS: PANTOPRAZOLE 40 MG TABEC PO SCH (09:05)
[2018-11-21] MEDS: POLYETHYLENE GLYCOL 17 GM/PKT PO SCH (09:06)
[2018-11-21] MEDS: INSULIN NPH HUMAN ISOPHANE 100 UNIT/ML VIAL SUBQ SCH (09:07)
[2018-11-21] MEDS: DIVALPROEX SPRINKLES 125 MG CAPDR PO SCH ×2 (09:08→20:46)
[2018-11-21] MEDS: KETOCONAZOLE 2% 15 GM TUBE TP SCH (09:09)
[2018-11-21] MEDS: MULTIVITAMIN 1 TAB PO SCH (09:10)
[2018-11-21] MEDS: MEROPENEM 500 MG in NACL 0.9% 50 ML IV SCH ×2 (09:11→20:57)
--- NOTE | 2018-11-21 09:17 | NUR ---
DR. MELLO THE ATTENDING PHYSICIAN AT BEDSIDE
--- NOTE | 2018-11-21 09:19 | NUR ---
11/21/18 RD FOLLOW UP COMPLETED PLEASE REFER TO NUTRITION ASSESSMENT UNDER CARE ACTIVITY FOR ESTIMATED NUTRITIONAL NEEDS. 1. CONTINUE NPO MEDICALLY NECESSARY 2. IF PATIENT PASSES SWALLOW EVALUATION RECOMMEND A CARDIAC AND CCHO 60 GM DIET WITH RECOMMENDED FOOD TEXTURES AND LIQUID CONSISTENCIES 3. IF PATIENT DOES NOT PASS THE SWALLOW EVALUATION CONSIDER ENTERAL NUTRITION 4. CONTINUE MULTIVITAMIN WITH VITAMIN C 5. RD TO FOLLOW-UP 2-3 DAYS, HIGH RISK ANGEL GO RD
[2018-11-21] MEDS: VANCOMYCIN 1GM/DEXT 5% PREMIX 200 ML IV SCH (09:30)
[2018-11-21] MEDS: DEXT 5% / NACL 0.2% 1,000 ML IV SCH ×3 (09:31→22:20)
--- NOTE | 2018-11-21 09:49 | NUR ---
S.T. BEDSIDE SWALLOW EVAL COMPLETED See report for details. Pt presents with mild oral dysphagia c/b prolonged mastication with diffuse oral residue after swallow of solids. No overt s/s aspiration observed across all textures. Pt unable to feed self. Pt impulsive, taking large sips of thin liquid via straw. Requires external pacing from a 1:1 feeder. Recommend: 1) Advance to mechanical soft ground diet, thin liquids okay. Straws okay, sips controlled by feeder. 2) P.O. meds crushed and mixed with puree. 3) 1:1 feeder w/ aspiration precautions Pt appears to be functioning at or close to PLOF. No further swallow tx indicated at this time. [facility] to [facility]. D/w bedside RN results/recommendations. Time [id number]
--- NOTE | 2018-11-21 09:50 | NUR ---
ISABELLE FELDER INFORMED THAT PT. HAS METAL FRAGMENT IN HER MOUTH, HE SAID IT OK TO HAVE MRI OF THE ASHTYN.
--- NOTE | 2018-11-21 10:17 | NUR ---
CALLED KORTNEY FROM [facility]. SHE SAID THEY CAN DO THE MRI AT NOON TODAY. I CALLED [facility] AND SET UP ALS TRANSPORT FOR 11A.M. PER ANALI. [facility] TO STOP IN OUT PATIENT SURGERY FIRST. I CALLED ICU AND INFORMED TELMA RN OF TIME OF PICKUP. KORTNEY FROM [facility] AWARE OF METAL IN 3 TEETH. PER TELMA IN ICU, DR. WALTON OK WITH PATIENT GOING FOR MRI TODAY.
[2018-11-21] MEDS ORDERED: POTASSIUM PHOSPHATE 15 MM in NACL 0.9% 250 ML IV SCH (10:30)
[2018-11-21] MEDS: INSULIN LISPRO SLIDING SCALE 100 UNITS/ML VIAL SUBQ PRN ×2 (11:04→20:42)
[2018-11-21] MEDS ORDERED: SODIUM PHOSPHATE 15 MMOLE in NACL 0.9% 250 ML IV ONE (13:15)
--- NOTE | 2018-11-21 13:30 | NUR ---
PATIENT ARRIVED FROM [facility]. TRANSFERRED TO ICU BED AND HOOKED TO MONITORS. VITAL SIGNS STABLE
[2018-11-21] MEDS: THERAHONEY GEL 42.5 GM TP SCH (13:46)
[2018-11-21] MEDS: WOUND CARE PREPARATION 178 ML SPR TP SCH (13:46)
--- NOTE | 2018-11-21 14:12 | NUR ---
DR. RUSHING HERE FOR ROUNDS. OK TO START P.O. DIET AND DISCONTINUE NGT
[2018-11-21] MEDS: COMPOSITE DRESSING TP SCH (14:42)
--- NOTE | 2018-11-21 15:00 | NUR ---
PATIENT NOW OFF CONTACT ISOLATION PER ICU AGGIE HOLLIS
--- NOTE | 2018-11-21 15:20 | NUR ---
PATIENT TRANSFERRED TO TELEMETRY. PATIENT ALERT, ON ROOM AIR SO2 96% NOT ON RESPIRATORY DISTRESS, SINUS RHYTHM. BEDSIDE REPORT GIVEN TO RECEIVING RN. BELONGINGS WITH PATIENT
--- NOTE | 2018-11-21 15:30 | NUR ---
RECEIVED PT TRANSFER FROM ICU FROM ICU NURSEOSEI FOR CONTINUITY OF CARE, ADMITTED TO TELE, PT IS AWAKE AND ALERT AND NON-AMBULATORY, GARBLED SPEECH, FALL RISK, FALL PRECAUTION INITIATED, PT WAS MADE COMFORTABLE ON THE BED, SIDE RAILS ARE UP AND CALL LIGHT WITHIN REACH, BED ALARM ACTIVATED, PT HAS A PICC LINE ON THE LEFT UPPER ARM, DOUBLE LUMEN, WITH POTASSIUM PHOSPHATE AT 42.5 ML/HR, INFUSING, INTACT, VITAL SIGNS CHECKED DONE AND BP IS 157/65, TEMPERATURE IS 97.9, PULSE IS 64, O2 SATURATION IS 100%, PT DENIES PAIN AND NO SIGN OF DISTRESS NOTED AND WILL CONTINUE TO MONITOR PT.
--- NOTE | 2018-11-21 16:32 | NUR ---
PT IS AWAKE AND BLOOD GLUCOSE CHECKED DONE RESULT IS 129 AND NO INSULIN COVERAGE NEEDED. WILL MONITOR PT.
--- NOTE | 2018-11-21 17:17 | NUR ---
PT IS AWAKE AND VITAL SIGNS CHECKED DONE, BP IS 157/70, PULSE IS 65, O2 SATURATION IS 100%, RESPIRATION IS 18/MIN. ORAL MEDICATIONS GIVEN, CRUSHED AND GAVE WITH THE APPLE SAUCE, WITH ASPIRATION PRECAUTION, NO SIGN OF DISTRESS NOTED AND WILL MONITOR THE PT.
--- NOTE | 2018-11-21 19:30 | NUR ---
RECEIVED PATIENT AWAKE LYING ON BED. HOB ELEVATED, WITH FC IN PLACE DRAINING YELLOW URINE. SEIZURES/FALL PRECAUTION APPLIED. RESPIRATION EVEN AND UNLABORED. EXPLAINED PLAN OF CARE. HEEL PROTECTOR IN PLACE.CALL LIGHT WITHIN REACH. WILL CONTINUE TO MONITOR.
--- NOTE | 2018-11-21 19:30 | NUR ---
ENDORSED PT TO ENRICHMENT TEACHER NURSE BETHANY FOR CONTINUITY OF CARE. PT IS STABLE AT THIS TIME.
--- NOTE | 2018-11-21 20:00 | NUR ---
V/S TAKEN AND RECORDED. BS 186 WITH COVERAGE. NO S/S OF DISTRESS NOTED.
[2018-11-21] MEDS: SIMVASTATIN 20 MG TAB PO SCH (20:45)
--- NOTE | 2018-11-21 21:00 | NUR ---
SCHEDULE MEDICATION GIVEN TOLERATED WELL. REPOSITIONED PATIENT AND HOB ELEVATED. FALL/SEIZURES PRECAUTION APPLIED. NO S/S OF DISTRESS NOTED AT THIS TIME. GORDON CATHETER DRAINING WELL WITH CLEAR, YELLOW URINE.WILL CONTINUE TO MONITOR.
--- NOTE | 2018-11-21 22:40 | NUR ---
PATIENT TRANSFERRED TO WOUND BED . HOB ELEVATED.
[2018-11-22] VITALS: BP 151/71
--- NOTE | 2018-11-22 | NUR ---
SCHEDULE MEDICATION GIVEN. V/S TAKEN AND RECORDED. HOB ELEVATED. FALL/SEIZURES PRECAUTION APPLIED. NO S/S OF DISTRESS NOTED. WILL CONTINUE TO MONITOR.
[2018-11-22] MEDS: MILD SOAP AND WATER TP SCH ×2 (01:05→13:23)
[2018-11-22] MEDS: HYDRAGUARD CREAM TP SCH ×2 (01:05→13:22)
--- NOTE | 2018-11-22 02:00 | NUR ---
PATIENT SEEN RESTING IN BED WITH HOB ELEVATED. CALL LIGHT WITHIN REACH. NO S/S OF DISTRESS NOTED. TURNED AND REPOSITIONED. FALL PRECAUTION APPLIED. WILL CONTINUE TO MONITOR.
[2018-11-22 04:00] VITALS: BP 133/67
--- NOTE | 2018-11-22 04:00 | NUR ---
AM CARE DONE. HYDRAGUARD APPLIED TO PERINEAL AND GROIN AREA. HOB ELEVATED. CALL LIGHT WITHIN REACH.
[2018-11-22] MEDS: LEVOTHYROXINE 0.075 MG TAB PO SCH (05:47)
[2018-11-22] MEDS: DILTIAZEM 60 MG TAB PO SCH ×2 (05:47→11:44)
[2018-11-22] MEDS: BLOOD GLUCOSE MONITORING 1 DEV DEV FS SCH ×3 (06:30→16:36)
[2018-11-22] MEDS: INSULIN LISPRO SLIDING SCALE 100 UNITS/ML VIAL SUBQ PRN ×3 (06:33→16:32)
--- NOTE | 2018-11-22 07:20 | NUR ---
GAVE REPORT TO AM SHIFT RN AT BEDSIDE. CALL LIGHT WITHIN REACH. ALL NEEDS ATTENDED. PATIENT IN STABLE CONDITION.
--- NOTE | 2018-11-22 07:22 | NUR ---
RECEIVED BEDSIDE REPORT FROM MILK OF LIME SLAKER NURSE. PATIENT IS AOX2, TO NAME AND DATE. DENIES PAIN. RA. RESPIRATION ASYMMETRICAL AND UNLABORED. NO SIGNS OF DISTRESS NOTED. SKIN CLEAN AND DRY. DRESSING ON L HEEL NOTED, CLEAN AND DRY. HEEL WEDGES IN PLACE. DANNI PICC DOUBLE LUMEN NOTED, FLUSHED, PATENT AND INTACT, INFUSING PER MD ORDER. GORDON CATHETER IN PLACE, DRAINING YELLOW URINE. PILLOWS ARE USED TO LOAD PRESSURE FROM PRESSURE AREAS. SEIZURES PRECAUTION AND FALL PRECAUTION APPLIED. DISCUSSED PLAN OF CARE WITH PATIENT, AND PATIENT NODDED HER HEAD. BED IN LOW POSITION, AND CALL LIGHT WITHIN REACH.
[2018-11-22 07:31] LABS: BASOPHILS % (AUTO) 0.6 % (0.0-2.0); EOSINOPHILS # (AUTO) 0.3 K/uL (0-0.4); EOSINOPHILS % (AUTO) 5.3 % (0.0-4.0); HEMATOCRIT 35.8 % (36-48); HEMOGLOBIN 11.6 g/dL (12.0-16.0); LYMPHOCYTES # (AUTO) 1.4 K/uL (2.5-16.5); MEAN CORPUSCULAR HEMOGLOBIN 31 pg (27-31); MEAN CORPUSCULAR HGB CONC 33 g/dL (33-37); MEAN CORPUSCULAR VOLUME 95.8 fL (80-94); MONOCYTES # (AUTO) 0.4 K/uL (0.8-1.0); MONOCYTES % (AUTO) 7.6 % (1.7-9.3); NEUTROPHILS # (AUTO) 2.9 K/uL (1.8-7.7); NEUTROPHILS % (AUTO) 57.5 % (42.2-75.2); PLATELET COUNT (AUTO) 155 K/uL (140-450); RED BLOOD CELL COUNT(AUTO) 3.74 MIL/uL (4.20-5.40)
[2018-11-22 08:00] VITALS: BP 140/86
[2018-11-22 08:08] LABS: ALBUMIN 2.2 g/dL (3.4-5.0); ANION GAP 12.9 (8-16); CARBON DIOXIDE 25.6 mmol/L (21-32); CREATININE 0.7 mg/dL (0.6-1.3); PHOSPHORUS 3.4 mg/dL (2.5-4.9); POTASSIUM 4.5 mmol/L (3.5-5.1); TOTAL BILIRUBIN 0.4 mg/dL (0.0-1.0)
--- NOTE | 2018-11-22 09:08 | NUR ---
ASSISTED STRUCTURAL METAL WORKER TO REPOSITION PATIENT TO HER LEFT SIDE AND OFF LOADED PRESSURES WITH PILLOWS AND HEEL WEDGES. PATIENT WAS PLACE IN A COMFORT POSITION. PATIENT TOLERATED WELL. DENIES PAIN. NO SIGNS OF DISTRESS NOTED.
[2018-11-22] MEDS: MEROPENEM 500 MG in NACL 0.9% 50 ML IV SCH (09:25)
[2018-11-22] MEDS: POLYETHYLENE GLYCOL 17 GM/PKT PO SCH (10:00)
[2018-11-22] MEDS ORDERED: VANCOMYCIN 1,250 MG in DEXTROSE 5% 250 ML IV SCH (10:00)
[2018-11-22] MEDS: ECOTRIN 81 MG TABEC PO SCH (10:00)
[2018-11-22] MEDS: LACTOBACILLUS RHAMNOSUS GG 1 EACH CAP PO SCH ×3 (10:00→17:26)
[2018-11-22] MEDS: METOPROLOL 50 MG TAB PO SCH (10:01)
[2018-11-22] MEDS: ASCORBIC ACID 500 MG TAB PO SCH (10:01)
[2018-11-22] MEDS: carBAMazepine 200 MG TAB PO SCH (10:01)
[2018-11-22] MEDS: MULTIVITAMIN 1 TAB PO SCH (10:01)
[2018-11-22] MEDS: DIVALPROEX SPRINKLES 125 MG CAPDR PO SCH (10:02)
[2018-11-22] MEDS: KETOCONAZOLE 2% 15 GM TUBE TP SCH (10:02)
[2018-11-22] MEDS: PANTOPRAZOLE 40 MG TABEC PO SCH (10:02)
[2018-11-22] MEDS: INSULIN NPH HUMAN ISOPHANE 100 UNIT/ML VIAL SUBQ SCH (10:05)
--- NOTE | 2018-11-22 10:49 | NUR ---
SPOKE WITH JOHN FROM [facility] AND FAXED INFORMATION TO HER. INFORMED HER NO DISCHARGE DATE YET. FAXED TO [phone] PHONE [phone]
--- NOTE | 2018-11-22 11:20 | NUR ---
REPOSITIONED PATIENT TO HER RIGHT SIDE. OFF LOADED PRESSURE WITH PILLOWS AND HEEL WEDGES. PATIENT TOLERATED WELL. DENIED PAIN. NO SIGNS OF DISTRESS NOTE.
[2018-11-22] MEDS: DEXT 5% / NACL 0.2% 1,000 ML IV SCH (11:50)
--- NOTE | 2018-11-22 11:56 | NUR ---
PATIENT IS EATING LUNCH ON BED WITH ASSISTANCE FROM ALKYLATION OPERATOR. NO SIGNS OF DISTRESS NOTED.
[2018-11-22 12:00] VITALS: BP 141/60
--- NOTE | 2018-11-22 13:18 | NUR ---
CLEANSED WOUNDS WITH NS AND PAD DRY. APPLIED THERAHONEY AND OPTIFOAM DRESSING TO L HEEL WOUND. PATIENT TOLERATED WELL. OFF LOADED PRESSURES USING HEEL WEDGES. OFF LOAD PRESSURES FROM PRESSURE AREAS WITH PILLOWS.
[2018-11-22] MEDS: THERAHONEY GEL 42.5 GM TP SCH (13:22)
[2018-11-22] MEDS: WOUND CARE PREPARATION 178 ML SPR TP SCH (13:23)
[2018-11-22] MEDS: COMPOSITE DRESSING TP SCH (13:23)
[2018-11-22] MEDS ORDERED: DIVA125E11 PO (14:36)
[2018-11-22] MEDS ORDERED: DILT60TA94 PO (14:36)
[2018-11-22] MEDS ORDERED: METO50TA99 PO (14:36)
--- NOTE | 2018-11-22 15:20 | NUR ---
PATIENT IS SLEEPING ON BED AT THIS TIME. NO SIGNS OF DISTRESS NOTED. SAFETY MEASURES IN PLACE.
--- NOTE | 2018-11-22 15:37 | NUR ---
SPOKE WITH JOHN FROM [facility]. FAXED ORDER TO HER. SHE SAID THE PATIENT CAN GO TO ROOM 17D UNDER DR. Good MELLO. INFORMED MICHAEL LEALLEAD SUPPLY WORKER NURSE. SHE WILL ARRANGE TRANSPORT.
[2018-11-22 16:00] VITALS: BP 115/64
--- NOTE | 2018-11-22 16:37 | NUR ---
CALLED [facility] AND GAVE REPORT TO FEMI White RN THAT PATIENT WILL BE TRANSFERRED THERE. PER FEMI, THEY WILL PREPARED THE ROOM READY FOR PATIENT.
--- NOTE | 2018-11-22 16:43 | NUR ---
CALLED [employer] [employer] AND NOTIFIED THAT PATIENT WILL BE TRANSFERRED TO [facility] TODAY. LEOBARDO WAS AWARE OF THE TRANSFER.
--- NOTE | 2018-11-22 17:10 | NUR ---
PATIENT CHANGED INTO [place]. WOUNDS PICTURES TAKEN. PATIENT IS READY FOR DISCHARGE. WAITING FOR [facility]SPORTATION TO BE ARRIVAL.
--- NOTE | 2018-11-22 17:50 | NUR ---
DISCHARGE PICTURE TAKEN. DISCHARGE INSTRUCTION PROVIDED TO PATIENT. DISCHARGE PACKET HANDED TO [employer] FROM [facility]. EDUCATED PATIENT ON MEDICATION REGIMEN, SIDE EFFECTS, DISEASE MANAGEMENT, SIGNS AND SYMPTOMS, WOUND CARE EDUCATION. REINFORCEMENT NEEDED. REMOVED ALL ARM BANDS FROM PATIENT. PATIENT TOOK ALL BELONGINGS. PATIENT TRANSFERRED IN [facility]. PATIENT DISCHARGED IN A STABLE CONDITION. PATIENT DISCHARGED AT THIS TIME.
== END 2018-11-22 17:50 | DRG 720 ==
LOC: MED 11:09 → MIC 15:15 → MTU 11-21 15:20
PROVIDERS: ADMIT Preventive Medicine Preventive Medicine/Occupational Environmental Medicine; ATTEND Preventive Medicine Preventive Medicine/Occupational Environmental Medicine
PROC: 05HY33Z Insertion of Infusion Device into Upper Vein, Percutaneous Approach (ICD-10-PCS; principal; 2018-11-18)
DX: A41.9 Sepsis, unspecified organism (principal); I21.A1 Myocardial infarction type 2; J96.01 Acute respiratory failure with hypoxia; N17.0 Acute kidney failure with tubular necrosis; E43 Unspecified severe protein-calorie malnutrition; G93.41 Metabolic encephalopathy; E11.21 Type 2 diabetes mellitus with diabetic nephropathy; E83.39 Other disorders of phosphorus metabolism; I27.21 Secondary pulmonary arterial hypertension; I48.91 Unspecified atrial fibrillation; N18.5 Chronic kidney disease, stage 5; I13.11 Hypertensive heart and chronic kidney disease without heart failure, with stage 5 chronic kidney disease, or end stage renal disease; E86.0 Dehydration; E87.0 Hyperosmolality and hypernatremia; E83.41 Hypermagnesemia; I69.351 Hemiplegia and hemiparesis following cerebral infarction affecting right dominant side; E03.9 Hypothyroidism, unspecified; E11.22 Type 2 diabetes mellitus with diabetic chronic kidney disease; E78.5 Hyperlipidemia, unspecified; G40.909 Epilepsy, unspecified, not intractable, without status epilepticus; E11.69 Type 2 diabetes mellitus with other specified complication; L89.629 Pressure ulcer of left heel, unspecified stage; E87.8 Other disorders of electrolyte and fluid balance, not elsewhere classified; K21.9 Gastro-esophageal reflux disease without esophagitis; D64.9 Anemia, unspecified; E83.52 Hypercalcemia; F79 Unspecified intellectual disabilities; K80.20 Calculus of gallbladder without cholecystitis without obstruction; E11.65 Type 2 diabetes mellitus with hyperglycemia; T36.8X1A Poisoning by other systemic antibiotics, accidental (unintentional), initial encounter; M86.18 Other acute osteomyelitis, other site; Z79.4 Long term (current) use of insulin; Z79.899 Other long term (current) drug therapy; Z79.82 Long term (current) use of aspirin; Y92.89 Other specified places as the place of occurrence of the external cause; Z68.34 Body mass index [BMI] 34.0-34.9, adult
CPT/HCPCS: 36415; 36600; 70450; 71045; 76770; 80048; 80053; 80202; 81001; 82009; 82140; 82550; 82553; 82803; 82948; 83036; 83605; 83735; 83874; 84100; 84300; 84484; 84550; 85025; 85610; 85651; 85730; 86140; 87040; 87070; 87081; 87086; 87804; 92610; 93005; 96365; 96372; 96375; 99285; J0360; J1644; J1815; J2185; J2543; J3370; J3411; J3490; J7030; J7060; Q0092

== ENCOUNTER 2019-08-06 15:17 | Inpatient (IN) | payer MEDICAID, MEDICARE ==
[~2019-08-06] VITALS: Ht 162.6 cm; Wt 90.3 kg
--- NOTE | 2019-08-06 | NUR ---
VITAL SIGNS STABLE. REPOSITIONED. NO COMPLAINS. CALL LIGHT WITHIN REACH. SCD APPLIED TO BOTH LE. ELEVATED WITH PILLOWS. Addendum: 08/07/19 at 0114 by Frances Enciso RN NO COMPLAINS. CALL LIGHT WITHIN REACH. VITAL SIGNS STABLE.
[~2019-08-06 15:17] MED LIST changes: -CLIN300C2 PO; +DILT60TA94 PO; +DIVA125E11 PO; -GLU1I IM; +GLUC1VIA IM; -LEVO750T51 PO; -MER500I IV; +MERO500V13 IV; +METO50TA99 PO
[2019-08-06 15:18] VITALS: BP 139/103
--- NOTE | 2019-08-06 15:30 | NUR ---
BIBA FROM [facility] FOR WORSENING PRESSURE ULCER ON RT BUTTOCK X 1 WEEK. PT AT BASELINE: A&O X1. GCS 13: E4, M5, V4. PT HAS SLURRED SPEECH FROM HX CVA. ALSO NOTED WITH OPEN WOUND ON LEFT HEEL. VSS; BEDRAILS UP X2; ERMD TO EVALUATE PAITENT. ALLERGIES: NKA MED HX: CVA, HTN, DM, ANEMIA, GERD, AND SEIZURES.
[2019-08-06] MEDS ORDERED: ACET-2619 PO (15:40)
--- NOTE | 2019-08-06 15:45 | NUR ---
LINK AND LINK KNITTING MACHINE OPERATOR BAUTISTA AND DR. CERDA EVALUATING PT'S WOUNDS AT BEDSIDE. PHOTOS TAKEN.
--- NOTE | 2019-08-06 15:50 | NUR ---
# 16 FR Silverman catheter with UROMETER INSERTED utilizing sterile technique. Immediate return of 60 ml YELLOW urine noted. Bedside drainage bag placed below level of bladder. Urine sample collected and sent to lab. Pt tolerated procedure WELL.
--- NOTE | 2019-08-06 15:52 | NUR ---
PER DR. CERDA'S REQUEST ASSESSMENT TO MULTIPLE PRESSURE INJURIES DONE. PRELIMINARY REPORT FOLLOW: 1. SACRALCOCCYX PRESSURE ULCER STAGE1 2. RIGHT BUTTOCK PRESSURE ULCER UNSTAGEABLE WOUND BED WITH 90% SOFT DARK BROWN/BLACK SLOUGH AND 10% GRANULATION TISSUE, SURROUNDING PURPLE/ REDNESS TISSUE INDICATED FURTHER DAMAGE. 3.LEFT HEEL STAGE 4 PRESSURE ULCER WOUND BED 100% GRANULATING TISSUE WITH DTI TO ASH WOUND SKIN. 4. RIGHT MEDIAL HEEL DTI. 5. MAD TO PERINEUM,SKIN MOIST WITH REDNESS
--- NOTE | 2019-08-06 16:31 | NUR ---
PHLEB AT BEDSIDE
--- NOTE | 2019-08-06 16:44 | NUR ---
XRAY AT BEDSIDE
[2019-08-06 17:20] LABS: BASOPHILS # (AUTO) 0.1 K/uL (0.00-0.22); BASOPHILS % (AUTO) 0.8 % (0.0-2.0); EOSINOPHILS # (AUTO) 0.2 K/uL (0-0.4); EOSINOPHILS % (AUTO) 3.1 % (0.0-4.0); HEMATOCRIT 34.7 % (36-48); HEMOGLOBIN 11.4 g/dL (12.0-16.0); LYMPHOCYTES % (AUTO) 26.3 % (20.5-51.1); MEAN CORPUSCULAR HEMOGLOBIN 32 pg (27-31); MEAN CORPUSCULAR HGB CONC 33 g/dL (33-37); MEAN CORPUSCULAR VOLUME 97.2 fL (80-94); MONOCYTES # (AUTO) 0.7 K/uL (0.8-1.0); MONOCYTES % (AUTO) 9.6 % (1.7-9.3); NEUTROPHILS # (AUTO) 4.5 K/uL (1.8-7.7); NEUTROPHILS % (AUTO) 60.2 % (42.2-75.2); PLATELET COUNT (AUTO) 225 K/uL (140-450); RED BLOOD CELL COUNT(AUTO) 3.58 MIL/uL (4.20-5.40); RED CELL DISTRIBUTION WIDTH 13.9 % (11.6-13.7); WHITE BLOOD COUNT (AUTO) 7.5 K/uL (4.8-10.8)
[2019-08-06 17:34] LABS: APPEARANCE,URINE CLEAR (CLEAR); BILIRUBIN,URINE NEGATIVE (NEGATIVE); BLOOD, URINE NEGATIVE (NEGATIVE); COLOR,URINE YELLOW (YELLOW); LEUKOCYTE ESTERASE ,URINE TRACE (NEGATIVE); NITRITE, URINE POSITIVE (NEGATIVE); PH,URINE 6.5 (5.0-9.0); UGLUCOSE 3+ (NEGATIVE)
[2019-08-06 17:36] LABS: RBC,URINE 0-5 /HPF (0-5)
[2019-08-06 17:52] LABS: PROTHROMBIN TIME 8.8 secs (10.8-13.4)
[2019-08-06 18:17] LABS: ALBUMIN 2.6 g/dL (3.4-5.0); ANION GAP 13.7 (8-16); CARBON DIOXIDE 30.7 mmol/L (21-32); POTASSIUM 4.4 mmol/L (3.5-5.1); TOTAL BILIRUBIN 0.2 mg/dL (0.0-1.0)
--- NOTE | 2019-08-06 18:20 | NUR ---
RECEIVED PT FROM ED NURSE NINI. PT IS AWAKE BUT CONFUSED. ELECTRICIAN HELPER AUTOMOTIVE IS AT THE BEDSIDE. TWO IV SITES NOTED L THUMB 24 G, AND R AC 22 G. MRSA NARES SWAB TAKEN. VS ARE STABLE. ON ROOM AIR, NO S/S OF SOB. R BUTTOCK AND L HEELS WOUNDS COVERED WITH OPTIFOAM. THERE IS REDNESS NOTED ON THE R HEEL, BUT NO OPEN SKIN. FALL PRECAUTIONS PUT IN PLACE. RAILS PADDED FOR SEIZURE PRECAUTIONS.
--- NOTE | 2019-08-06 18:25 | NUR ---
Patient will be admitted to care of DR MELLO. Admited to MED SURG. Will go to room 121A. Belongings list completed. Report to HARI LEAL.
--- NOTE | 2019-08-06 18:30 | NUR ---
PAGED DR Good MELLO TO REPORT PT'S BLOOD GLUCOSE OF 484, AND LACTIC ACID 2.3. AWAITING CALL BACK. Addendum: 08/06/19 at 1854 by Kelly Rodriguez RN DR MELLO CALLED BACK, TORB SLIDING SCALE INSULIN, 10 UNITS OF HUMALOG NOW, AND NS 100 ML/HR.
[2019-08-06] MEDS ORDERED: DEXTROSE 50% 50 ML SYR IVP PRN (18:55)
[2019-08-06] MEDS ORDERED: INSULIN LISPRO 100 UNITS/ML VIAL SUBQ ONE (18:55)
[2019-08-06 19:06] LABS: THYROID STIMULATING HORMONE 30.16 uIU/mL (0.34-3.74)
--- NOTE | 2019-08-06 19:30 | NUR ---
ADMITTED PATIENT TO 121A VIA GURNEY FROM ER FROM [facility] BO[facility] AND CARE. CC: WORSENING DECUB ULCER. SEE NURSING ADMISSION ASSESSMENT AND HISTORY. ORIENTED TO ROOM AND UNIT ROUTINES. CARE BOARD UPDATED. PLAN OF CARE DISCUSSED WITH PATIENT, NEEDS REINFORCEMENT. CALL LIGHT WITHIN REACH. PICTURES OF DECUBITUS TAKEN IN ER.
--- NOTE | 2019-08-06 19:30 | NUR ---
PT ENDORSED TO PRODUCT TESTER FIBERGLASS NURSE IN STABLE CONDITION
[2019-08-06] MEDS: NACL 0.9% 1,000 ML IV SCH (20:12)
[2019-08-06] MEDS: BLOOD GLUCOSE MONITORING 1 DEV DEV FS SCH (20:48)
[2019-08-06] MEDS: INSULIN LISPRO SLIDING SCALE 100 UNITS/ML VIAL SUBQ PRN (20:51)
--- NOTE | 2019-08-06 21:00 | NUR ---
BLOOD SUGAR DONE AND HUMALOG PER SLIDING SCALE. CALL LIGHT WITHIN REACH.
[2019-08-06] MEDS ORDERED: guaiFENesin 20 MG/ML UDC PO PRN (21:45)
[2019-08-06] MEDS ORDERED: ACETAMINOPHEN 325 MG TAB PO PRN (21:45)
[2019-08-06] MEDS ORDERED: HYDROcodone/APAP 5/325 MG 1 TAB TAB PO PRN (21:50)
[2019-08-06] MEDS ORDERED: LORazepam 2 MG/ML VIAL IVP PRN (21:50)
[2019-08-06] MEDS ORDERED: ONDANSETRON 4 MG/2 ML VIAL IVP PRN (21:50)
[2019-08-06] MEDS ORDERED: cefTRIAXone 1,000 MG VIAL ONE (22:13)
[2019-08-06] MEDS ORDERED: HYDRAGUARD CREAM TP PRN (23:35)
[2019-08-06] MEDS ORDERED: SKINTEGRITY HYDROGEL TP PRN (23:35)
[2019-08-06] MEDS ORDERED: MILD SOAP AND WATER TP PRN (23:35)
[2019-08-06] MEDS ORDERED: COMPOSITE DRESSING TP PRN (23:35)
[2019-08-06] MEDS ORDERED: NACL 0.9% IRR 250 ML BOTTLE IR PRN (23:35)
--- NOTE | 2019-08-07 | NUR ---
VITAL SIGNS STABLE. NO COMPLAINS. AFEBRILE. REPOSITIONED WITH FIREMAN. SCD APPLIED BLE. CALL LIGHT WITHIN REACH.
[2019-08-07 00:10] VITALS: BP 124/59
[2019-08-07] MEDS ORDERED: VANCOMYCIN 1,000 MG VIAL ONE (00:43)
[2019-08-07] MEDS: MILD SOAP AND WATER TP SCH (00:52)
[2019-08-07] MEDS: NACL 0.9% IRR 250 ML BOTTLE IR SCH (00:52)
[2019-08-07] MEDS: SKINTEGRITY HYDROGEL TP SCH (00:52)
[2019-08-07] MEDS: HYDRAGUARD CREAM TP SCH (00:52)
[2019-08-07] MEDS: DILTIAZEM 60 MG TAB PO SCH (00:53)
[2019-08-07] MEDS ORDERED: VANCOMYCIN 1,000 MG in DEXTROSE 5% 250 ML IV SCH (01:00)
--- NOTE | 2019-08-07 02:00 | NUR ---
AWAKE. NO COMPLAINS. CALL LIGHT WITHIN REACH.
--- NOTE | 2019-08-07 04:39 | NUR ---
ASLEEP EASILY AROUSABLE. NO COMPLAINS. VITAL SIGNS STABLE. CALL LIGHT WITHIN REACH. REPOSITIONED. PERICARE DONE WITH METHODS AND PROCEDURES ANALYST.
[2019-08-07] MEDS: NACL 0.9% 1,000 ML IV SCH (04:55)
[2019-08-07] MEDS ORDERED: CARBAMAZEPINE 200 MG PO SCH (09:00)
[2019-08-07] MEDS ORDERED: CALCIUM CARBONATE 500 MG TAB ONE (17:00)
[2019-08-08] MEDS: DILTIAZEM 60 MG TAB PO SCH ×2 (01:00→18:00)
[2019-08-08] MEDS: BLOOD GLUCOSE MONITORING 1 DEV DEV FS SCH ×4 (05:57→21:00)
[2019-08-08] MEDS: metFORMIN 500 MG TAB PO SCH ×2 (08:00→17:00)
[2019-08-08] MEDS: amLODIPine 5 MG TAB PO SCH (09:00)
[2019-08-08] MEDS: POLYETHYLENE GLYCOL 17 GM/PKT PO SCH (09:00)
[2019-08-08] MEDS: SIMVASTATIN 20 MG TAB PO SCH (09:00)
[2019-08-08] MEDS: FUROSEMIDE 40 MG TAB PO SCH ×2 (09:00→17:00)
--- NOTE | 2019-08-08 10:05 | NUR ---
WOUND CARE EVALUATION NOTE: REASON FOR EVALUATION: MULTIPLE WOUNDS SKIN ASSESSMENT DONE WITH THIS 69Y/O FEMALE PT. ADMITTED FROM SNF TO [facility] WITH INITIAL DX OF WORSEN PRESSURE ULCER. PAST MEDICAL HX INCLUDES CVA RIGHT SIDE WEAKNESS, HTN, DM , HX OF PRESSURE ULCERS AND GERD. PT. ADMITTED WITH MULTIPLE PRESSURE ULCERS. PT IS AWAKE, SKIN IS WARM AND DRY, BLE NO HAIR GROWTH, DORSAL PEDAL PULSES PRESENT FUNGAL NAILS X [address]ES[address] F/C IN PLACE, CLEAR YELLOW COLOR OF MODERATE AMOUNT URINE OUTPUT. PLAN OF CARE DISCUSSED WITH PRIMARY RN AND PT. AND PT VERBALIZES UNDERSTANDING. INTEGUMENTARY: -SACRALCOCCYX PRESSURE ULCER STAGE 1 WITH SURROUNDING SKIN DENUDED AND DEFUSED TO RIGHT INNER BUTTOCK -RIGHT INNER BUTTOCK PRESSURE ULCER UN-STAGEABLE 6X6 CM DEPTH UTD, WOUND BED WITH 90% SOFT DARK BROWN/BLACK SLOUGH AND 10% GRANULATION TISSUE, SURROUNDING PURPLE/ REDNESS TISSUE DEFUSED TO SACRAL COCCYX INDICATED FURTHER DAMAGE. -LEFT HEEL STAGE 4 PRESSURE ULCER 5X2X0.1CM, WOUND BED 100% GRANULATING TISSUE WITH DTI TO ASH WOUND SKIN. - RIGHT MEDIAL HEEL PRESSURE ULCER DTI WITH 1X1CM 100% MAROON COLOR -MAD TO PERINEUM, SKIN MOIST WITH REDNESS -PRESSURE INJURY UN-STAGEABLE TO LEFT HEEL 3.5X5CM WITH 30% BROWN SOFT SLOUGH AND 70% RECOMMENDATIONS: -SURGEON CONSULT FOR SACRALCOCCYX DEBRIDEMENT -CLEANSE RIGHT INNER BUTTOCK AND LEFT HEEL ULCERS WITH WOUND CLEANSING SOLUTION AND APPLY THERAHONEY DRESSING SHEET, COVER WITH DRY ISLAND DRESSING [id number] AND PRN IF SOILING -CLEANSE PERINEUM MAD WITH SOAP AND WATER, PAT DRY, APPLY HYDRAGUARD BID AND PRN IF SOILING -APPLY OPTIFORM TO RIGHT HEEL AND CHANGE Q5D AND PRN IF DISLODGED -KEEP SKIN DRY AND CLEAN AT ALL TIMES -OFFLOAD BILATERAL HEELS BY PLACING PILLOWS UNDER CALVES UNLESS OTHERWISE CONTRAINDICATED -HEEL RAISERS TO BILATERAL HEELS AT ALL TIMES -PRESSURE REDISTRIBUTION SURFACE THERAPY -TURN AND REPOSITION Q2H, OFFLOAD SACRALCOCCYX BY TURNING RIGHT AND LEFT -MONITOR SKIN CONDITION EACH TIME PT IS REPOSITIONS -CONTINUE TO FOLLOW RD RECOMMENDATIONS ALL ABOVE RECOMMENDATIONS DISCUSSED WITH PRIMARY RN WILL FOLLOW UP PT Q7-10 DAYS. PLEASE CONTACT WOUND CARE NURSE FOR ANY QUESTION AND CHANGE OF WOUND CONDITION.
--- NOTE | 2019-08-08 19:25 | NUR ---
RECEIVED PT FROM DAY SHIFT NURSE. PT IS AWAKE BUT CONFUSED. NO SOB OR ANY RESPIRATORY DISTRESS NOTED. IV SITES NOTED ON LFA 22G, PATENT, INTACT, AND ASYMPTOMATIC. PRESSURE ULCER NOTED ON R BUTTOCK AREA AND L HEEL. CONTACT PRECAUTION IN PLACE D/T MRSA NARES. THERE IS REDNESS NOTED ON THE R HEEL, BUT NO OPEN SKIN. FALL PRECAUTIONS IN PLACE. RAILS PADDED FOR SEIZURE PRECAUTIONS. BED IN LOW POSITION, CALL LIGHT WITHIN REACH.
[2019-08-08 20:11] LABS: ANION GAP 11.5 (8-16); CARBON DIOXIDE 30.3 mmol/L (21-32); CREATININE 0.7 mg/dL (0.6-1.3); POTASSIUM 3.8 mmol/L (3.5-5.1)
--- NOTE | 2019-08-08 20:30 | NUR ---
BS CHECKED, 262, ADMINISTERED INSULIN SLIDING SCALE. PT TOLERATED WELL.
[2019-08-08] MEDS: NACL 0.9% 1,000 ML IV SCH ×2 (20:55→23:00)
[2019-08-08] MEDS: carBAMazepine 200 MG TAB PO SCH ×2 (21:00→23:11)
[2019-08-08] MEDS: METOPROLOL 50 MG TAB PO SCH ×2 (21:00→22:00)
[2019-08-08] MEDS: DIVALPROEX 500 MG TABER PO SCH ×2 (21:00→22:00)
[2019-08-08] MEDS: LISINOPRIL 20 MG TAB PO SCH ×2 (21:00→22:00)
--- NOTE | 2019-08-08 21:12 | NUR ---
HELD LOPRESSOR AND ZESTRIL D/T DECREASED BP. DEPAKOTE NOT GIVEN D/T MED NOT AVAILABLE.
--- NOTE | 2019-08-08 22:46 | NUR ---
GIVEN ROCEPHIN MD ORDERED. PT TOLERATED WELL.
[2019-08-08] MEDS ORDERED: carBAMazepine 200 MG TAB ONE (23:01)
--- NOTE | 2019-08-08 23:11 | NUR ---
GIVEN TEGRETOL LATE D/T NETWORK DOWN. PT TOLERATED WELL.
[2019-08-09] VITALS: BP 156/57
[2019-08-09] MEDS: SKINTEGRITY HYDROGEL TP SCH ×2 (01:00→13:50)
[2019-08-09] MEDS: MILD SOAP AND WATER TP SCH ×2 (01:00→13:50)
[2019-08-09] MEDS: NACL 0.9% IRR 250 ML BOTTLE IR SCH ×2 (01:00→13:48)
[2019-08-09] MEDS: HYDRAGUARD CREAM TP SCH ×2 (01:00→13:49)
[2019-08-09] MEDS: COMPOSITE DRESSING TP SCH ×2 (01:00→13:49)
--- NOTE | 2019-08-09 01:00 | NUR ---
GIVEN CARDIZEM MD ORDERED. PT TOLERATED WELL.
[2019-08-09] MEDS ORDERED: DILTIAZEM 60 MG TAB ONE ×2 (01:11→04:34)
--- NOTE | 2019-08-09 03:00 | NUR ---
PT SLEEPING IN BED. NO ACUTE DISTRESS NOTED.
[2019-08-09] MEDS: DILTIAZEM 60 MG TAB PO SCH ×5 (05:06→17:48)
--- NOTE | 2019-08-09 05:06 | NUR ---
GIVEN CARDIZEM MD ORDERED. PT TOLERATED WELL.
[2019-08-09] MEDS: INSULIN LISPRO SLIDING SCALE 100 UNITS/ML VIAL SUBQ PRN ×5 (06:00→21:15)
--- NOTE | 2019-08-09 06:00 | NUR ---
BS CHECKED, 187. ADMINISTERED INSULIN SLIDING SCALE. PT TOLERATED WELL.
--- NOTE | 2019-08-09 06:54 | NUR ---
PT LYING IN THE BED. NO ACUTE DISTRESS NOTED. PT IN STABLE CONDITION.
[2019-08-09] MEDS: BLOOD GLUCOSE MONITORING 1 DEV DEV FS SCH ×4 (07:30→21:08)
[2019-08-09 08:00] VITALS: BP 149/86
[2019-08-09] MEDS: NACL 0.9% 1,000 ML IV SCH ×2 (08:41→17:47)
[2019-08-09] MEDS: POLYETHYLENE GLYCOL 17 GM/PKT PO SCH (08:46)
[2019-08-09] MEDS: SIMVASTATIN 20 MG TAB PO SCH (08:47)
[2019-08-09] MEDS: metFORMIN 500 MG TAB PO SCH ×2 (08:47→17:47)
[2019-08-09] MEDS: FUROSEMIDE 40 MG TAB PO SCH ×2 (08:57→17:47)
[2019-08-09] MEDS: amLODIPine 5 MG TAB PO SCH (08:57)
[2019-08-09] MEDS: METOPROLOL 50 MG TAB PO SCH ×2 (08:58→21:09)
[2019-08-09] MEDS: DIVALPROEX 500 MG TABEC PO SCH ×2 (09:00→21:08)
[2019-08-09] MEDS: carBAMazepine 200 MG TAB PO SCH ×2 (10:15→21:09)
[2019-08-09] MEDS: LISINOPRIL 20 MG TAB PO SCH ×2 (10:15→21:14)
[2019-08-09] MEDS: MUPIROCIN CA NASAL 2% 1GM TUBE NS SCH (10:15)
[2019-08-09] MEDS: CHLORHEXADINE GLUC 2% CLOTH TP SCH (10:16)
--- NOTE | 2019-08-09 10:16 | NUR ---
DC PLANNING 69 YRS OLD FEMALE ADMITTED FROM [facility] WITH A DX OF DECUBITUS ULCER. PT HAS A HX OF MENTALLY CHALLENGE , CVA HTN SEIZURE AND SACRAL PRESSURE ULCER. PER DR OLIVERA ORDER CONSENT FROM [facility], CONTACTED [facility] [phone] SPOKE WITH FROYLAN STATED SINCE IT IS A WEEKEND NO ONE IS HERE TO GIVE CONSENT BUT 2 DRS CAN SIGN THE CONSENT TO DO THE PROCEDURE . NOTIFIED DR OLIVERA AND DR MELLO . DR MELLO SIGNED THE CONSENT. NOTIFIED JESSICA LEAL . CM TO FOLLOW Addendum: 08/11/19 at 1316 by Diane Moore CM DC PLANNING PT IS HAVING THE PROCEDURE DEBRIDEMENT OF SACRAL WOUND BY DR OLIVERA ,CONTINUE IV VANCOMYCIN . DC PLAN TO GO BACK TO [facility] . CM TO FOLLOW. Addendum: 08/12/19 at 1223 by Diane Moore CM DC PLANNING: PT HAS A DC ORDER TO GO TO SNF FOR IV ABX. CALLED [facility] SPOKE WITH NIURKA NEWSOME STATED THEY DON'T GIVE IV ABX REFEREED ME TO JOSE THE RN [phone] AND LEFT A MESSAGE THAT WE ARE LOOKING FOR A SNF FOR IV ABX. CALLED [facility] CM KATIUSKA OSORIO CELL [phone] AND OFFICE [phone] LEFT A MESSAGE THAT ANY PREFERABLE SNF FOR PATIENT. CM TO FOLLOW. Addendum: 08/12/19 at 1648 by Diane Moore CM DC PLANNING PT IS ACCEPTED AT [facility] ROOM 105B # TO GIVE REPORT [phone] ARRANGED TRANSPORT WITH [facility] RN TIME 5PM PER EDGAR (VIOLIN MECHANIC) TRANSPORT [facility]
[2019-08-09 10:26] LABS: BASOPHILS % (AUTO) 0.4 % (0.0-2.0); EOSINOPHILS # (AUTO) 0.2 K/uL (0-0.4); EOSINOPHILS % (AUTO) 3.2 % (0.0-4.0); HEMATOCRIT 31.5 % (36-48); HEMOGLOBIN 10.4 g/dL (12.0-16.0); LYMPHOCYTES # (AUTO) 1.4 K/uL (2.5-16.5); LYMPHOCYTES % (AUTO) 24.1 % (20.5-51.1); MEAN CORPUSCULAR HEMOGLOBIN 32 pg (27-31); MEAN CORPUSCULAR HGB CONC 33 g/dL (33-37); MEAN CORPUSCULAR VOLUME 97.6 fL (80-94); MONOCYTES # (AUTO) 0.5 K/uL (0.8-1.0); MONOCYTES % (AUTO) 8.3 % (1.7-9.3); NEUTROPHILS # (AUTO) 3.7 K/uL (1.8-7.7); PLATELET COUNT (AUTO) 225 K/uL (140-450); RED BLOOD CELL COUNT(AUTO) 3.23 MIL/uL (4.20-5.40); RED CELL DISTRIBUTION WIDTH 14.1 % (11.6-13.7); WHITE BLOOD COUNT (AUTO) 5.7 K/uL (4.8-10.8)
--- NOTE | 2019-08-09 10:29 | NUR ---
DEPAKOTE 500MG PO TABLET WAS GIVEN TO PT, CRUSHED, CALLED PHARMACY BECAUSE IT CANNOT BE SCANNED IN THE EMAR BUT PHARMACIST SAID TO GIVE IT, PT TOLERATED IT. WILL MONITOR PT.
[2019-08-09 10:40] LABS: BASOPHILS % (AUTO) 0.4 % (0.0-2.0); EOSINOPHILS # (AUTO) 0.2 K/uL (0-0.4); HEMATOCRIT 31.6 % (36-48); HEMOGLOBIN 10.3 g/dL (12.0-16.0); LYMPHOCYTES # (AUTO) 2.3 K/uL (2.5-16.5); LYMPHOCYTES % (AUTO) 28.7 % (20.5-51.1); MEAN CORPUSCULAR HEMOGLOBIN 32 pg (27-31); MEAN CORPUSCULAR HGB CONC 33 g/dL (33-37); MONOCYTES # (AUTO) 0.8 K/uL (0.8-1.0); MONOCYTES % (AUTO) 10.5 % (1.7-9.3); NEUTROPHILS # (AUTO) 4.5 K/uL (1.8-7.7); NEUTROPHILS % (AUTO) 57.4 % (42.2-75.2); PLATELET COUNT (AUTO) 243 K/uL (140-450); RED BLOOD CELL COUNT(AUTO) 3.26 MIL/uL (4.20-5.40); RED CELL DISTRIBUTION WIDTH 13.7 % (11.6-13.7); WHITE BLOOD COUNT (AUTO) 7.9 K/uL (4.8-10.8)
[2019-08-09 11:00] LABS: ANION GAP 12.1 (8-16); CARBON DIOXIDE 26.5 mmol/L (21-32); CREATININE 0.6 mg/dL (0.6-1.3); POTASSIUM 3.6 mmol/L (3.5-5.1)
[2019-08-09] MEDS ORDERED: VANCOMYCIN PER PHARMACY MC PRN (12:01)
[2019-08-09] MEDS ORDERED: THERAHONEY WOUND DRESSING TP PRN (13:20)
--- NOTE | 2019-08-09 13:50 | NUR ---
PT WAS GIVEN IV VANCOMYCIN NOW VIA PIGGYBACK. WILL MONITOR PT.
[2019-08-09] MEDS: VANCOMYCIN 1,000 MG in DEXTROSE 5% 250 ML IV SCH (13:51)
[2019-08-09 16:00] VITALS: BP 134/50
--- NOTE | 2019-08-09 17:55 | NUR ---
PT'S BLOOD GLUCOSE WAS CHECKED AND IS 252, 6 UNITS INSULIN WAS GIVEN ON THE RT UA PER SLIDING SCALE, ORL MEDICATIONS WERE GIVEN WELL, CRUSHED AND PT TOLERATED IT. WILL MONITOR PT.
--- NOTE | 2019-08-09 19:35 | NUR ---
RECEIVED PT IN STABLE CONDITION FROM AM NURSE. BEDREST. MED SURG PT. ON WOUND BED DUE TO DECUBITUS ULCER ON THE RT BUTTOCKS WITH DRESSING IN PLACED REDNESS ON LT HEEL WITH COMPOSITE DRESSING. . INF INFUSING WELL ON THE LT WRIST G#22. NO DISCOMFORT NOTED. BED ON LOW POSITION. SIDE RAILS UP X2. FREQ ROUNDS NEEDED. CALL LIGHT PLACED WITHIN EASY REACH. ON CONTACT ISOLATION FOR MRSA NARES. WILL CONTINUE TO MONITOR.
[2019-08-09 21:00] VITALS: BP 128/58
[2019-08-09] MEDS: CALCIUM CARBONATE 500 MG TAB PO SCH (21:09)
--- NOTE | 2019-08-09 21:15 | NUR ---
BLOOD SUGAR WAS CHECKED RESULT 189. INSULIN HUMALOG 2 UNITS SUB GIVEN ORDERED. PT HAS SOME SNACK. WILL CONTINUE TO MONITOR.
--- NOTE | 2019-08-09 23:00 | NUR ---
PT STILL AWAKE. BUT BUT NO S/S OF ANY DISCOMFORT NOTED. IVF INFUSING WELL.
[2019-08-10 00:26] VITALS: BP 120/64
[2019-08-10] MEDS: DILTIAZEM 60 MG TAB PO SCH ×4 (00:30→18:16)
[2019-08-10] MEDS: NACL 0.9% IRR 250 ML BOTTLE IR SCH ×2 (01:00→14:00)
[2019-08-10] MEDS: MILD SOAP AND WATER TP SCH ×2 (01:00→13:59)
[2019-08-10] MEDS: SKINTEGRITY HYDROGEL TP SCH ×2 (01:00→13:58)
--- NOTE | 2019-08-10 01:00 | NUR ---
PT REPOSITONED FOR COMFORT. WOUND CARE DONE. WILL CONTINUE TO MONITOR.
[2019-08-10] MEDS: VANCOMYCIN 1,000 MG in DEXTROSE 5% 250 ML IV SCH ×2 (02:06→14:41)
[2019-08-10] MEDS: HYDRAGUARD CREAM TP SCH ×2 (02:12→14:00)
[2019-08-10] MEDS: NACL 0.9% 1,000 ML IV SCH ×4 (02:55→22:55)
--- NOTE | 2019-08-10 03:00 | NUR ---
PT ASLEEP. NO S/S FO ANY DISCOMFORT NOR PAIN NOTED.
[2019-08-10] MEDS: BLOOD GLUCOSE MONITORING 1 DEV DEV FS SCH ×4 (05:45→21:28)
--- NOTE | 2019-08-10 05:45 | NUR ---
CARDIZEM PO DUE NOT GIVEN. PT REFUSED ANY PO MEDICATION AT THIS TIME. REFUSED BP TO BE CHECKED.
[2019-08-10] MEDS: INSULIN LISPRO SLIDING SCALE 100 UNITS/ML VIAL SUBQ PRN ×4 (05:55→21:31)
--- NOTE | 2019-08-10 05:55 | NUR ---
BLOOD SUGAR WAS CHECKED THIS AM RESULT 218. HUMALOG 4 UNITS GIVEN SUBQ.
--- NOTE | 2019-08-10 07:05 | NUR ---
ENDORSED PT IN STABLE CONDITION TO AM NURSE FOR CONTINUITY OF CARE.
--- NOTE | 2019-08-10 07:05 | NUR ---
RECEIVED PT FROM CHAPLAINCY NURSELIONEL, PT IS AWAKE AND LYING ON THE BED WITH SIDE RAILS UP AND CALL LIGHT WITHIN REACH, PERIPHERAL LINE ON THE LEFT HAND G. 22 WITH NS INFUSING AT 100ML/HR, GORDON CATHETER IN PLACE AND SACRAL AND LEFT HEEL ULCERS NOTED, REINFORCED WITH DRESSINGS, NO SIGN OF DISTRESS NOTED AND WILL CONTINUE TO MONITOR PT.
[2019-08-10 08:00] VITALS: BP 134/53
[2019-08-10] MEDS: CHLORHEXADINE GLUC 2% CLOTH TP SCH (09:00)
[2019-08-10 09:26] LABS: BASOPHILS % (AUTO) 0.5 % (0.0-2.0); EOSINOPHILS # (AUTO) 0.2 K/uL (0-0.4); HEMATOCRIT 31.3 % (36-48); HEMOGLOBIN 10.4 g/dL (12.0-16.0); LYMPHOCYTES # (AUTO) 1.5 K/uL (2.5-16.5); LYMPHOCYTES % (AUTO) 25.6 % (20.5-51.1); MEAN CORPUSCULAR HEMOGLOBIN 32 pg (27-31); MEAN CORPUSCULAR HGB CONC 33 g/dL (33-37); MONOCYTES # (AUTO) 0.6 K/uL (0.8-1.0); MONOCYTES % (AUTO) 10.2 % (1.7-9.3); NEUTROPHILS # (AUTO) 3.6 K/uL (1.8-7.7); NEUTROPHILS % (AUTO) 60.7 % (42.2-75.2); PLATELET COUNT (AUTO) 228 K/uL (140-450); RED BLOOD CELL COUNT(AUTO) 3.23 MIL/uL (4.20-5.40)
[2019-08-10 09:43] LABS: ANION GAP 10.4 (8-16); CARBON DIOXIDE 29.2 mmol/L (21-32); CREATININE 0.7 mg/dL (0.6-1.3); POTASSIUM 3.6 mmol/L (3.5-5.1)
[2019-08-10] MEDS: metFORMIN 500 MG TAB PO SCH ×2 (09:57→18:13)
[2019-08-10] MEDS: METOPROLOL 50 MG TAB PO SCH ×2 (09:57→21:29)
--- NOTE | 2019-08-10 09:57 | NUR ---
PT WAS GIVEN ORAL MEDICATIONS, CRUSHED AND PARAMETR CHECKED, WILL MONITOR PT.
[2019-08-10] MEDS: carBAMazepine 200 MG TAB PO SCH ×2 (09:58→21:29)
[2019-08-10] MEDS: POLYETHYLENE GLYCOL 17 GM/PKT PO SCH (09:58)
[2019-08-10] MEDS: CALCIUM CARBONATE 500 MG TAB PO SCH ×2 (09:59→21:28)
[2019-08-10] MEDS: amLODIPine 5 MG TAB PO SCH (09:59)
[2019-08-10] MEDS: LISINOPRIL 20 MG TAB PO SCH ×2 (10:00→21:29)
[2019-08-10] MEDS: DIVALPROEX 500 MG TABEC PO SCH ×2 (10:00→21:28)
[2019-08-10] MEDS: FUROSEMIDE 40 MG TAB PO SCH ×2 (10:00→18:16)
[2019-08-10] MEDS: SIMVASTATIN 20 MG TAB PO SCH (10:00)
[2019-08-10] MEDS: MUPIROCIN CA NASAL 2% 1GM TUBE NS SCH (10:01)
--- NOTE | 2019-08-10 13:15 | NUR ---
PT IS AWAKE AND WAS REPOSITIONED NOW, DRESSING CHANGE DONE.
[2019-08-10] MEDS: COMPOSITE DRESSING TP SCH (14:00)
--- NOTE | 2019-08-10 14:41 | NUR ---
VANCOMYCIN IVPB WAS GIVEN TO PT NOW, WILL MONITOR PT.
--- NOTE | 2019-08-10 15:52 | NUR ---
DR. OLIVERA ON ROUNDS, NOTIFIED THAT DR. FUNMILAYO BEAN ALREADY SIGNED THE CONSENT FOR PLANNED DEBRIDEMENT FOR PT. DR. OLIVERA ALSO SIGNED THE CONSENT WELL. NOW THERE ARE 2 PHYSICIANS SIGNATURES FOR MEDICAL NECESSITY. NO NEW ORDERS FROM DR. OLIVERA OF THIS TIME. SHELLEY ASSIGNED MADE AWARE.
[2019-08-10 16:00] VITALS: BP 153/60
--- NOTE | 2019-08-10 18:17 | NUR ---
PT WAS GIVEN MEDIATIONS CRUSHED AND GIVEN WITH A LITTLE APPLE SAUCE, INSULIN 6 UNITS WAS ALSO GIBN ON THE RT UA FOR BLOOD GLUCOSE OF 257, PT TOLERATED IT. WILL MONITOR PT.
--- NOTE | 2019-08-10 19:25 | NUR ---
ENDORSED PT TO FOREIGN TRADE TEACHER NURSE FOR CONTINUITY OF CARE.
[2019-08-10 20:30] VITALS: BP 134/69
--- NOTE | 2019-08-10 21:55 | NUR ---
DR. OLIVERA JUST CALLED AND ORDERED NPO AFTER MN FOR THE PT . CHANGE IVF TO D5NS 50 ML /HR.
--- NOTE | 2019-08-10 23:00 | NUR ---
IV ACCESS PULLED OUT. MEL MACHUCA CHARGE TRIED BUT UNABLE TO GET A VEIN. WILL TRY LATER.
[2019-08-11] VITALS: BP 140/81
--- NOTE | 2019-08-11 01:00 | NUR ---
ER NURSE CAME AND ABLE TO GET AN IV ACCESS AFTER SEVERAL ATTEMPTS. NEW ACCESS ON THE RT HAND G#22. CLEAR AND PATENT. WRAPPED WITH KERLIX TO PREVENT FROM PULLING OUT.
[2019-08-11] MEDS: NACL 0.9% IRR 250 ML BOTTLE IR SCH ×2 (01:19→13:14)
[2019-08-11] MEDS: HYDRAGUARD CREAM TP SCH ×2 (01:19→13:15)
[2019-08-11] MEDS: SKINTEGRITY HYDROGEL TP SCH (01:20)
[2019-08-11] MEDS: MILD SOAP AND WATER TP SCH ×2 (01:20→13:15)
--- NOTE | 2019-08-11 02:00 | NUR ---
MADE ROUNDS. PT ASLEEP. NO S/S OF ANY DISCOMFORT NOTED.
[2019-08-11] MEDS: VANCOMYCIN 1,000 MG in DEXTROSE 5% 250 ML IV SCH ×2 (02:28→14:00)
[2019-08-11] MEDS: BLOOD GLUCOSE MONITORING 1 DEV DEV FS SCH ×4 (05:44→20:58)
[2019-08-11] MEDS: INSULIN LISPRO SLIDING SCALE 100 UNITS/ML VIAL SUBQ PRN ×3 (05:45→22:05)
--- NOTE | 2019-08-11 05:45 | NUR ---
PT BLOOD SUGAR WAS CHECKED RESULT 225. INSULIN COVERAGE GIVEN SUBQ. PT IS ON IVF D5NS .WILL CONTINUE TO MONITOR.
[2019-08-11] MEDS: DILTIAZEM 60 MG TAB PO SCH ×4 (06:00→17:33)
--- NOTE | 2019-08-11 07:20 | NUR ---
ENDORSED PT IN STABLE CONDITION TO AM NURSE FOR CONTINUITY OF CARE.
--- NOTE | 2019-08-11 07:22 | NUR ---
RECEIVED BEDSIDE REPORT FROM MANAGER TRADING NURSE FOR CONTINUITY OF CARE. PATIENT IS ASLEEP ON BED. AROUSABLE TO VOICE. FLACC 0. RESPIRATION EVEN AND UNLABORED ON RA. NO SIGNS OF DISTRESS NOTED. IV CLEAN AND INTACT, INFUSING PER MD ORDER. WOUNDS NOTED, COVERED WITH DRESSING CLEAN AND DRY. PATIENT IS BEDREST AND INCONTINENT. GORDON IN PLACE AND DRAINING YELLOW URINE WITH GRAVITY. SAFETY MEASURES IN PLACE. FALL RISK PROTOCOL AND SEIZURE PROTOCOL IN PLACE. BED IN LOW POSITION AND CALL LIGHT WITHIN REACH.
[2019-08-11 08:00] VITALS: BP 136/51
--- NOTE | 2019-08-11 09:45 | NUR ---
RECEIVED A CALL FROM LEOBARDO THE BENDING ROLL HAND FROM [facility] [phone]. LEOBARDO WANTS TO FOLLOW UP WITH PT'S PROCEDURE THAT SHE HAS RECEIVED A MESSAGE OVER THE WEEKEND ON REGARDS, EXPLAINED TO LEOBARDO THAT DR OLIVERA AND DR MELLO AGREED TO PREFORM DEBRIDEMENT ON PT'S ULCER. LEOBARDO WAS AWARE. INFORMED LEOBARDO THAT PICC LINE WAS ORDER FOR PT BY DR MELLO AND PER LEOBARDO, SHE WILL NOTIFY [facility] FOR CONSENT. PROVIDED FAX # FOR CONSENT.
--- NOTE | 2019-08-11 10:03 | NUR ---
RECEIVED A CALL FROM KATIUSKA OSORIO THE LOCAL TELEPHONE OPERATOR FROM [facility]. KATIUSKA WAS AWARE THAT PICC LINE CONSENT IS NEEDED AND WAS ORDER BY DR MELLO. PER KATIUSKA, SHE WILL FAX THE CONSENT ONCE IT'S READY. KATIUSKA WAS ALSO AWARE THAT PT IS GOING TO GET DEBRIDEMENT WITH DR OLIVERA.
--- NOTE | 2019-08-11 10:55 | NUR ---
PATIENT IS OFF UNIT TO OR. PATIENT IS IN STABLE CONDITION.
[2019-08-11] MEDS ORDERED: LIDOCAINE 1% 500 MG/50 ML VIAL ONE (11:48)
[2019-08-11] MEDS ORDERED: BUPIVACAINE-MPF 0.25% 30 ML VIAL INJ ONE (11:49)
--- NOTE | 2019-08-11 12:20 | NUR ---
PATIENT CAME BACK FROM OR TO THE UNIT. VITAL SIGNS TAKEN. PATIENT IS RESTING ON BED AT THIS TIME. NO SIGNS OF DISTRESS NOTED.
[2019-08-11] MEDS ORDERED: THERAHONEY WOUND DRESSING TP SCH (13:00)
[2019-08-11] MEDS: POLYETHYLENE GLYCOL 17 GM/PKT PO SCH (13:10)
[2019-08-11] MEDS: LISINOPRIL 20 MG TAB PO SCH ×2 (13:11→21:01)
[2019-08-11] MEDS: metFORMIN 500 MG TAB PO SCH ×2 (13:11→17:32)
[2019-08-11] MEDS: carBAMazepine 200 MG TAB PO SCH ×2 (13:11→21:01)
[2019-08-11] MEDS: SIMVASTATIN 20 MG TAB PO SCH (13:12)
[2019-08-11] MEDS: FUROSEMIDE 40 MG TAB PO SCH ×2 (13:12→17:32)
[2019-08-11] MEDS: DIVALPROEX 500 MG TABEC PO SCH ×2 (13:12→20:59)
[2019-08-11] MEDS: amLODIPine 5 MG TAB PO SCH (13:12)
[2019-08-11] MEDS: MUPIROCIN CA NASAL 2% 1GM TUBE NS SCH (13:13)
[2019-08-11] MEDS: METOPROLOL 50 MG TAB PO SCH ×2 (13:13→21:00)
[2019-08-11] MEDS: CALCIUM CARBONATE 500 MG TAB PO SCH ×2 (13:13→21:00)
[2019-08-11] MEDS: NACL 0.9% 1,000 ML IV SCH ×2 (13:13→18:55)
[2019-08-11] MEDS: CHLORHEXADINE GLUC 2% CLOTH TP SCH (13:14)
[2019-08-11] MEDS: COMPOSITE DRESSING TP SCH (13:15)
--- NOTE | 2019-08-11 13:16 | NUR ---
ADMINISTERED AM SCHEDULED MEDS PER MD ORDER, PATIENT TOLERATED WELL. MEDS ED PROVIDED TO PATIENT AND REINFORCEMENT NEEDED. CHECKED BLOOD GLUCOSE 195, HOLD HUMALOG DUE TO PT HAS BEEN NPO FOR PROCEDURE. PT PULLED OUT IV IN OR. NO IV ACCESS AT THIS TIME, AWAITING FOR CONSENT FOR PICC LINE. PATIENT IS RESTING ON BED AT THIS TIME. NO SIGNS OF DISTRESS NOTED. SAFETY MEASURES IN PLACE. TELE MONITOR ATTACHED.
--- NOTE | 2019-08-11 14:16 | NUR ---
STILL PENDING FOR PICC LINE CONSENT FROM CONSERVATOR. CALLED KATIUSKA OSORIO THE SIDING COREBOARD INSPECTOR TO FOLLOW UP, NO ANSWER AND LEFT A MESSAGE TO RETURN CALL.
--- NOTE | 2019-08-11 15:15 | NUR ---
ATTEMPTED TO START IV ON PT. PATIENT REFUSED AND NOT COOPERATIVE, ED PROVIDED. FUGITIVE INVESTIGATOR ALSO TRIED TO STATRT IV, BUT PT WAS KEEPING ON PUSH AWAY. UNABLE TO START IV. PT IS RESTING ON BED. NO SIGNS OF DISTRESS NOTED. SAFETY MEASURES IN PLACE. BED IN LOW POSITION AND CALL LIGHT WITHIN REACH. BED ALARM ACTIVATED.
[2019-08-11 16:00] VITALS: BP 124/63
--- NOTE | 2019-08-11 16:20 | NUR ---
STILL PENDING FOR PICC LINE CONSENT FROM CONSERVATOR. CALLED KATIUSKA OSORIO THE MARINE UNDERWRITER TO FOLLOW UP AGAIN, NO ANSWER AND LEFT A MESSAGE TO RETURN CALL.
--- NOTE | 2019-08-11 17:33 | NUR ---
ADMINISTERED MEDS PER MD ORDER, MEDS ED PROVIDED AND REINFORCEMENT NEEDED. PT REFUSED TO START IV AND KEEP ON PUSHING HANDS AWAY. NO SIGNS OF DISTRESS NOTED. SAFETY MEASURES IN PLACE. BED IN LOW POSITION AND BED ALARM ACTIVATED.
--- NOTE | 2019-08-11 18:13 | NUR ---
PATIENT RECEIVED HER DINNER TRAY, ADMINISTERED HUMALOG 4 UNITS FOR 208 BG, PATIENT TOLERATED WELL. PATIENT IS EATING DINNER WITH ASSISTANCE FROM PROFESSOR OF LEGAL STUDIES AT THIS TIME. NO SIGNS OF DISTRESS NOTED. SAFETY MEASURES IN PLACE. BED IN LOW POSITION AND CALL LIGHT WITHIN REACH. BED ALARM ACTIVATED.
--- NOTE | 2019-08-11 18:35 | NUR ---
RECEIVED FAX FOR CONSENT FROM [facility]. PLACED INTO PT'S CHART. AWAITING FOR DR MELLO'S CONSENT FOR PICC LINE. INTEGRATED PROGRAM TEACHER WAS AWARE.
--- NOTE | 2019-08-11 19:23 | NUR ---
ENDORSED PT AT BEDSIDE TO LABORER BITUMINOUS PAVING NURSE FOR CONTINUITY OF CARE. PATIENT IS AWAKE AND RESTING ON BED. NO SIGNS OF DISTRESS NOTED. ENDORSED PICC LINE PLACEMENT AND INFORMED PICC LINE CONSENT RE[facility]IVED FROM [facility], BUT MISSING DR MELLO'S SIGNATURE. PATIENT IS IN STABLE CONDITION. SAFETY MEASURES IN PLACE.
--- NOTE | 2019-08-11 19:24 | NUR ---
RECEIVED REPORT FROM AM SHIFT NURSE. PATIENT ALERT AND ORIENTED X 2. NO APPARENT DISTRESS NOTED. NO IV ACCESS AT THIS TIME. WITH ORDER FROM MD TO INSERT PICC LINE. CONSENT FROM RESPONSIBLE CONSTITUTION PARTY IN CHART. WILL FOLLOW-UP. S/P WOUND DEBRIDEMENT. DRESSING CLEAN, DRY AND INTACT AT THIS TIME. WILL CONTINUE TO MONITOR.
--- NOTE | 2019-08-11 21:22 | NUR ---
PATIENT AWAKE IN BED. BED ON LOW POSITION. BED ALARM ON. NO APPARENT DISTRESS NOTED. INFORMED SUPERVISOR TICKET SALES FOR PICC LINE INSERTION. WILL CONTINUE TO MONITOR.
--- NOTE | 2019-08-11 23:20 | NUR ---
PATIENT ASLEEP IN BED. TURNED AND REPOSITIONED FOR COMFORT. NO APPARENT DISTRESS NOTED. WILL CONTINUE TO MONITOR.
[2019-08-12] VITALS: BP 120/86
[2019-08-12] MEDS: DILTIAZEM 60 MG TAB PO SCH ×4 (00:36→18:07)
[2019-08-12] MEDS: HYDRAGUARD CREAM TP SCH ×2 (00:44→13:40)
[2019-08-12] MEDS: MILD SOAP AND WATER TP SCH ×2 (00:45→13:39)
[2019-08-12] MEDS: NACL 0.9% IRR 250 ML BOTTLE IR SCH ×2 (00:45→13:39)
--- NOTE | 2019-08-12 01:15 | NUR ---
FOLLOWED-UP WITH TERMINAL CARMAN FOR PICC LINE INSERTION. ORDER ALREADY PLACED. NO APPARENT DISTRESS NOTED. WILL CONTINUE TO MONITOR.
[2019-08-12] MEDS: VANCOMYCIN 1,000 MG in DEXTROSE 5% 250 ML IV SCH (02:00)
--- NOTE | 2019-08-12 03:15 | NUR ---
ROUNDS DONE. PATIENT ASLEEP IN BED. VISIBLE CHEST RISE AND FALL NOTED. NO APPARENT DISTRESS NOTED. WILL CONTINUE TO MONITOR.
[2019-08-12] MEDS: NACL 0.9% 1,000 ML IV SCH ×2 (04:55→17:23)
--- NOTE | 2019-08-12 05:10 | NUR ---
PATIENT AWAKE IN BED, RESTING. NO RESPIRATORY DISTRESS NOTED. BED ON LOW POSITION. TURNED AND REPOSITIONED FOR COMFORT. WILL CONTINUE TO MONITOR.
[2019-08-12] MEDS: INSULIN LISPRO SLIDING SCALE 100 UNITS/ML VIAL SUBQ PRN ×3 (06:11→18:08)
[2019-08-12] MEDS: BLOOD GLUCOSE MONITORING 1 DEV DEV FS SCH ×3 (06:12→16:30)
--- NOTE | 2019-08-12 06:35 | NUR ---
PATIENT ASLEEP IN BED. VISIBLE CHEST RISE AND FALL NOTED. NO APPARENT DISTRESS NOTED. WILL CONTINUE TO MONITOR.
--- NOTE | 2019-08-12 07:00 | NUR ---
ENDORSED TO AM SHIFT NURSE FOR CONTINUITY OF CARE.
[2019-08-12 08:00] VITALS: BP 134/60
--- NOTE | 2019-08-12 08:06 | NUR ---
PICC LINE NURSE MAGGIE CALLED ABOUT CONSENT CLARIFICATION. LEFT PHONE NUMBER FOR ANY QUESTIONS SINCE HE IS AN HOUR AWAY. [phone]
[2019-08-12] MEDS: POLYETHYLENE GLYCOL 17 GM/PKT PO SCH (08:25)
[2019-08-12] MEDS: metFORMIN 500 MG TAB PO SCH ×2 (08:26→17:23)
[2019-08-12] MEDS: carBAMazepine 200 MG TAB PO SCH (08:26)
[2019-08-12] MEDS: SIMVASTATIN 20 MG TAB PO SCH (08:26)
[2019-08-12] MEDS: CALCIUM CARBONATE 500 MG TAB PO SCH (08:27)
[2019-08-12] MEDS: LISINOPRIL 20 MG TAB PO SCH (08:27)
[2019-08-12] MEDS: DIVALPROEX 500 MG TABEC PO SCH (08:27)
[2019-08-12] MEDS: FUROSEMIDE 40 MG TAB PO SCH ×2 (08:27→17:23)
[2019-08-12] MEDS: amLODIPine 5 MG TAB PO SCH (08:28)
[2019-08-12] MEDS: METOPROLOL 50 MG TAB PO SCH (08:28)
[2019-08-12] MEDS: MUPIROCIN CA NASAL 2% 1GM TUBE NS SCH (08:38)
[2019-08-12] MEDS: CHLORHEXADINE GLUC 2% CLOTH TP SCH (08:46)
--- NOTE | 2019-08-12 08:47 | NUR ---
ADMINISTERED MEDICATION PRESCRIBED PER MD ORDER. CHECKED BP PRIOR TO ADMINISTERING MEDICATIONS. RESULTED IN 134/60. CRUSHED MEDICATIONS AND PUT IN APPLESAUCE. PT TOLERATED WELL. NO NOTES OF ASPIRATION. MEDICATION EDUCATION PERFORMED TO PATIENT. CHG WIPE DOWN PERFORMED. PT TOLERATED WELL. NO COMPLAINTS OF PAIN AT THIS TIME. SAFETY MEASURES IN PLACE. WILL CONTINUE TO MONITOR
--- NOTE | 2019-08-12 09:06 | NUR ---
OBTAINED CONSENT FROM DR MELLO FOR PICC LINE. PER DR MELLO, MIDLINE IS ALSO OK. ALSO INFORMED DR MELLO THAT PT REFUSED LAB THIS AM AND NOT COOPERATIVE. DR MELLO WAS AWARE. CALLED PICC LINE RN AND SPOKE WITH MAGGIE, INFORMED MAGGIE THAT CONSENT HAS BEEN COMPLETED BY AND CONSERVATOR, MAGGIE WAS AWARE AND STATED THAT HE WILL BE ARRIVE AROUND [phone]. NOTIFIED STEREOTYPER WELL.
--- NOTE | 2019-08-12 09:39 | NUR ---
PATIENT AWAKE AND RESTING ON BED AT THIS TIME. FALCC 0. RESPIRATION EVEN AND UNLABORED ON RA. NO SIGNS OF DISTRESS NOTED. SAFETY MEASURES IN PLACE. BED IN LOW POSITION AND CALL LIGHT WITHIN REACH. BED ALARM ACTIVATED.
--- NOTE | 2019-08-12 09:45 | NUR ---
CALLED DR. ESTEVES ABOUT CLARIFICATION OF ATB ORDER PRIOR TO DISCHARGE. LEFT A MESSAGE WITH THE SCIENTIST PROPAGATOR AND SAID SHE WILL PAGE ME BACK WHEN HE RECEIVES MY MESSAGE.
--- NOTE | 2019-08-12 11:15 | NUR ---
DR. ESTVEES CALLED BACK WITH DISCHARGE ORDERS FOR: IV VANCOCIN 1,000MG IN DEXTROSE 5% 250ML FOR 7 DAYS AND DAILY IV ROCEPHIN 1 GRAM FOR 7 DAYS. REPEATED ORDER BACK TO MD AND CONFIRMED.
[2019-08-12] MEDS ORDERED: LORazepam 2 MG/ML VIAL IM/IVP PRN (11:30)
--- NOTE | 2019-08-12 11:31 | NUR ---
PATIENT AGITATED AND COMBATIVE PRIOR TO PICC LINE INSERTION. ONE TIME DOSE ATIVAN GIVEN PER MD ORDER. PATIENT TOLERATED WELL. MEDICATION EDUCATION PERFORMED. PICC LINE WILL BE INSERTED ONCE PATIENT HAS CALMED DOWN. SAFETY MEASURES IN PLACE
--- NOTE | 2019-08-12 11:45 | NUR ---
PICC LINE WAS INSERTED AND PT TOLERATED WELL. AWAITING FOR CHEST X RAY TO CONFIRM PLACEMENT. PATIENT IS RESTING ON BED AT THIS TIME. NO SIGNS OF DISTRESS NOTED. SAFETY MEASURES IN PLACE. BED IN LOW POSITION AND CALL LIGHT WITHIN REACH. FALL RISK PROTOCOL IN PLACE AND BED ALARM ACTIVATED.
--- NOTE | 2019-08-12 12:34 | NUR ---
PATIENT RECEIVED HER LUNCH TRAY, ADMINISTERED HUMALOG 4 UNITS FOR BG 213, PATIENT TOLERATED WELL. NO SIGNS OF DISTRESS NOTED. SAFETY MEASURES IN PLACE.
--- NOTE | 2019-08-12 12:40 | NUR ---
ADMINISTERED SCHEDULED MED DILTIAZEM 60 MP PO PER MD ORDER, UNABLE TO SCAN AND OCTAVIA ENTER DUE TO SCANNER MALFUNCTION, PATIENT TOLERATED WELL. MED ED PROVIDED TO PATIENT AND REINFORCEMENT NEEDED. PATIENT IS AWAKE AND READY TO HAVE LUNCH ON BED AT THIS TIME. NO SIGNS OF DISTRESS NOTED. SAFETY MEASURES IN PLACE. BED IN LOW POSITION AND CALL LIGHT WITHIN REACH. BED ALARM ACTIVATED.
[2019-08-12] MEDS ORDERED: VANCOMYCIN 1,000 MG in DEXTROSE 5% 250 ML IV SCH (13:00)
[2019-08-12] MEDS: COMPOSITE DRESSING TP SCH (13:39)
--- NOTE | 2019-08-12 13:40 | NUR ---
ADMINISTERED MED PER MD ORDER, PT TOLERATED WELL. MED ED PROVIDED AND REINFORCEMENT NEEDED. WITH ASSIST FROM [facility], PROVIDED WOUND CARE, PT TOLERATED WELL. NO SIGNS OF DISTRESS NOTED. WOUND PICTURES TAKEN. [facility] ED PROVIDED AND REINFORCEMENT NEEDED. PATIENT IS RESTING ON BED AT THIS TIME. SAFETY MEASURES IN PLACE. BED IN LOW POSITION AND CALL LIGHT WITHIN REACH. BED ALARM ACTIVATED.
--- NOTE | 2019-08-12 14:30 | NUR ---
PATIENT IN BED ASLEEP. RESPONSIVE TO VERBAL AND TACTILE STIMULI. ABLE TO MAKE SOME NEEDS KNOWN. RESPIRATIONS EVEN AND UNLABORED WITH NO SOB OR RESPIRATORY DISTRESS. SKIN WARM AND DRY TO TOUCH. NO COMPLAINTS OR CONCERNS AT THIS TIME. FREQUENT CHECKS MADE. SAFETY MEASURES: HOB ELEVATED, BED IN LOWEST POSITION, AND CALL LIGHT WITHIN REACH.
--- NOTE | 2019-08-12 14:58 | NUR ---
RD RECOMMENDATIONS: VITAMIN C 500 MG BID GIVEN TO MEL COLON. ANGEL GO, RD
--- NOTE | 2019-08-12 15:16 | NUR ---
RECEIVED PHONE CALL FROM DIETITIAN ANGEL, SAID PT NEEDS VITAMIN C 500MG BID, PO. REPEATED ORDER BACK AND IT WAS CONFIRMED
[2019-08-12 16:00] VITALS: BP 112/60
--- NOTE | 2019-08-12 17:31 | NUR ---
ADMINISTERED MEDICATION PRESCRIBED PER MD ORDER. PT TOLERATED WELL. MEDICATION EDUCATION PERFORMED. PT TOLERATED WELL. NEEDS REINFORCEMENT. RESPIRATIONS EVEN AND UNLABORED WITH NO SOB OR RESPIRATORY DISTRESS. WILL CONTINUE TO MONITOR.
--- NOTE | 2019-08-12 17:40 | NUR ---
CALLED [facility] 3X AND NO ANSWER. LEFT A MESSAGE AND INFORMED THAT PT WILL BE TRANSFER. LEFT A CALL BACK #.
--- NOTE | 2019-08-12 17:45 | NUR ---
CALLED [facility] [phone] AND SPOKE WITH HARI. GAVE FULL REPORT TO HARI AND ANSWERED ALL HARI'S QUESTIONS. HARI WAS AWARE THAT PT IS GOING TO TRANSFER TO HER FACILITY AND PLACED IN ROOM 105B. PROVIDED A CALL BACK # FOR FURTHER QUESTION.
--- NOTE | 2019-08-12 18:08 | NUR ---
PT RECEIVED HER DINNER TRAY, ADMINISTERED HUMALOG 2 UNITS AND SCHEDULED MED, PT TOLERATED WELL. NO SIGNS OF DISTRESS NOTED. PT CHANGED INTO PINK AND READY FOR TRANSFER. AWAITING FOR [facility] TO ARRIVE. SAFETY MEASURES IN PLACE. BED IN LOW POSITION AND CALL LIGHT WITHIN REACH.
--- NOTE | 2019-08-12 19:10 | NUR ---
ENDORSED TO NIGHTSHIFT NURSE AT BEDSIDE. PT RESTING IN BED. SKIN WARM AND DRY TO TOUCH. RESPIRATIONS EVEN AND UNLABORED WITH NO SOB OR RESPIRATORY DISTRESS. SAFETY MEASURES: HOB ELEVATED, BED IN LOWEST POSITION, AND CALL LIGHT WITHIN REACH. PT IS STABLE. Addendum: 08/12/19 at 1934 by Belen Boston RN M&J ARRIVED. DISCHARGE INSTRUCTION PROVIDED TO PATIENT, EDUCATED PT ON FOLLOW UP WITH MD, MEDS REGIMEN, SIDE EFFECTS, WOUND CARE. REINFORCEMENT NEEDED. WOUND PICTURES TAKEN. VACCINES ARE UP TO DATE. REMOVED AL ARM BANDS. PT IS DISCHARGE WITH PICC LINE AND GORDON. PT IS IN STABLE CONDITION.
[2019-08-12] MEDS ORDERED: ASCORBIC ACID 500 MG TAB PO SCH (21:00)
== END 2019-08-12 19:30 | DRG 720 ==
LOC: MED 15:17 → MTU 17:05
PROVIDERS: ADMIT Preventive Medicine Preventive Medicine/Occupational Environmental Medicine; ATTEND Preventive Medicine Preventive Medicine/Occupational Environmental Medicine
PROC: 0JB70ZZ Excision of Back Subcutaneous Tissue and Fascia, Open Approach (ICD-10-PCS; principal; 2019-08-11 11:00)
PROC: 02HV33Z Insertion of Infusion Device into Superior Vena Cava, Percutaneous Approach (ICD-10-PCS; 2019-08-12)
PROC: B548ZZA Ultrasonography of Superior Vena Cava, Guidance (ICD-10-PCS; 2019-08-12)
DX: A41.9 Sepsis, unspecified organism (principal); L89.159 Pressure ulcer of sacral region, unspecified stage; L89.319 Pressure ulcer of right buttock, unspecified stage; I69.351 Hemiplegia and hemiparesis following cerebral infarction affecting right dominant side; E11.52 Type 2 diabetes mellitus with diabetic peripheral angiopathy with gangrene; L89.629 Pressure ulcer of left heel, unspecified stage; F03.90 Unspecified dementia, unspecified severity, without behavioral disturbance, psychotic disturbance, mood disturbance, and anxiety; D64.9 Anemia, unspecified; H54.7 Unspecified visual loss; N39.0 Urinary tract infection, site not specified; B96.1 Klebsiella pneumoniae [K. pneumoniae] as the cause of diseases classified elsewhere; K21.9 Gastro-esophageal reflux disease without esophagitis; I10 Essential (primary) hypertension; E78.5 Hyperlipidemia, unspecified; E03.9 Hypothyroidism, unspecified; G40.909 Epilepsy, unspecified, not intractable, without status epilepticus; Z74.01 Bed confinement status; Z22.322 Carrier or suspected carrier of Methicillin resistant Staphylococcus aureus; Z79.899 Other long term (current) drug therapy
CPT/HCPCS: 36415; 51702; 71045; 73610; 80048; 80053; 80156; 80202; 81001; 82948; 83605; 83880; 84443; 85025; 85610; 85651; 85730; 86140; 87040; 87070; 87075; 87081; 87086; 87186; 88304; 93005; 99285; A6248; J0696; J1815; J2001; J2060; J3370; J3490; J7030; J7042; J7060; Q0092